=== PATIENT | male | born 1940 | race Caucasian/White ===

== ENCOUNTER → 2018-04-24 07:10 | Outpatient (CLI) | payer OTHER, SELFPAY ==
[2018-04-24 08:15] LABS: Add Manual Diff / Slide Review NO; Basophils Percent Auto 0.3 % (0-2); Eosinophils Percent Auto 1.2 % (2-4); Hematocrit 46.4 % (41-53); Hemoglobin 16.3 g/dL (13.5-17.5); Lymphocytes Percent Auto 18.4 % (25-40); Mean Corpuscular HGB Conc 35.1 % (30-36); Mean Corpuscular Hemoglobin 31.7 PG (26-34); Mean Corpuscular Volume 90.4 fL (80-100); Monocytes Percent Auto 6.7 % (3-14); Neutrophils Absolute Auto 5000 /uL (3000-5900); Neutrophils Percent Auto 73.4 % (50-75); Platelet Count 206 X10^3/uL (150-400); Red Blood Cell Count 5.13 X10^6/uL (4.5-5.9); Red Cell Distribution Width 13.5 % (11.6-14.8); White Blood Cell Count 6.8 X10^3/uL (4.5-11.0)
[2018-04-24 08:18] LABS: Alanine Aminotransferase 49 IU/L (21-72); Albumin 3.9 g/dL (3.5-5.0); Albumin Globulin Ratio 1.6 (1.0-2.8); Alkaline Phosphatase 41 U/L (38-126); Aspartate Aminotransferase 25 IU/L (17-59); Bilirubin Total 0.6 mg/dL (0.2-1.3); Blood Urea Nitrogen 18 mg/dL (9-20); Carbon Dioxide 31 mmol/L (22-32); Chloride 105 mmol/L (98-107); Estimated Glomerular Filt Rate > 60.0 mL/min (>60); Globulin 2.4 g/dL (1.7-4.1); Glucose 84 mg/dL (80-110); HEMOLYSIS 21 (0-50); Potassium 4.1 mmol/L (3.4-5.1); Sodium 143 mmol/L (137-145); Total Protein 6.3 g/dL (6.3-8.2)
[2018-04-24 09:26] LABS: Free T4, Direct Thyroxine 1.23 ng/dL (0.78-2.19)
== END ==
PROVIDERS: PCP Family Medicine; Visit Provider Internal Medicine
DX: E03.9 Hypothyroidism, unspecified (principal); G62.9 Polyneuropathy, unspecified; I63.9 Cerebral infarction, unspecified; I51.3 Intracardiac thrombosis, not elsewhere classified
CPT/HCPCS: 36415; 80053; 84439; 84443; 85025

== ENCOUNTER → 2018-06-19 07:04 | Outpatient (CLI) | payer OTHER, SELFPAY ==
[2018-06-19 09:10] LABS: Free T4, Direct Thyroxine 1.17 ng/dL (0.78-2.19)
[2018-06-19 09:24] LABS: Thyroid Stimulating Hormone 0.57 uIU/mL (0.47-4.68)
== END ==
PROVIDERS: PCP Family Medicine; Visit Provider Internal Medicine
DX: R79.89 Other specified abnormal findings of blood chemistry (principal)
CPT/HCPCS: 36415; 84439; 84443

== ENCOUNTER → 2018-06-25 09:27 | Outpatient (CLI) | payer OTHER, SELFPAY ==
[2018-06-25 11:16] LABS: Cholesterol 124 mg/dL (140-199); HDL Cholesterol 33 mg/dL (40-60); LDL Cholesterol Calculated 68 mg/dL (<100); Triglycerides 117 mg/dL (35-150)
== END ==
PROVIDERS: PCP Family Medicine; Visit Provider Internal Medicine
DX: E78.00 Pure hypercholesterolemia, unspecified (principal); I25.10 Atherosclerotic heart disease of native coronary artery without angina pectoris
CPT/HCPCS: 36415; 80061

== ENCOUNTER → 2018-10-09 14:46 | Outpatient (CLI) | payer OTHER, SELFPAY ==
--- NOTE | 2018-10-09 | DI.US.S_ITS ---
PROCEDURE: US CAROTID DOPPLER BI INDICATIONS: RIGHT OCCLUSION TECHNIQUE: Color and pulse Doppler interrogation was performed of both carotid systems, with image documentation and velocity measurements. COMPARISON: [facility], , CAROTID ARTERY DOPPLER BILAT, 07/28/2012, 10:33. [facility], [place], CAROTID ARTERY DOPPLER BILAT, 09/03/2017, 11:33. [facility], , CAROTID ARTERY DOPPLER BILAT, 02/07/2015, 11:08. FINDINGS: Stenosis calculations are based on SRU (Society of Radiologists in Ultrasound) criteria. Right side: Brachial blood pressure: 134/80 mm Hg. Common carotid artery peak systolic velocity: 74 cm/sec (prior 59 cm/s). Internal carotid artery peak systolic velocity: Occluded, as before Internal carotid artery end diastolic velocity: Occluded, as before External carotid artery peak systolic velocity: 69 cm/sec (prior 74 cm/s). ICA/CCA peak systolic ratio: Occluded. 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 Percent internal carotid artery stenosis: 100% Vertebral artery: Flow direction is antegrade. Left side: Brachial blood pressure: 137/80 mm Hg. Common carotid artery peak systolic velocity: 95 cm/sec (prior 88 cm/s). Internal carotid artery peak systolic velocity: 68 cm/sec (prior 61 cm/s). Internal carotid artery end diastolic velocity: 22 cm/sec (prior 27 cm/s). External carotid artery peak systolic velocity: 60 cm/sec (prior 59 cm/s). ICA/CCA peak systolic ratio: 0.7 (prior 0.7). Jaramillo scale imaging description: Mild atherosclerotic changes are seen. Percent internal carotid artery stenosis: Less than 50% by velocity criteria. Vertebral artery: Flow direction is antegrade. 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 Dictated by: Alejandro Cleveland M.D. on 10/09/2018 at 14:53 Approved by: Alejandro Cleveland M.D. on 10/09/2018 at 14:55
== END ==
PROVIDERS: PCP Family Medicine; Visit Provider Internal Medicine Cardiovascular Disease
DX: I65.21 Occlusion and stenosis of right carotid artery (principal)
CPT/HCPCS: 93880

== ENCOUNTER → 2018-12-09 07:09 | Outpatient (CLI) | payer OTHER, SELFPAY ==
[2018-12-09 08:11] LABS: Add Manual Diff / Slide Review NO; Basophils Absolute Auto 0 /uL (0-100); Basophils Percent Auto 0.2 % (0-2); Eosinophils Absolute Auto 100 /uL (0-450); Hematocrit 46.5 % (41-53); Hemoglobin 16.2 g/dL (13.5-17.5); Lymphocytes Absolute Auto 1100 /uL (1100-4500); Lymphocytes Percent Auto 15.8 % (25-40); Mean Corpuscular HGB Conc 34.8 % (30-36); Mean Corpuscular Hemoglobin 31.2 PG (26-34); Mean Corpuscular Volume 89.7 fL (80-100); Monocytes Absolute Auto 600 /uL (0-900); Monocytes Percent Auto 8.2 % (3-14); Neutrophils Absolute Auto 5300 /uL (1500-7000); Neutrophils Percent Auto 74.8 % (50-75); Platelet Count 197 X10^3/uL (150-400); Red Blood Cell Count 5.19 X10^6/uL (4.5-5.9); Red Cell Distribution Width 14.3 % (11.6-14.8); White Blood Cell Count 7.1 X10^3/uL (4.5-11.0)
[2018-12-09 08:26] LABS: Alanine Aminotransferase 40 IU/L (21-72); Albumin 4.2 g/dL (3.5-5.0); Albumin Globulin Ratio 1.6 (1.0-2.8); Alkaline Phosphatase 48 U/L (38-126); Aspartate Aminotransferase 26 IU/L (17-59); BUN Creatinine Ratio 16.7 (6-22); Bilirubin Total 0.9 mg/dL (0.2-1.3); Blood Urea Nitrogen 15 mg/dL (9-20); Calcium 9.3 mg/dL (8.4-10.2); Carbon Dioxide 31 mmol/L (22-32); Chloride 102 mmol/L (98-107); Cholesterol 116 mg/dL (140-199); Estimated Glomerular Filt Rate > 60.0 mL/min (>60); Globulin 2.6 g/dL (1.7-4.1); Glucose 99 mg/dL (80-110); HDL Cholesterol 31 mg/dL (40-60); HEMOLYSIS < 15 (0-50); LDL Cholesterol Calculated 67 mg/dL (<100); Potassium 4.5 mmol/L (3.4-5.1); Sodium 139 mmol/L (137-145); Total Protein 6.8 g/dL (6.3-8.2); Triglycerides 91 mg/dL (35-150)
[2018-12-09 09:06] LABS: TSH w/ Reflex to FT4 0.33 uIU/mL (0.47-4.68)
[2018-12-09 10:02] LABS: Free T4, Direct Thyroxine 1.19 ng/dL (0.78-2.19)
== END ==
PROVIDERS: PCP Family Medicine; Visit Provider Family Medicine
DX: E03.9 Hypothyroidism, unspecified (principal); E78.00 Pure hypercholesterolemia, unspecified; I25.10 Atherosclerotic heart disease of native coronary artery without angina pectoris
CPT/HCPCS: 36415; 80053; 80061; 84439; 84443; 85025

== ENCOUNTER 2019-04-17 13:19 | Emergency (ER) | payer OTHER, SELFPAY ==
[2019-04-17 13:23] VITALS: BP 113/65; PULSE 68; RESP 16; TEMP 36.6; O2SAT 99; BMI 27.8
--- NOTE | 2019-04-17 13:32 | DI.RAD.S_ITS ---
PROCEDURE: XR HIP W PEL IF DONE RT 2V INDICATIONS: fall w/ hematoma on right hip TECHNIQUE: AP pelvis with lateral view(s) of the right hip(s). COMPARISON: [facility], CT, CT ABDOMEN PELVIS WITH CONTRAST, 12/11/2017, 13:20. [facility], CT, ABDOMEN/PELVIS WITH CONTRAST, 02/03/2016, 9:23. FINDINGS: Bones: No fractures or dislocations. Pelvic ring appears intact. No suspicious bony lesions. Mild degenerative joint disease in hips and sacroiliac joints bilaterally. Soft tissues: The visualized bowel gas pattern is normal. No suspicious soft tissue calcifications. IMPRESSION: No acute bony injuries. Dictated by: Fay Bell M.D. on 04/17/2019 at 13:59 Approved by: Fay Bell M.D. on 04/17/2019 at 14:00
[2019-04-17 14:02] LABS: Add Manual Diff / Slide Review NO; Basophils Absolute Auto 0 /uL (0-100); Basophils Percent Auto 0.3 % (0-2); Eosinophils Absolute Auto 100 /uL (0-450); Eosinophils Percent Auto 1.2 % (2-4); Hematocrit 39.9 % (41-53); Hemoglobin 13.7 g/dL (13.5-17.5); Lymphocytes Absolute Auto 1000 /uL (1100-4500); Lymphocytes Percent Auto 14.3 % (25-40); Mean Corpuscular HGB Conc 34.3 % (30-36); Mean Corpuscular Hemoglobin 31.1 PG (26-34); Mean Corpuscular Volume 90.5 fL (80-100); Monocytes Absolute Auto 600 /uL (0-900); Monocytes Percent Auto 7.7 % (3-14); Neutrophils Absolute Auto 5600 /uL (1500-7000); Neutrophils Percent Auto 76.5 % (50-75); Platelet Count 205 X10^3/uL (150-400); Red Blood Cell Count 4.41 X10^6/uL (4.5-5.9); Red Cell Distribution Width 13.9 % (11.6-14.8); White Blood Cell Count 7.3 X10^3/uL (4.5-11.0)
[2019-04-17 14:07] LABS: INR 2.8 (0.9-1.3); Prothrombin Time 32.8 SECONDS (10.1-12.7)
[2019-04-17 14:10] LABS: PTT Partial Thromboplastin Tim 41 SECONDS (26.4-36.2)
--- NOTE | 2019-04-17 14:45 | ED.LOWEXIN ---
HPI - Extremity Injury (Lower) General Chief Complaint: Extremity Injury, Lower Stated Complaint: Fell Bruise down right leg Time Seen by Provider: 04/17/19 14:33 Source: patient Mode of arrival: ambulatory Limitations: no limitations History of Present Illness HPI Narrative: Who presents with a contusion on his right buttock and right leg. He is on Coumadin for atrial fibrillation. He was power washing something when he got tripped up and fell to the ground 2 days ago. He did not hit his head no loss of consciousness. He was moving around okay yesterday however this morning he woke up and had a significant contusion. His x-ray is negative. MD complaint: hip injury and thigh injury Onset (ago): day(s) (2) Related Data Home Medications Medication Instructions Recorded Confirmed multivitamin [Multiple Vitamins] 1 tab PO QDAY #0 08/15/11 12/17/18 omega 3-txx-hdc-fish oil [Fish Oil] 1,000 mg PO BID #0 08/20/11 12/17/18 losartan [Cozaar] 25 mg PO QDAY #0 08/28/17 12/17/18 metoprolol succinate [Toprol XL] 25 mg PO QDAY #0 08/28/17 12/17/18 omeprazole 20 mg PO QPM #0 08/28/17 12/17/18 rosuvastatin 10 mg PO QDAY #0 09/02/17 12/17/18 cholecalciferol (vitamin D3) 2,000 2,000 unit PO DAILY 06/25/18 12/17/18 unit capsule aspirin 81 mg tablet,delayed 81 mg PO DAILY #0 tab 12/17/18 12/17/18 release levothyroxine 75 mcg capsule 75 mcg PO DAILY 12/17/18 12/17/18 Previous Rx's Medication Instructions Recorded warfarin 5 mg tablet 5 mg PO 1700 #120 tab 10/13/18 levothyroxine 75 mcg capsule 75 mcg PO DAILY #60 cap 04/14/19 hydrocodone-acetaminophen [[place]] 1 tab PO Q6H PRN #10 tab 04/17/19 Allergies Allergy/AdvReac Type Severity Reaction Status Date / Time Influenza Virus Vaccines Allergy Unknown Verified 12/17/18 11:41 [INFLUENZA VIRUS VACCINES] Review of Systems Review of Systems GENERAL: Denies chills,fever HEENT: Denies throat pain RESPIRATORY: Denies dyspnea, cough, wheezing CARDIOVASCULAR: Denies chest pain, palpitations GASTROINTESTINAL: Denies nausea, vomiting MUSCULOSKELETAL: Right hip pain SKIN: Contusion NEUROLOGIC: Denies weakness, dizziness, headache, numbness 8 point review of systems is negative except for those stated above and HPI [facility] Medical History CAD (coronary artery disease) (Chronic) Cataract (Chronic) Diverticular disease (Chronic 2003) Foot pain (Chronic 2013) GERD (gastroesophageal reflux disease) (Chronic) 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) Hearing loss (Chronic 2012) LV (left ventricular) mural thrombus (Chronic 2016) Peripheral neuropathy (Chronic 2001) 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 (Resolved) Colon polyps (Resolved 2009) Colorectal cancer (Resolved 1990) Heart failure, diastolic (Resolved 1996) Measles (Resolved) Myocardial infarction (Resolved 1996) Rubella (Resolved) Surgical History Status post colonoscopy (Suspected 2012) Anesthesia (Resolved) Status post colectomy (Resolved 1990) Status post coronary artery stent placement (Resolved 01/2008) Status post tonsillectomy and adenoidectomy (Resolved 2011) Family History (Updated 04/24/18 @ 11:53 by Ashli Luna) Father Heart disease Colon cancer Mother Stroke Heart disease Heart attack Social History marital status: Smoking Status: Never smoker alcohol intake: current (1-3 A WEEK ) substance use type: does not use Family History Father Heart disease Colon cancer Mother Stroke Heart disease Heart attack Social History marital status: Smoking Status: Never smoker alcohol intake: current (1-3 A WEEK ) substance use type: does not use Exam Initial Vital Signs Initial Vital Signs: Vital Signs Temperature 97.9 F 04/17/19 13:23 Pulse Rate 68 04/17/19 13:23 Respiratory Rate 16 04/17/19 13:23 Blood Pressure 113/65 04/17/19 13:23 Pulse Oximetry 99 04/17/19 13:23 GENERAL: Pleasant well-appearing male no acute distress CARDIOVASCULAR: peripheral pulses in tact, cap refill <2 sec RESPIRATORY: No respiratory distress, speaks in full sentences without difficulty EXTREMITIES: Normal range of motion, no clubbing or edema. Neurovascularly intact Right leg neurovascularly intact able to move it easily. NEUROLOGICAL: Cranial nerves II through XII grossly intact. Normal gait and speech. SKIN: Significant contusion on the posterior right thigh and right buttock. Course Orders Ordered: ED Orders 04/17/19 13:32 XR hip w pel if done RT 2V Stat 04/17/19 13:53 Complete Blood Count AUTO DIFF Stat Partial Thromboplastin Time Stat Prothrombin Time INR Stat Vital Signs - 8 hr 04/17/19 13:23 04/17/19 15:02 Temperature 97.9 F Pulse Rate 68 63 Respiratory Rate 16 15 Blood Pressure 113/65 Blood Pressure [Left Arm] 119/63 Pulse Oximetry 99 100 MDM - Extremity Injury (Lower) Lab Data Attestation: I reviewed the patient's lab results. Result diagrams: 04/17/19 13:53 Lab Results 04/17/19 04/17/19 Range/Units 13:53 13:53 WBC 7.3 (4.5-11.0) X10^3/uL RBC 4.41 L (4.5-5.9) X10^6/uL Hgb 13.7 (13.5-17.5) g/dL Hct 39.9 L (41-53) % MCV 90.5 (80-100) fL MCH 31.1 (26-34) PG MCHC 34.3 (30-36) % RDW 13.9 (11.6-14.8) % Plt Count 205 (150-400) X10^3/uL Neut % (Auto) 76.5 H (50-75) % Lymph % (Auto) 14.3 L (25-40) % [place] % (Auto) 7.7 (3-14) % Eos % (Auto) 1.2 L (2-4) % Baso % (Auto) 0.3 (0-2) % Neut # (Auto) 5600 (3199-2361) /uL Lymph # (Auto) 1000 L (7938-5334) /uL [place] # (Auto) 600 (0-900) /uL Eos # (Auto) 100 (0-450) /uL Baso # (Auto) 0 (0-100) /uL PT 32.8 H (10.1-12.7) SECONDS INR 2.8 H (0.9-1.3) APTT 41 H (26.4-36.2) SECONDS Imaging Data right hip: Radiologist's impression: PROCEDURE: XR HIP W PEL IF DONE RT 2V INDICATIONS: fall w/ hematoma on right hip TECHNIQUE: AP pelvis with lateral view(s) of the right hip(s). COMPARISON: [facility], CT, CT ABDOMEN PELVIS WITH CONTRAST, 12/11/2017, 13:20. [facility], CT, ABDOMEN/PELVIS WITH CONTRAST, 02/03/2016, 9:23. FINDINGS: Bones: No fractures or dislocations. Pelvic ring appears intact. No suspicious bony lesions. Mild degenerative joint disease in hips and sacroiliac joints bilaterally. Soft tissues: The visualized bowel gas pattern is normal. No suspicious soft tissue calcifications. IMPRESSION: No acute bony injuries. Dictated by: Fay Bell M.D. on 04/17/2019 at 13:59 MDM Narrative Medical decision making narrative: Patient hemoglobin hematocrit stable. INR earlier today was 3.1 he has already been lysed PCP to hold off Coumadin for tonight. Recheck today is 2.8. I do agree with holding off the Coumadin tonight and resuming tomorrow. Discharge Plan Departure Patient Disposition: Home Clinical Impression: Contusion Qualifiers: Encounter type: initial encounter Contusion area: lower leg Laterality: right Qualified Code(s): S80.11XA - Contusion of right lower leg, initial encounter Discharge Date/Time: 04/17/19 15:04 Interventions: ED Discharge Assessment Last Done: 04/17/19 15:04 Instructions: Contusion Activity Restrictions/Additional Instructions: *You have been diagnosed with large contusion on right leg *What to do: Elevate ice increased movement as tolerated. This will be discolored for a period of time. *Continue to take medications as directed Agree with holding Coumadin tonight and resuming tomorrow as scheduled [place] 1 tablet every 6 hours if needed for severe pain *Follow up with your primary care provider in 2-3 days *Return to ER if you should have increased weakness, numbness tingling or any new, worsening or concerning symptoms CONTROLLED SUBSTANCE DISCHARGE (Narcotoic/benzodiazepine/Flexeril/Phenergan) 1. You have been prescribed narcotic medications, it does have acetaminophen/Tylenol/paracetamol in it so do not take extra Tylenol or Tylenol containing products 2. Please understand that we cannot provide further refills of narcotics, benzodiazepines or controlled substances through the ED and her pain management will need to be through your provider. 3. While on these medications you cannot drive or operate heavy machinery. 4. You cannot sign legal documents or perform any duties such as this. 5. As long as you're taking opiate pain medications he should also be taking a stool softener such as Colace, Dulcolax, MiraLAX or prune juice, to help avoid constipation. Prescriptions: New hydrocodone-acetaminophen [[place]] 5-325 mg tablet 1 tab PO Q6H PRN (Reason: pain) Qty: 10 RF: 0 No Action multivitamin [Multiple Vitamins] 1 EACH tablet 1 tab PO QDAY Qty: 0 RF: 0 omega 7-jsl-tjd-fish oil [Fish Oil] 1,000 MG capsule 1,000 mg PO BID Qty: 0 RF: 0 losartan [Cozaar] 25 MG tablet 25 mg PO QDAY Qty: 0 RF: 0 omeprazole 20 MG capsule,delayed release(DR/EC) 20 mg PO QPM Qty: 0 RF: 0 metoprolol succinate [Toprol XL] 25 MG tablet extended release 24 hr 25 mg PO QDAY Qty: 0 RF: 0 rosuvastatin 10 MG tablet 10 mg PO QDAY Qty: 0 RF: 0 aspirin 81 mg tablet,delayed release (DR/EC) 81 mg PO DAILY Qty: 0 RF: 0 levothyroxine 75 mcg capsule 75 mcg PO DAILY Qty: 60 RF: 2 cholecalciferol (vitamin D3) 2,000 unit capsule 2,000 unit PO DAILY RF: 0 warfarin [Coumadin] 5 mg tablet 5 mg PO 1700 Qty: 120 RF: 3 levothyroxine 75 mcg capsule 75 mcg PO DAILY RF: 0 Referrals: Amandeep Olson MD [Primary Care Provider] -
--- NOTE | 2019-04-17 14:51 | ED_ITS ---
HPI - Extremity Injury (Lower) General Chief Complaint: Extremity Injury, Lower Stated Complaint: Fell Bruise down right leg Time Seen by Provider: 04/17/19 14:33 Source: patient Mode of arrival: ambulatory Limitations: no limitations History of Present Illness HPI Narrative: Who presents with a contusion on his right buttock and right leg. He is on Coumadin for atrial fibrillation. He was power washing something when he got tripped up and fell to the ground 2 days ago. He did not hit his head no loss of consciousness. He was moving around okay yesterday however this morning he woke up and had a significant contusion. His x-ray is negative. MD complaint: hip injury and thigh injury Onset (ago): day(s) (2) Related Data Home Medications Medication Instructions Recorded Confirmed multivitamin [Multiple Vitamins] 1 tab PO QDAY #0 08/15/11 12/17/18 omega 7-noh-ivu-fish oil [Fish Oil] 1,000 mg PO BID #0 08/20/11 12/17/18 losartan [Cozaar] 25 mg PO QDAY #0 08/28/17 12/17/18 metoprolol succinate [Toprol XL] 25 mg PO QDAY #0 08/28/17 12/17/18 omeprazole 20 mg PO QPM #0 08/28/17 12/17/18 rosuvastatin 10 mg PO QDAY #0 09/02/17 12/17/18 cholecalciferol (vitamin D3) 2,000 2,000 unit PO DAILY 06/25/18 12/17/18 unit capsule aspirin 81 mg tablet,delayed 81 mg PO DAILY #0 tab 12/17/18 12/17/18 release levothyroxine 75 mcg capsule 75 mcg PO DAILY 12/17/18 12/17/18 Previous Rx's Medication Instructions Recorded warfarin 5 mg tablet 5 mg PO 1700 #120 tab 10/13/18 levothyroxine 75 mcg capsule 75 mcg PO DAILY #60 cap 04/14/19 hydrocodone-acetaminophen [[place]] 1 tab PO Q6H PRN #10 tab 04/17/19 Allergies Allergy/AdvReac Type Severity Reaction Status Date / Time Influenza Virus Vaccines Allergy Unknown Verified 12/17/18 11:41 [INFLUENZA VIRUS VACCINES] Review of Systems Review of Systems GENERAL: Denies chills,fever HEENT: Denies throat pain RESPIRATORY: Denies dyspnea, cough, wheezing CARDIOVASCULAR: Denies chest pain, palpitations GASTROINTESTINAL: Denies nausea, vomiting MUSCULOSKELETAL: Right hip pain SKIN: Contusion NEUROLOGIC: Denies weakness, dizziness, headache, numbness 8 point review of systems is negative except for those stated above and HPI [facility] Medical History CAD (coronary artery disease) (Chronic) Cataract (Chronic) Diverticular disease (Chronic 2003) Foot pain (Chronic 2013) GERD (gastroesophageal reflux disease) (Chronic) 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) Hearing loss (Chronic 2012) LV (left ventricular) mural thrombus (Chronic 2016) Peripheral neuropathy (Chronic 2001) 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 (Resolved) Colon polyps (Resolved 2009) Colorectal cancer (Resolved 1990) Heart failure, diastolic (Resolved 1996) Measles (Resolved) Myocardial infarction (Resolved 1996) Rubella (Resolved) Surgical History Status post colonoscopy (Suspected 2012) Anesthesia (Resolved) Status post colectomy (Resolved 1990) Status post coronary artery stent placement (Resolved 01/2008) Status post tonsillectomy and adenoidectomy (Resolved 2011) Family History (Updated 04/24/18 @ 11:53 by Ashli Luna) Father Heart disease Colon cancer Mother Stroke Heart disease Heart attack Social History marital status: Smoking Status: Never smoker alcohol intake: current (1-3 A WEEK ) substance use type: does not use Family History Father Heart disease Colon cancer Mother Stroke Heart disease Heart attack Social History marital status: Smoking Status: Never smoker alcohol intake: current (1-3 A WEEK ) substance use type: does not use Exam Initial Vital Signs Initial Vital Signs: Vital Signs Temperature 97.9 F 04/17/19 13:23 Pulse Rate 68 04/17/19 13:23 Respiratory Rate 16 04/17/19 13:23 Blood Pressure 113/65 04/17/19 13:23 Pulse Oximetry 99 04/17/19 13:23 GENERAL: Pleasant well-appearing male no acute distress CARDIOVASCULAR: peripheral pulses in tact, cap refill <2 sec RESPIRATORY: No respiratory distress, speaks in full sentences without difficulty EXTREMITIES: Normal range of motion, no clubbing or edema. Neurovascularly intact Right leg neurovascularly intact able to move it easily. NEUROLOGICAL: Cranial nerves II through XII grossly intact. Normal gait and speech. SKIN: Significant contusion on the posterior right thigh and right buttock. Course Orders Ordered: ED Orders 04/17/19 13:32 XR hip w pel if done RT 2V Stat 04/17/19 13:53 Complete Blood Count AUTO DIFF Stat Partial Thromboplastin Time Stat Prothrombin Time INR Stat Vital Signs - 8 hr 04/17/19 13:23 04/17/19 15:02 Temperature 97.9 F Pulse Rate 68 63 Respiratory Rate 16 15 Blood Pressure 113/65 Blood Pressure [Left Arm] 119/63 Pulse Oximetry 99 100 MDM - Extremity Injury (Lower) Lab Data Attestation: I reviewed the patient's lab results. Result diagrams: 04/17/19 13:53 Lab Results 04/17/19 04/17/19 Range/Units 13:53 13:53 WBC 7.3 (4.5-11.0) X10^3/uL RBC 4.41 L (4.5-5.9) X10^6/uL Hgb 13.7 (13.5-17.5) g/dL Hct 39.9 L (41-53) % MCV 90.5 (80-100) fL MCH 31.1 (26-34) PG MCHC 34.3 (30-36) % RDW 13.9 (11.6-14.8) % Plt Count 205 (150-400) X10^3/uL Neut % (Auto) 76.5 H (50-75) % Lymph % (Auto) 14.3 L (25-40) % [place] % (Auto) 7.7 (3-14) % Eos % (Auto) 1.2 L (2-4) % Baso % (Auto) 0.3 (0-2) % Neut # (Auto) 5600 (8242-7211) /uL Lymph # (Auto) 1000 L (6755-2784) /uL [place] # (Auto) 600 (0-900) /uL Eos # (Auto) 100 (0-450) /uL Baso # (Auto) 0 (0-100) /uL PT 32.8 H (10.1-12.7) SECONDS INR 2.8 H (0.9-1.3) APTT 41 H (26.4-36.2) SECONDS Imaging Data right hip: Radiologist's impression: PROCEDURE: XR HIP W PEL IF DONE RT 2V INDICATIONS: fall w/ hematoma on right hip TECHNIQUE: AP pelvis with lateral view(s) of the right hip(s). COMPARISON: [facility], CT, CT ABDOMEN PELVIS WITH CONTRAST, 12/11/2017, 13:20. [facility], CT, ABDOMEN/PELVIS WITH CONTRAST, 02/03/2016, 9:23. FINDINGS: Bones: No fractures or dislocations. Pelvic ring appears intact. No suspicious bony lesions. Mild degenerative joint disease in hips and sacroiliac joints bilat erally. Soft tissues: The visualized bowel gas pattern is normal. No suspicious soft tissue calcifications. IMPRESSION: No acute bony injuries. Dictated by: Fay Bell M.D. on 04/17/2019 at 13:59 MDM Narrative Medical decision making narrative: Patient hemoglobin hematocrit stable. INR earlier today was 3.1 he has already been lysed PCP to hold off Coumadin for tonight. Recheck today is 2.8. I do agree with holding off the Coumadin tonight and resuming tomorrow. Discharge Plan Departure Patient Disposition: Home Clinical Impression: Contusion Qualifiers: Encounter type: initial encounter Contusion area: lower leg Laterality: right Qualified Code(s): S80.11XA - Contusion of right lower leg, initial encounter Discharge Date/Time: 04/17/19 15:04 Interventions: ED Discharge Assessment Last Done: 04/17/19 15:04 Instructions: Contusion Activity Restrictions/Additional Instructions: *You have been diagnosed with large contusion on right leg *What to do: Elevate ice increased movement as tolerated. This will be discolored for a period of time. *Continue to take medications as directed Agree with holding Coumadin tonight and resuming tomorrow as scheduled [place] 1 tablet every 6 hours if needed for severe pain *Follow up with your primary care provider in 2-3 days *Return to ER if you should have increased weakness, numbness tingling or any new, worsening or concerning symptoms CONTROLLED SUBSTANCE DISCHARGE (Narcotoic/benzodiazepine/Flexeril/Phenergan) 1. You have been prescribed narcotic medications, it does have acetaminophen/Tylenol/paracetamol in it so do not take extra Tylenol or Tylenol containing products 2. Please understand that we cannot provide further refills of narcotics, benzodiazepines or controlled substances through the ED and her pain management will need to be through your provider. 3. While on these medications you cannot drive or operate heavy machinery. 4. You cannot sign legal documents or perform any duties such as this. 5. As long as you're taking opiate pain medications he should also be taking a stool softener such as Colace, Dulcolax, MiraLAX or prune juice, to help avoid constipation. Prescriptions: New hydrocodone-acetaminophen [[place]] 5-325 mg tablet 1 tab PO Q6H PRN (Reason: pain) Qty: 10 RF: 0 No Action multivitamin [Multiple Vitamins] 1 EACH tablet 1 tab PO QDAY Qty: 0 RF: 0 omega 6-fvl-qsz-fish oil [Fish Oil] 1,000 MG capsule 1,000 mg PO BID Qty: 0 RF: 0 losartan [Cozaar] 25 MG tablet 25 mg PO QDAY Qty: 0 RF: 0 omeprazole 20 MG capsule,delayed release(DR/EC) 20 mg PO QPM Qty: 0 RF: 0 metoprolol succinate [Toprol XL] 25 MG tablet extended release 24 hr 25 mg PO QDAY Qty: 0 RF: 0 rosuvastatin 10 MG tablet 10 mg PO QDAY Qty: 0 RF: 0 aspirin 81 mg tablet,delayed release (DR/EC) 81 mg PO DAILY Qty: 0 RF: 0 levothyroxine 75 mcg capsule 75 mcg PO DAILY Qty: 60 RF: 2 cholecalciferol (vitamin D3) 2,000 unit capsule 2,000 unit PO DAILY RF: 0 warfarin [Coumadin] 5 mg tablet 5 mg PO 1700 Qty: 120 RF: 3 levothyroxine 75 mcg capsule 75 mcg PO DAILY RF: 0 Referrals: Amandeep Olson MD [Primary Care Provider] -
[2019-04-17 15:02] VITALS: BP 119/63; PULSE 63; RESP 15; O2SAT 100
== END 2019-04-17 15:04 | disposition home or self-care (01) ==
PROVIDERS: Emergency Provider Emergency Medicine; PCP Family Medicine
DX: S80.11XA Contusion of right lower leg, initial encounter (principal); S30.0XXA Contusion of lower back and pelvis, initial encounter; W01.0XXA Fall on same level from slipping, tripping and stumbling without subsequent striking against object, initial encounter; Z79.01 Long term (current) use of anticoagulants
CPT/HCPCS: 36415; 73502; 85025; 85610; 85730; 99282; 99284

== ENCOUNTER → 2019-06-03 12:02 | Outpatient (CLI) | payer OTHER, SELFPAY ==
--- NOTE | 2019-06-03 12:04 | DI.US.S_ITS ---
PROCEDURE: US PERIPH VENOUS LOW EXTREM RT INDICATIONS: RIGHT LEG SWELLING AND REDNESS TECHNIQUE: Real-time imaging, as well as color and pulse Doppler interrogation, were performed of the lower extremity deep veins from the inguinal ligament to the popliteal fossa. COMPARISON: None. FINDINGS: The common femoral, femoral and popliteal veins are normally compressible, and free of intraluminal thrombus. Color and pulse Doppler demonstrate normal phasic intraluminal flow. There is normal augmentation response to distal compression maneuver. IMPRESSION: No evidence of deep vein thrombosis involving the right lower extremity. Dictated by: Kristen Trotter MD, PhD on 06/03/2019 at 12:48 Approved by: Kristen Trotter MD, PhD on 06/03/2019 at 12:48
== END ==
PROVIDERS: PCP Family Medicine; Visit Provider Family Medicine
DX: M79.89 Other specified soft tissue disorders (principal)
CPT/HCPCS: 93971

== ENCOUNTER → 2019-10-09 07:49 | Outpatient (CLI) | payer OTHER, SELFPAY ==
[2019-10-09 08:17] LABS: Add Manual Diff / Slide Review NO; Basophils Absolute Auto 0 /uL (0-100); Basophils Percent Auto 0.4 % (0-2); Eosinophils Absolute Auto 100 /uL (0-450); Eosinophils Percent Auto 1.4 % (2-4); Hematocrit 45.2 % (41-53); Hemoglobin 15.7 g/dL (13.5-17.5); Lymphocytes Absolute Auto 1400 /uL (1100-4500); Lymphocytes Percent Auto 20.7 % (25-40); Mean Corpuscular HGB Conc 34.7 % (30-36); Mean Corpuscular Hemoglobin 30.9 PG (26-34); Mean Corpuscular Volume 89.1 fL (80-100); Monocytes Absolute Auto 500 /uL (0-900); Monocytes Percent Auto 7.3 % (3-14); Neutrophils Absolute Auto 4900 /uL (1500-7000); Neutrophils Percent Auto 70.2 % (50-75); Platelet Count 216 X10^3/uL (150-400); Red Blood Cell Count 5.07 X10^6/uL (4.5-5.9)
[2019-10-09 08:34] LABS: Hemoglobin A1C% w Est Avg Glu 5.3 % (4.0-6.0)
[2019-10-09 08:45] LABS: Erythrocyte Sedimentation Rate 1 MM/HR (0-15)
[2019-10-09 08:48] LABS: Alanine Aminotransferase 29 IU/L (<50); Albumin 3.9 g/dL (3.5-5.0); Albumin Globulin Ratio 2.1 (1.0-2.8); Alkaline Phosphatase 42 U/L (38-126); Aspartate Aminotransferase 25 IU/L (17-59); BUN Creatinine Ratio 17.8 (6-22); Bilirubin Total 0.6 mg/dL (0.2-1.3); Blood Urea Nitrogen 16 mg/dL (9-20); Calcium 8.9 mg/dL (8.4-10.2); Carbon Dioxide 30 mmol/L (22-32); Chloride 104 mmol/L (98-107); Cholesterol 127 mg/dL (140-199); Estimated Glomerular Filt Rate > 60.0 mL/min (>60); Globulin 1.9 g/dL (1.7-4.1); Glucose 98 mg/dL (80-110); HDL Cholesterol 35 mg/dL (40-60); HEMOLYSIS < 15 (0-50); LDL Cholesterol Calculated 74 mg/dL (<100); Potassium 4.2 mmol/L (3.4-5.1); Sodium 139 mmol/L (137-145); Total Protein 5.8 g/dL (6.3-8.2); Triglycerides 90 mg/dL (35-150)
[2019-10-09 09:09] LABS: C-Reactive Protein Quant < 0.5 mg/dL (<1.0)
[2019-10-09 09:50] LABS: Folate > 20.0 ng/mL (2.76-20.0); Vitamin B12 632 pg/mL (239-931)
== END ==
PROVIDERS: PCP Family Medicine; Visit Provider Family Medicine
DX: E78.00 Pure hypercholesterolemia, unspecified (principal); E03.9 Hypothyroidism, unspecified; G62.9 Polyneuropathy, unspecified; I25.5 Ischemic cardiomyopathy; I63.9 Cerebral infarction, unspecified
CPT/HCPCS: 36415; 80053; 80061; 82607; 82746; 83036; 84443; 85025; 85651; 86140

== ENCOUNTER → 2019-11-19 12:41 | Outpatient (CLI) | payer MEDICARE, SELFPAY | PROVIDERS: PCP Family Medicine; Referring Provider Family Medicine; Visit Provider Family Medicine | DX: G57.93 Unspecified mononeuropathy of bilateral lower limbs (principal) | CPT/HCPCS: 95886; 95911 ==

== ENCOUNTER → 2019-11-25 07:15 | Outpatient (CLI) | payer MEDICARE, SELFPAY ==
[2019-11-25 08:39] LABS: Blood Urea Nitrogen 20 mg/dL (9-20); Calcium 9.5 mg/dL (8.4-10.2); Carbon Dioxide 27 mmol/L (22-32); Chloride 104 mmol/L (98-107); Estimated Glomerular Filt Rate > 60.0 mL/min (>60); Glucose 93 mg/dL (80-110); HEMOLYSIS < 15 (0-50); Potassium 3.8 mmol/L (3.4-5.1); Sodium 141 mmol/L (137-145)
== END ==
PROVIDERS: PCP Family Medicine; Referring Provider Internal Medicine Cardiovascular Disease; Visit Provider Internal Medicine Cardiovascular Disease
DX: I25.5 Ischemic cardiomyopathy (principal)
CPT/HCPCS: 36415; 80048

== ENCOUNTER → 2020-05-21 11:06 | Outpatient (CLI) | payer MEDICARE, SELFPAY ==
[2020-05-22 17:34] LABS: COVID19 Sendout Not Detected (Not Detect)
== END ==
PROVIDERS: PCP Family Medicine; Visit Provider Physician Assistant
DX: Z11.59 Encounter for screening for other viral diseases (principal)
CPT/HCPCS: 87635

== ENCOUNTER 2020-05-24 07:30 | Day surgery (SDC) | payer MEDICARE, SELFPAY ==
[2020-05-24 08:00] VITALS: BP 128/70; PULSE 58; RESP 16; TEMP 36.1; O2SAT 99; BMI 28.5
[2020-05-24] MEDS: PROPARACAINE 0.5% OPHTH SOL 2 DROPS EYE-OP (08:15)
[2020-05-24] MEDS: CATARACT EYE COMPOUND (10 DROPS/SYRINGE) 3 DROPS EYE-OP (08:16)
--- NOTE | 2020-05-24 09:04 | PM.PREOP ---
Pre-operative Note Interval Note History & Physical reviewed/Exam performed by Physician: Yes Changes to H&P: No
--- NOTE | 2020-05-24 09:04 | PM.OP.1 ---
Operative Date/Time/Diagnoses Pre-op diagnosis: Nuclear cataract right eye Procedure & Clinicians Procedure: Cataract Surgery Same procedure as scheduled: Yes Surgeon: Sergio Vincent Anesthesia Type: MAC +/- and Sedation Operative Notes Procedure in detail: Patient brought to the operating suite. Tetracaine drops placed in the right eye. Patient was prepped and draped in sterile manner. Wire lid speculum was placed in the eye. Betadine drops were placed on the eye. This was irrigated. Lidocaine jelly was placed on the eye. A paracentesis port was created with a side-port blade. 0.1 mL 1% preservative free lidocaine was injected into the anterior chamber. The anterior chamber was deepened with viscoelastic. 2.6 mm keratome was used to create a temporal clear corneal incision. Cystotome and Utrata forceps were used to create continuous tear capsulorrhexis. Balanced salt solution was used to hydro dissect the nucleus. The phacoemulsification handpiece was inserted and the nucleus was removed using the stop and chop technique. The irrigation aspiration handpiece was inserted and the remaining cortex was removed. Anterior chamber was deepened with viscoelastic. An Jones [id number] intraocular lens with a power of 22.0 was injected into the capsular bag. Irrigation aspiration handpiece was inserted and the remaining viscoelastic was removed. Incision was hydrated with balanced salt solution and found to be leak free with pressure with Weck-Michaela sponges. 0.1 mL Vigamox injected anterior chamber. 0.3 mL Kenalog 10 mg was injected subconjunctivally. Lid speculum was removed. The patient left the operating room in excellent condition. Complications: none Post-operative Condition: stable Disposition: same day surgery
[2020-05-24] MEDS: PHENYLEPHRINE/LIDOCAINE VIAL (OR) 0.2 ML EYE-OP (09:23)
[2020-05-24] MEDS: MOXIFLOXACIN INJ 5 MG/ML VIAL EYE-OP (09:23)
[2020-05-24] MEDS: TRIAMCINOLONE 50 MG/5 ML VIAL INJ (09:23)
[2020-05-24] MEDS: LIDOCAINE JELLY 2% 5 ML 1 APPLIC TOP (09:24)
[2020-05-24] MEDS: CHONDROIDTIN/SOD HYALURONATE 1.05 ML SYRINGE INTRAOCULA (09:24)
[2020-05-24] MEDS: BALANCED SALT IRRIG SOLN NO.2 500 ML, EPINEPHrine 1 MG IRR (09:24)
[2020-05-24] MEDS: TETRACAINE 0.5% OPHTH DROPS 4 ML 2 DROPS EYE-OP (09:24)
[2020-05-24 09:56] VITALS: BP 121/69; PULSE 59; RESP 16; TEMP 36.3; O2SAT 99
--- NOTE | 2020-05-24 09:58 | SUR.PHASEII ---
0945-Pt up and ambulating gait steady, dressed and ready to go. Pt dcd in stable condition with no c/o all dc instructions given to pt and , now dcd via wc to curbside car.
== END 2020-05-24 09:45 | disposition home or self-care (01) ==
LOC: OR 07:32
PROVIDERS: PCP Family Medicine; Referring Provider Family Medicine; Visit Provider Ophthalmology
PROC: (CPT 66984; principal; 2020-05-24 09:15)
DX: H25.11 Age-related nuclear cataract, right eye (principal); I10 Essential (primary) hypertension; E78.5 Hyperlipidemia, unspecified; Z86.73 Personal history of transient ischemic attack (TIA), and cerebral infarction without residual deficits
CPT/HCPCS: 66984; J0171; J2250; J3301

== ENCOUNTER → 2020-06-04 14:46 | Outpatient (CLI) | payer MEDICARE, SELFPAY ==
[2020-06-05 19:27] LABS: COVID19 Sendout Not Detected (Not Detect)
== END ==
PROVIDERS: PCP Family Medicine; Visit Provider Nurse Practitioner
DX: Z11.59 Encounter for screening for other viral diseases (principal)
CPT/HCPCS: 87635

== ENCOUNTER → 2020-06-06 07:08 | Outpatient (CLI) | payer MEDICARE, SELFPAY ==
[2020-06-06 07:51] LABS: Alanine Aminotransferase 37 IU/L (<50); Albumin 3.9 g/dL (3.5-5.0); Albumin Globulin Ratio 1.7 (1.0-2.8); Alkaline Phosphatase 46 U/L (38-126); Aspartate Aminotransferase 29 IU/L (17-59); BUN Creatinine Ratio 14.9 (6-22); Bilirubin Total 0.8 mg/dL (0.2-1.3); Blood Urea Nitrogen 14 mg/dL (9-20); Calcium 8.9 mg/dL (8.4-10.2); Carbon Dioxide 30 mmol/L (22-32); Chloride 105 mmol/L (98-107); Cholesterol 119 mg/dL (140-199); Estimated Glomerular Filt Rate > 60.0 mL/min (>60); Globulin 2.3 g/dL (1.7-4.1); Glucose 100 mg/dL (80-110); HDL Cholesterol 34 mg/dL (40-60); HEMOLYSIS 15 (0-50); LDL Cholesterol Calculated 65 mg/dL (<100); Potassium 4.3 mmol/L (3.4-5.1); Sodium 139 mmol/L (137-145); Total Protein 6.2 g/dL (6.3-8.2); Triglycerides 102 mg/dL (35-150)
== END ==
PROVIDERS: PCP Family Medicine; Referring Provider Internal Medicine Cardiovascular Disease; Visit Provider Internal Medicine Cardiovascular Disease
DX: E78.5 Hyperlipidemia, unspecified (principal)
CPT/HCPCS: 36415; 80053; 80061

== ENCOUNTER 2020-06-07 09:30 | Day surgery (SDC) | payer MEDICARE, SELFPAY ==
[2020-06-07] MEDS: PROPARACAINE 0.5% OPHTH SOL 2 DROPS EYE-OP (10:10)
[2020-06-07] MEDS: CATARACT EYE COMPOUND (10 DROPS/SYRINGE) 3 DROPS EYE-OP (10:15)
[2020-06-07 10:21] VITALS: BP 129/82; PULSE 57; RESP 20; TEMP 36.6; O2SAT 99; BMI 28.5
--- NOTE | 2020-06-07 11:35 | PM.PREOP ---
Pre-operative Note Interval Note History & Physical reviewed/Exam performed by Physician: Yes Changes to H&P: No
--- NOTE | 2020-06-07 11:36 | P.OP_ITS ---
Operative Date/Time/Diagnoses Pre-op diagnosis: Nuclear Cataract Left eye Post-op diagnosis: same Procedure & Clinicians Same procedure as scheduled: Yes Surgeon: Sergio Vincent Anesthesia Type: MAC +/- and Sedation Operative Notes Procedure in detail: Patient brought to the operating suite. Tetracaine drops placed in the left eye. Patient was prepped and draped in sterile manner. Wire lid speculum was placed in the eye. Betadine drops were placed on the eye. This was irrigated. Lidocaine jelly was placed on the eye. A paracentesis port was created with a side-port blade. 0.1 mL 1% preservative free lidocaine was injected into the anterior chamber. The anterior chamber was deepened with viscoelastic. 2.6 mm keratome was used to create a temporal clear corneal incision. Cystotome and Utrata forceps were used to create continuous tear capsulorrhexis. Balanced salt solution was used to hydro dissect the nucleus. The phacoemulsification handpiece was inserted and the nucleus was removed using the stop and chop technique. The irrigation aspiration handpiece was inserted and the remaining cortex was removed. Anterior chamber was deepened with viscoe lastic. An Jones ZCB00 intraocular lens with a power of 21.5 was injected into the capsular bag. Irrigation aspiration handpiece was inserted and the remaining viscoelastic was removed. Incision was hydrated with balanced salt solution and found to be leak free with pressure with Weck-Michaela sponges. 0.1 mL Vigamox injected anterior chamber. 0.3 mL Kenalog 10 mg was injected subconjunctivally. Lid speculum was removed. The patient left the operating room in excellent condition. Complications: none Post-operative Condition: stable Disposition: same day surgery
[2020-06-07] MEDS: PHENYLEPHRINE/LIDOCAINE VIAL (OR) 0.2 ML EYE-OP (12:00)
[2020-06-07] MEDS: MOXIFLOXACIN INJ 5 MG/ML VIAL EYE-OP (12:00)
[2020-06-07] MEDS: TRIAMCINOLONE 50 MG/5 ML VIAL INJ (12:00)
[2020-06-07] MEDS: CHONDROIDTIN/SOD HYALURONATE 1.05 ML SYRINGE INTRAOCULA (12:01)
[2020-06-07] MEDS: BALANCED SALT IRRIG SOLN NO.2 500 ML, EPINEPHrine 1 MG IRR (12:01)
[2020-06-07] MEDS: LIDOCAINE JELLY 2% 5 ML 1 APPLIC TOP (12:01)
[2020-06-07] MEDS: TETRACAINE 0.5% OPHTH DROPS 4 ML 2 DROPS EYE-OP (12:01)
[2020-06-07 12:13] VITALS: BP 125/84; PULSE 56; RESP 18; TEMP 36.4; O2SAT 99
== END 2020-06-07 12:25 | disposition home or self-care (01) ==
PROVIDERS: PCP Family Medicine; Referring Provider Family Medicine; Visit Provider Ophthalmology
PROC: (CPT 66984; principal; 2020-06-07 11:15)
DX: H25.12 Age-related nuclear cataract, left eye (principal); E78.5 Hyperlipidemia, unspecified; I10 Essential (primary) hypertension; Z86.73 Personal history of transient ischemic attack (TIA), and cerebral infarction without residual deficits; Z79.01 Long term (current) use of anticoagulants
CPT/HCPCS: 66984; J0171; J2250; J3301

== ENCOUNTER → 2020-06-13 10:39 | Outpatient (CLI) | payer MEDICARE, SELFPAY ==
--- NOTE | 2020-06-13 | DI.US.S_ITS ---
PROCEDURE: US CAROTID DOPPLER BI INDICATIONS: STENOSIS TECHNIQUE: Color and pulse Doppler interrogation was performed of both carotid systems, with image documentation and velocity measurements. COMPARISON: [facility], , US CAROTID DOPPLER BI, 10/09/2018, 14:53. [facility], , CAROTID ARTERY DOPPLER BILAT, 09/03/2017, 11:33. FINDINGS: Stenosis calculations are based on SRU (Society of Radiologists in Ultrasound) criteria. Right side: Brachial blood pressure: 135/79 mm Hg. Common carotid artery peak systolic velocity: 58 cm/sec. Internal carotid artery peak systolic velocity: Occluded. Internal carotid artery end diastolic velocity: Occluded. External carotid artery peak systolic velocity: 56 cm/sec. ICA/CCA peak systolic ratio: Not applicable . Jaramillo scale imaging description: Occluded internal carotid artery, previously the case also. Percent internal carotid artery stenosis: Occlusion as was previously the case. . Vertebral artery: Flow direction is antegrade. Left side: Brachial blood pressure: 131/73 mm Hg. Common carotid artery peak systolic velocity: 78 cm/sec. Internal carotid artery peak systolic velocity: 29 cm/sec. Internal carotid artery end diastolic velocity: 64 cm/sec. External carotid artery peak systolic velocity: 64 cm/sec. ICA/CCA peak systolic ratio: 0.9 . Jaramillo scale imaging description: Minimal soft plaque Percent internal carotid artery stenosis: Less than 50% stenosis . Vertebral artery: Flow direction is antegrade. IMPRESSION: Stable appearance over time, occlusion of the right internal carotid artery, less than 50% stenosis with minimal atherosclerotic irregularity involving the left internal carotid artery. Vertebral arterial flow is antegrade, bilaterally, showing symmetric phasicity and flow characteristics. Dictated by: Carter Gardiner M.D. on 06/13/2020 at 13:32 Approved by: Carter Gardiner M.D. on 06/13/2020 at 13:35
== END ==
PROVIDERS: PCP Family Medicine; Referring Provider Family Medicine; Visit Provider Internal Medicine Cardiovascular Disease
DX: I65.21 Occlusion and stenosis of right carotid artery (principal)
CPT/HCPCS: 93880

== ENCOUNTER 2020-10-24 13:00 | Outpatient (RCR) | payer MEDICARE, SELFPAY ==
--- NOTE | 2020-08-29 17:12 | PT.OIE ---
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 Colon polyps (2009) Colorectal cancer (1990) Diverticular disease (2003) Foot pain (2013) GERD (gastroesophageal reflux disease) Guillain-[place] syndrome () Hearing loss (2012) Heart failure, diastolic (1996) LV (left ventricular) mural thrombus (2016) Measles Myocardial infarction (1996) Peripheral neuropathy (2001) Rubella Past Surgical History (Last Reviewed 04/17/19 @ 14:47 by Giovanna Aparicio DO) Anesthesia Status post colectomy (1990) Status post colonoscopy (2012) Status post coronary artery stent placement (01/2008) Status post tonsillectomy and adenoidectomy (2011) Visit Care Team Role Provider Type Amandeep Olson MD Primary Care Provider Physician Specialty: [facility] Address: [address] [place] [address], [address] Email: [email or web address] Deep Dominguez MD Attending Provider Non-Staff Referring Provider Specialty: Neurology Address: [address] [place] [address], [id number] Email: Physical Therapy Initial Evaluation PT-OP-A Visit Information Start: 08/29/20 16:24 Freq: Status: Active Protocol: Document 08/29/20 16:25 HH (Rec: 08/29/20 17:12 [email or web address]) Out-Patient Physical Therapy Visit Information Visit Information Visit Type Initial Evaluation Visit Start Time 15:16 Visit Stop Time 16:00 Total Visit Minutes 44 Visit Number 1 Number of COMMODITY TRADER Visits 0 Evaluation Information Evaluation Date 08/29/20 Precautions Precautions Hx of GBS hx of CAD and stent placements PT-OP-B Current Condition Start: 08/29/20 16:24 Freq: Status: Active Protocol: Document 08/29/20 16:25 HH (Rec: 08/29/20 17:12 [email or web address]) Current Condition History of Current Condition Onset Date 15 years ago Current Complaints ataxic gait, decreased in balance, post GBS 15 years ago History of Current Condition Pt is a80 yo male here to improve his balance and LE strength. Per EMR, pt has a complex PMH which includes ischemic cardiomyopathy with CAD and placement of strents. 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 He also had Guilain-[place] about 15 years ago who has decreased muscle mass and muscle strength on R calf > R thigh, along with numbness and burning sensation from his knee down. In addition, pt reports he started feeling the same for his LLE since 1.5 year ago but he has been doing exercises to slow his progression but it didnt help much as he stated. It has been going on long enough and getting worse that he is concerned. It is not associated with any other neuropathic symptoms such as in his fingers or toes. Pt has been seeing Dr. Olson for follow ups with his medical conditions. 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 Treatment Goals Patient/Caregiver Goals 1. to improve his overall balance and reduce his fall risks 2. to have a home exercise program to slow down his GBS progression. Current Functional Impairments (Reported) Functional Limitations- Other pt stated he has been falling once a month and mostly d/t tripping while walking. Personal Factors Other Personal Factors That May Effect see H&P Therapy/Recovery PT-OP-D Balance Start: 08/29/20 16:24 Freq: Status: Active Protocol: Document 08/29/20 16:25 (Rec: 08/29/20 17:12 [email or web address]) Balance Tests Single Limb Standing Single Limb- Right 1 Single Limb- Left 3 Talavera Balance Assessment Evaluation Sitting to Standing Ability Independent w/Hands Unsupported Stance Safely- 2 minutes Sitting Unsupported, Feet on Floor Safely- 2 minutes Standing to Sitting Ability Safely, Minimal Hand Use Transfer Ability Safely, Hand Use Unsupported Stance- Eyes Closed Safely, 10 seconds Unsupported Stance- Eyes Open Supervision to maintain Reaching Forward Standing Safely, 5 inches Pick- Up Object From Floor Supervision Look Behind Shoulder - Standing Shifts Weight Unilateral Turning 360 Degrees Turns slowly, but safely Unsupported Stance, Alternating Feet on (I)- 8 Steps in > 20 secs Stair Unsupported Tandem Stance Assist to Step-15 seconds Unilateral Leg Stance Lifts Leg/Unable to Hold Total Score Talavera Total Score (out of 56 points) 41 Talavera Impairment Rating 20 to 39% Impaired (Score 34- 44) PT-OP-E Functional Tests Start: 08/29/20 16:24 Freq: Status: Active Protocol: Document 08/29/20 16:25 HH (Rec: 08/29/20 17:12 [email or web address]) Functional Tests 6 Minute Walk Test Distance 1265 Device Used none Comments +ve trendelenburg sign on R, R foot slap, no breaks taken PT-OP-G Mobility & Gait Start: 08/29/20 16:24 Freq: Status: Active Protocol: Document 08/29/20 16:25 HH (Rec: 08/29/20 17:12 [email or web address]) OP Gait Assessment Gait Deviations General Gait Pattern Antalgic,Ataxic,Decreased Stride Length,Decreased Feet Clearance,Wide Based Gait Factors Limiting Gait Function Factors Limiting Gait Function Abnormal Tonal Influences, Decreased Activity Tolerance, Decreased Strength,Poor Balance Comments Gait Comments Pt amb with a R foot slap and decreased stance phase on R, along with +ve trendelenburg sign. PT-OP-H Neuro Start: 08/29/20 16:24 Freq: Status: Active Protocol: Document 08/29/20 16:25 HH (Rec: 08/29/20 17:12 [email or web address]) Sensation Evaluation Gross Sensation Gross Sensation Left LE Impaired,Right LE Impaired Sensation Description Numbness Comments Summary Comments decreased sensation to touch and pressure with numbness from knee down bilaterally Deep Tendon Reflex & Clonus Assessment Deep Tendon Reflex Bilateral Achilles Deep Tendon Reflex 1+ Diminished Right Patellar Deep Tendon Reflex 2+ Normal Left Patellar Deep Tendon Reflex 0 Absent PT-OP-J Posture/Palpation/Skin Start: 08/29/20 16:24 Freq: Status: Active Protocol: Document 08/29/20 16:25 HH (Rec: 08/29/20 17:12 [email or web address]) Posture Evaluation Position Standing Evaluation View Anterior Comments Posture Comments WBOS in static stance PT-OP-M Strength Start: 08/29/20 16:24 Freq: Status: Active Protocol: Document 08/29/20 16:25 HH (Rec: 08/29/20 17:12 [email or web address]) Hip Strength Hip Manual Muscle Testing Right Flexion (L2) 3+ Fair+ Extension (S1) 3+ Fair+ Abduction 3+ Fair+ Adduction 4- Good- External Rotation 4- Good- Internal Rotation 4- Good- Left Flexion (L2) 4 Good Extension (S1) 4 Good Abduction 4 Good Adduction 4 Good External Rotation 4 Good Internal Rotation 4 Good Knee Strength Knee Manual Muscle Testing Right Flexion (S2) 4 Good Extension (L3) 4+ Good+ Left Flexion (S2) 4+ Good+ Extension (L3) 4+ Good+ Ankle/Foot Strength Ankle and Foot Manual Muscle Testing Right Dorsiflexion (L4) 4- Good- Plantarflexion (S1) 3+ Fair+ Inversion 3+ Fair+ Eversion (S1) 4- Good- Left Dorsiflexion (L4) 4+ Good+ Plantarflexion (S1) 4+ Good+ Inversion 4+ Good+ Eversion (S1) 4+ Good+ PT-OP-T Assessment and Plan Start: 08/29/20 16:24 Freq: Status: Active Protocol: Document 08/29/20 16:25 (Rec: 08/29/20 17:12 [email or web address]) Physical Therapy Assessment Rehab Potential Rehabilitation Potential Fair Evaluation Complexity Number of Personal Factors/Comorbidities 3 or More Number of Body Systems Impaired 3 Clinical Presentation at Evaluation Stable Impairments Impairments Activity Tolerance,Balance, Functional Activities, Functional Mobility,Gait,Pain, Posture,ROM,Sensation,Soft Tissue Mobility,Strength,Tone, Transfers Goals gait mechanics Impairment 6MWT =1265 ft, but +VE trendelenburg sign and foot slap Alf Goal (LTG) Pt will be able to complete 6MWT >1400 ft with improved trendelenburg sign and R foot slap. LTG Duration 10 weeks MMT strength Impairment pt has generalized weakness on R >L Short Term Goal (STG) pt will improve his strength up to 1/2 MMT grade to improve his gait mechanics and balance STG Duration 5 weeks Alf Goal (LTG) pt will improve his strength up to 1 MMT grade to improve his gait mechanics and balance LTG Duration 10 weeks stair climbing Impairment pt needs UE support for stair climbing Alf Goal (LTG) pt will be able to climb stairs with step over pattern but without use of handrails safely. LTG Duration 10 weeks TALAVERA Impairment pt scores 41/56 on TALAVERA Short Term Goal (STG) pt will score >45 on TALAVERA to improve his overall balance STG Duration 5 weeks Alf Goal (LTG) pt will score >48 on TALAVERA to improve his overall balance to reduce his fall risks LTG Duration 10 weeks Assessment Summary Assessment Pt is a 80 yo male here for his decreased balance and increased weakness who has GBS 15 years ago. Upon assessment , pt presents overall weakness on BLE R>L, distal > proximal . His TALAVERA = 41/56 and 6MWT = 1265ft without AD but mod R foot slap with +ve trendelenburg sign. Pt also significant decreased sensation to touch and pressure from knee down which affects his sense of balance. Based on his hx of GBS, pt will need close monitoring of his activity tolerance and exertion level to prevent symptoms exerbation. Pt will be a good candidate for skilled therapy to improve his overall strength, balance and optimal use of his energy for daily activities Physical Therapy Plan Frequency and Duration Frequency of Treatment 1x/Week Duration of Treatment 10 weeks Plan of Care Start Date 08/29/20 Plan of Care End Date 11/12/20 Therapeutic Interventions Therapeutic Interventions Balance Training,Gait Training ,Home Exercise Program,Joint Mobilizations,Manual Therapy, Neuromuscular Re-education, Patient/Caregiver Education, Self-Care/Home Management, Sensory Integration,Soft Tissue Mobilization,Taping, Therapeutic Activities, Therapeutic Exercises Modalities Cold Pack/Ice Massage Next Visit Focus/Plan Next Note Type Treatment Note Next Visit Plan low-mod intensity focused therex bike- stepper ankle strengthening OKC SL leg press 15-20 reps balance training (SL, uneven surface)
--- NOTE | 2020-08-29 17:13 | PT.OPPOC ---
Physical, Occupational & Speech Therapy At [facility] Current Diagnoses Other specified polyneuropathies (08/29/20) Ataxia, unspecified (08/29/20) Visit Care Team Role Provider Type Amandeep Olson MD Primary Care Provider Physician Specialty: Family Practice Address: [address] [place], [address] Email: [email or web address] Deep Dominguez MD Attending Provider Non-Staff Referring Provider Specialty: Neurology Address: [address] [place], [address] Email: Plan Of Care PT-OP-T Assessment and Plan Start: 08/29/20 16:24 Freq: Status: Active Protocol: Document 08/29/20 16:25 (Rec: 08/29/20 17:12 [email or web address]) Physical Therapy Assessment Rehab Potential Rehabilitation Potential Fair Evaluation Complexity Number of Personal Factors/Comorbidities 3 or More Number of Body Systems Impaired 3 Clinical Presentation at Evaluation Stable Impairments Impairments Activity Tolerance,Balance, Functional Activities, Functional Mobility,Gait,Pain, Posture,ROM,Sensation,Soft Tissue Mobility,Strength,Tone, Transfers Goals gait mechanics Impairment 6MWT =1265 ft, but +VE trendelenburg sign and foot slap Penitentiary Goal (LTG) Pt will be able to complete 6MWT >1400 ft with improved trendelenburg sign and R foot slap. LTG Duration 10 weeks MMT strength Impairment pt has generalized weakness on R >L Short Term Goal (STG) pt will improve his strength up to 1/2 MMT grade to improve his gait mechanics and balance STG Duration 5 weeks Surgical Dressing Maker Goal (LTG) pt will improve his strength up to 1 MMT grade to improve his gait mechanics and balance LTG Duration 10 weeks stair climbing Impairment pt needs UE support for stair climbing Surgical Dressing Maker Goal (LTG) pt will be able to climb stairs with step over pattern but without use of handrails safely. LTG Duration 10 weeks TALAVERA Impairment pt scores 41/56 on TALAVERA Short Term Goal (STG) pt will score >45 on TALAVERA to improve his overall balance STG Duration 5 weeks Surgical Dressing Maker Goal (LTG) pt will score >48 on TALAVERA to improve his overall balance to reduce his fall risks LTG Duration 10 weeks Assessment Summary Assessment Pt is a 80 yo male here for his decreased balance and increased weakness who has GBS 15 years ago. Upon assessment , pt presents overall weakness on BLE R>L, distal > proximal . His TALAVERA = 41/56 and 6MWT = 1265ft without AD but mod R foot slap with +ve trendelenburg sign. Pt also significant decreased sensation to touch and pressure from knee down which affects his sense of balance. Based on his hx of GBS, pt will need close monitoring of his activity tolerance and exertion level to prevent symptoms exerbation. Pt will be a good candidate for skilled therapy to improve his overall strength, balance and optimal use of his energy for daily activities Physical Therapy Plan Frequency and Duration Frequency of Treatment 1x/Week Duration of Treatment 10 weeks Plan of Care Start Date 08/29/20 Plan of Care End Date 11/12/20 Therapeutic Interventions Therapeutic Interventions Balance Training,Gait Training ,Home Exercise Program,Joint Mobilizations,Manual Therapy, Neuromuscular Re-education, Patient/Caregiver Education, Self-Care/Home Management, Sensory Integration,Soft Tissue Mobilization,Taping, Therapeutic Activities, Therapeutic Exercises Modalities Cold Pack/Ice Massage Next Visit Focus/Plan Next Note Type Treatment Note Next Visit Plan low-mod intensity focused therex bike- stepper ankle strengthening OKC SL leg press 15-20 reps balance training (SL, uneven surface) Plan of Care Dates Plan of Care Start Date 08/29/20 Plan of Care End Date 11/12/20 Electronically Signed by: Abraham Pruitt, PT 08/29/20 3360 Please Sign and Return: I have reviewed this Plan of Care and certify that the skilled therapy services above are required to meet the patient?s needs. Physician Signature Date Printed Name and Credentials Clinical Instructor Signature Printed Name and Credentials
--- NOTE | 2020-09-12 13:49 | PT.OTN ---
Current Diagnoses Other specified polyneuropathies (09/12/20) Ataxia, unspecified (09/12/20) Physical Therapy Treatment Note PT-OP-A Visit Information Start: 08/29/20 16:24 Freq: Status: Active Protocol: Document 09/12/20 12:58 HH (Rec: 09/12/20 13:49 HH [id number]) Out-Patient Physical Therapy Visit Information Visit Information Visit Type Treatment Note Visit Start Time 13:03 Visit Stop Time 13:45 Total Visit Minutes 42 Visit Number 2 Number of IMMERSION METALCLEANER Visits 0 PT-OP-B Current Condition Start: 08/29/20 16:24 Freq: Status: Active Protocol: Document 08/29/20 16:25 HH (Rec: 08/29/20 17:12 HH [email or web address]) Current Condition History of Current Condition Onset Date 15 years ago Current Complaints ataxic gait, decreased in balance, post GBS 15 years ago History of Current Condition Pt is a80 yo male here to improve his balance and LE strength. Per EMR, pt has a complex PMH which includes ischemic cardiomyopathy with CAD and placement of strents. 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 In addition, pt reports he started feeling the same for his LLE since 1.5 year ago but he has been doing exercises to slow his progression but it didnt help much as he stated. It has been going on long enough and getting worse that he is concerned. It is not associated with any other neuropathic symptoms such as in his fingers or toes. Pt has been seeing Dr. Olson for follow ups with his medical conditions. 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 Treatment Goals Patient/Caregiver Goals 1. to improve his overall balance and reduce his fall risks 2. to have a home exercise program to slow down his GBS progression. Current Functional Impairments (Reported) Functional Limitations- Other pt stated he has been falling once a month and mostly d/t tripping while walking. Personal Factors Other Personal Factors That May Effect see H&P Therapy/Recovery PT-OP-C Subjective Start: 08/29/20 16:24 Freq: Status: Active Protocol: Document 09/12/20 12:58 HH (Rec: 09/12/20 13:49 [email or web address]) OP-PT Subjective Patient Comments Patient Comments IM doing pretty good and i didnt get tired from last time . PT-OP-D Balance Start: 08/29/20 16:24 Freq: Status: Active Protocol: Document 08/29/20 16:25 (Rec: 08/29/20 17:12 [email or web address]) Balance Tests Single Limb Standing Single Limb- Right 1 Single Limb- Left 3 Talavera Balance Assessment Evaluation Sitting to Standing Ability Independent w/Hands Unsupported Stance Safely- 2 minutes Sitting Unsupported, Feet on Floor Safely- 2 minutes Standing to Sitting Ability Safely, Minimal Hand Use Transfer Ability Safely, Hand Use Unsupported Stance- Eyes Closed Safely, 10 seconds Unsupported Stance- Eyes Open Supervision to maintain Reaching Forward Standing Safely, 5 inches Pick- Up Object From Floor Supervision Look Behind Shoulder - Standing Shifts Weight Unilateral Turning 360 Degrees Turns slowly, but safely Unsupported Stance, Alternating Feet on (I)- 8 Steps in > 20 secs Stair Unsupported Tandem Stance Assist to Step-15 seconds Unilateral Leg Stance Lifts Leg/Unable to Hold Total Score Talavera Total Score (out of 56 points) 41 Talavera Impairment Rating 20 to 39% Impaired (Score 34- 44) PT-OP-E Functional Tests Start: 08/29/20 16:24 Freq: Status: Active Protocol: Document 08/29/20 16:25 (Rec: 08/29/20 17:12 [email or web address]) Functional Tests 6 Minute Walk Test Distance 1265 Device Used none Comments +ve trendelenburg sign on R, R foot slap, no breaks taken PT-OP-G Mobility & Gait Start: 08/29/20 16:24 Freq: Status: Active Protocol: Document 08/29/20 16:25 (Rec: 08/29/20 17:12 [email or web address]) OP Gait Assessment Gait Deviations General Gait Pattern Antalgic,Ataxic,Decreased Stride Length,Decreased Feet Clearance,Wide Based Gait Factors Limiting Gait Function Factors Limiting Gait Function Abnormal Tonal Influences, Decreased Activity Tolerance, Decreased Strength,Poor Balance Comments Gait Comments Pt amb with a R foot slap and decreased stance phase on R, along with +ve trendelenburg sign. PT-OP-H Neuro Start: 08/29/20 16:24 Freq: Status: Active Protocol: Document 08/29/20 16:25 HH (Rec: 08/29/20 17:12 HH [email or web address]) Sensation Evaluation Gross Sensation Gross Sensation Left LE Impaired,Right LE Impaired Sensation Description Numbness Comments Summary Comments decreased sensation to touch and pressure with numbness from knee down bilaterally Deep Tendon Reflex & Clonus Assessment Deep Tendon Reflex Bilateral Achilles Deep Tendon Reflex 1+ Diminished Right Patellar Deep Tendon Reflex 2+ Normal Left Patellar Deep Tendon Reflex 0 Absent PT-OP-J Posture/Palpation/Skin Start: 08/29/20 16:24 Freq: Status: Active Protocol: Document 08/29/20 16:25 HH (Rec: 08/29/20 17:12 HH [email or web address]) Posture Evaluation Position Standing Evaluation View Anterior Comments Posture Comments WBOS in static stance PT-OP-M Strength Start: 08/29/20 16:24 Freq: Status: Active Protocol: Document 08/29/20 16:25 HH (Rec: 08/29/20 17:12 [email or web address]) Hip Strength Hip Manual Muscle Testing Right Flexion (L2) 3+ Fair+ Extension (S1) 3+ Fair+ Abduction 3+ Fair+ Adduction 4- Good- External Rotation 4- Good- Internal Rotation 4- Good- Left Flexion (L2) 4 Good Extension (S1) 4 Good Abduction 4 Good Adduction 4 Good External Rotation 4 Good Internal Rotation 4 Good Knee Strength Knee Manual Muscle Testing Right Flexion (S2) 4 Good Extension (L3) 4+ Good+ Left Flexion (S2) 4+ Good+ Extension (L3) 4+ Good+ Ankle/Foot Strength Ankle and Foot Manual Muscle Testing Right Dorsiflexion (L4) 4- Good- Plantarflexion (S1) 3+ Fair+ Inversion 3+ Fair+ Eversion (S1) 4- Good- Left Dorsiflexion (L4) 4+ Good+ Plantarflexion (S1) 4+ Good+ Inversion 4+ Good+ Eversion (S1) 4+ Good+ PT-OP-Q Treatments Start: 08/29/20 16:24 Freq: Status: Active Protocol: Document 09/12/20 12:58 HH (Rec: 09/12/20 13:49 HH [id number]) Cardio Equipment Recumbent Stepper (Sci-Fit) Duration (Minutes) 6 Resistance 3.0 Therapeutic Exercises Sitting Exercises ankle DF/ PF Resistance level 1 for DF, level 2 for PF Reps/Minutes 8 x 2 Comments for HEP Standing Exercises hip ext Side bilateral Reps/Minutes 2 mins Comments for HEP, cues on not using momentum calf raises Comments unsuccessful d/t weakness ankle board Standing Exercise Name sagittal and lateral roll Side bilateral Equipment Used within grab bars Comments difficulty doing DF and PF marching in place Standing Exercise Name small marches Side bilateral Equipment Used next to grab bar Comments with 1 UE support PT-OP-T Assessment and Plan Start: 08/29/20 16:24 Freq: Status: Active Protocol: Document 09/12/20 12:58 HH (Rec: 09/12/20 13:49 HH [id number]) Physical Therapy Assessment Goals gait mechanics Impairment 6MWT =1265 ft, but +VE trendelenburg sign and foot slap Drag Out Man Goal (LTG) Pt will be able to complete 6MWT >1400 ft with improved trendelenburg sign and R foot slap. LTG Duration 10 weeks MMT strength Impairment pt has generalized weakness on R >L Short Term Goal (STG) pt will improve his strength up to 1/2 MMT grade to improve his gait mechanics and balance STG Duration 5 weeks Drag Out Man Goal (LTG) pt will improve his strength up to 1 MMT grade to improve his gait mechanics and balance LTG Duration 10 weeks stair climbing Impairment pt needs UE support for stair climbing Drag Out Man Goal (LTG) pt will be able to climb stairs with step over pattern but without use of handrails safely. LTG Duration 10 weeks TALAVERA Impairment pt scores 41/56 on TALAVERA Short Term Goal (STG) pt will score >45 on TALAVERA to improve his overall balance STG Duration 5 weeks Drag Out Man Goal (LTG) pt will score >48 on TALAVERA to improve his overall balance to reduce his fall risks LTG Duration 10 weeks Assessment Summary Assessment introduced isolated [place] ankle DF/PF strengthening therex, marching in place and ankle board and hip ext/ abd. Noticed pt has significant ankle weakness R worse than L. Educated pt on monitoring his fatigue level. Physical Therapy Plan Frequency and Duration Frequency of Treatment 1x/Week Duration of Treatment 10 weeks Plan of Care Start Date 08/29/20 Plan of Care End Date 11/12/20 Next Visit Focus/Plan Next Note Type Treatment Note Next Visit Plan low-mod intensity focused therex bike- stepper ankle strengthening [place] SL leg press 15-20 reps balance training (SL, uneven surface)
--- NOTE | 2020-09-19 16:37 | PT.OTN ---
Current Diagnoses Other specified polyneuropathies (09/19/20) Ataxia, unspecified (09/19/20) Physical Therapy Treatment Note PT-OP-A Visit Information Start: 08/29/20 16:24 Freq: Status: Active Protocol: Document 09/19/20 13:01 (Rec: 09/19/20 13:50 [id number]) Out-Patient Physical Therapy Visit Information Visit Information Visit Type Treatment Note Visit Start Time 13:05 Visit Stop Time 13:46 Total Visit Minutes 41 Visit Number 3 Number of FIELD ORGANIZER Visits 0 PT-OP-B Current Condition Start: 08/29/20 16:24 Freq: Status: Active Protocol: Document 08/29/20 16:25 HH (Rec: 08/29/20 17:12 [email or web address]) Current Condition History of Current Condition Onset Date 15 years ago Current Complaints ataxic gait, decreased in balance, post GBS 15 years ago History of Current Condition Pt is a80 yo male here to improve his balance and LE strength. Per EMR, pt has a complex PMH which includes ischemic cardiomyopathy with CAD and placement of strents. 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 In addition, pt reports he started feeling the same for his LLE since 1.5 year ago but he has been doing exercises to slow his progression but it didnt help much as he stated. It has been going on long enough and getting worse that he is concerned. It is not associated with any other neuropathic symptoms such as in his fingers or toes. Pt has been seeing Dr. Olson for follow ups with his medical conditions. 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 Treatment Goals Patient/Caregiver Goals 1. to improve his overall balance and reduce his fall risks 2. to have a home exercise program to slow down his GBS progression. Current Functional Impairments (Reported) Functional Limitations- Other pt stated he has been falling once a month and mostly d/t tripping while walking. Personal Factors Other Personal Factors That May Effect see H&P Therapy/Recovery PT-OP-C Subjective Start: 08/29/20 16:24 Freq: Status: Active Protocol: Document 09/19/20 13:01 (Rec: 09/19/20 13:50 [id number]) OP-PT Subjective Patient Comments Patient Comments April been doing all my exercises and i did get sore here and there but not bad at all. Patient Reported Progress Improving PT-OP-D Balance Start: 08/29/20 16:24 Freq: Status: Active Protocol: Document 08/29/20 16:25 (Rec: 08/29/20 17:12 [email or web address]) Balance Tests Single Limb Standing Single Limb- Right 1 Single Limb- Left 3 Talavera Balance Assessment Evaluation Sitting to Standing Ability Independent w/Hands Unsupported Stance Safely- 2 minutes Sitting Unsupported, Feet on Floor Safely- 2 minutes Standing to Sitting Ability Safely, Minimal Hand Use Transfer Ability Safely, Hand Use Unsupported Stance- Eyes Closed Safely, 10 seconds Unsupported Stance- Eyes Open Supervision to maintain Reaching Forward Standing Safely, 5 inches Pick- Up Object From Floor Supervision Look Behind Shoulder - Standing Shifts Weight Unilateral Turning 360 Degrees Turns slowly, but safely Unsupported Stance, Alternating Feet on (I)- 8 Steps in > 20 secs Stair Unsupported Tandem Stance Assist to Step-15 seconds Unilateral Leg Stance Lifts Leg/Unable to Hold Total Score Talavera Total Score (out of 56 points) 41 Talavera Impairment Rating 20 to 39% Impaired (Score 34- 44) PT-OP-E Functional Tests Start: 08/29/20 16:24 Freq: Status: Active Protocol: Document 08/29/20 16:25 (Rec: 08/29/20 17:12 [email or web address]) Functional Tests 6 Minute Walk Test Distance 1265 Device Used none Comments +ve trendelenburg sign on R, R foot slap, no breaks taken PT-OP-G Mobility & Gait Start: 08/29/20 16:24 Freq: Status: Active Protocol: Document 08/29/20 16:25 (Rec: 08/29/20 17:12 [email or web address]) OP Gait Assessment Gait Deviations General Gait Pattern Antalgic,Ataxic,Decreased Stride Length,Decreased Feet Clearance,Wide Based Gait Factors Limiting Gait Function Factors Limiting Gait Function Abnormal Tonal Influences, Decreased Activity Tolerance, Decreased Strength,Poor Balance Comments Gait Comments Pt amb with a R foot slap and decreased stance phase on R, along with +ve trendelenburg sign. PT-OP-H Neuro Start: 08/29/20 16:24 Freq: Status: Active Protocol: Document 08/29/20 16:25 HH (Rec: 08/29/20 17:12 HH [email or web address]) Sensation Evaluation Gross Sensation Gross Sensation Left LE Impaired,Right LE Impaired Sensation Description Numbness Comments Summary Comments decreased sensation to touch and pressure with numbness from knee down bilaterally Deep Tendon Reflex & Clonus Assessment Deep Tendon Reflex Bilateral Achilles Deep Tendon Reflex 1+ Diminished Right Patellar Deep Tendon Reflex 2+ Normal Left Patellar Deep Tendon Reflex 0 Absent PT-OP-J Posture/Palpation/Skin Start: 08/29/20 16:24 Freq: Status: Active Protocol: Document 08/29/20 16:25 HH (Rec: 08/29/20 17:12 HH [email or web address]) Posture Evaluation Position Standing Evaluation View Anterior Comments Posture Comments WBOS in static stance PT-OP-M Strength Start: 08/29/20 16:24 Freq: Status: Active Protocol: Document 08/29/20 16:25 HH (Rec: 08/29/20 17:12 [email or web address]) Hip Strength Hip Manual Muscle Testing Right Flexion (L2) 3+ Fair+ Extension (S1) 3+ Fair+ Abduction 3+ Fair+ Adduction 4- Good- External Rotation 4- Good- Internal Rotation 4- Good- Left Flexion (L2) 4 Good Extension (S1) 4 Good Abduction 4 Good Adduction 4 Good External Rotation 4 Good Internal Rotation 4 Good Knee Strength Knee Manual Muscle Testing Right Flexion (S2) 4 Good Extension (L3) 4+ Good+ Left Flexion (S2) 4+ Good+ Extension (L3) 4+ Good+ Ankle/Foot Strength Ankle and Foot Manual Muscle Testing Right Dorsiflexion (L4) 4- Good- Plantarflexion (S1) 3+ Fair+ Inversion 3+ Fair+ Eversion (S1) 4- Good- Left Dorsiflexion (L4) 4+ Good+ Plantarflexion (S1) 4+ Good+ Inversion 4+ Good+ Eversion (S1) 4+ Good+ PT-OP-Q Treatments Start: 08/29/20 16:24 Freq: Status: Active Protocol: Document 09/19/20 13:01 HH (Rec: 09/19/20 13:50 HH [id number]) Cardio Equipment Recumbent Stepper (Sci-Fit) Duration (Minutes) 6 Resistance 3.0 Therapeutic Exercises Sitting Exercises ankle DF/ PF Resistance level 1 for DF, level 2 for PF Reps/Minutes 8 x 2 Comments for HEP Standing Exercises hip ext Side bilateral Reps/Minutes 2 mins Comments for HEP, cues on not using momentum calf raises Comments unsuccessful d/t weakness ankle board Standing Exercise Name sagittal and lateral roll Side bilateral Equipment Used within grab bars Comments improved static balance today. marching in place Standing Exercise Name small marches Side bilateral Equipment Used next to grab bar Comments with 1 UE support Neuro Re-Education Treatment Balance Activities heel toe gait Surface ground level Equipment within //bar Reps/Duration 10 ft x 8 times. Comments occasional 1 UE support needed . static balance Surface ground level, blue foam Equipment within //bar Reps/Duration 5-8 sec per rep x 8 x 2 sets Comments with eyes closed. Excessive hip strategy noted. pt able to deann 5-8 second without UE support per rep PT-OP-T Assessment and Plan Start: 08/29/20 16:24 Freq: Status: Active Protocol: Document 09/19/20 13:01 (Rec: 09/19/20 13:50 [id number]) Physical Therapy Assessment Goals gait mechanics Impairment 6MWT =1265 ft, but +VE trendelenburg sign and foot slap Halfway Goal (LTG) Pt will be able to complete 6MWT >1400 ft with improved trendelenburg sign and R foot slap. LTG Duration 10 weeks MMT strength Impairment pt has generalized weakness on R >L Short Term Goal (STG) pt will improve his strength up to 1/2 MMT grade to improve his gait mechanics and balance STG Duration 5 weeks Halfway Goal (LTG) pt will improve his strength up to 1 MMT grade to improve his gait mechanics and balance LTG Duration 10 weeks stair climbing Impairment pt needs UE support for stair climbing Tack Cleaner Goal (LTG) pt will be able to climb stairs with step over pattern but without use of handrails safely. LTG Duration 10 weeks TALAVERA Impairment pt scores 41/56 on TALAVERA Short Term Goal (STG) pt will score >45 on TALAVERA to improve his overall balance STG Duration 5 weeks Halfway Goal (LTG) pt will score >48 on TALAVERA to improve his overall balance to reduce his fall risks LTG Duration 10 weeks Assessment Summary Assessment Pt shows improved static balance at ankle board today. Noticed pt has excessive hip strategy during static stance on blue foam (able to 5-8 sec each rep) Physical Therapy Plan Frequency and Duration Frequency of Treatment 1x/Week Duration of Treatment 10 weeks Plan of Care Start Date 08/29/20 Plan of Care End Date 11/12/20 Next Visit Focus/Plan Next Note Type Treatment Note Next Visit Plan low-mod intensity focused therex bike- stepper ankle strengthening [place] SL leg press 15-20 reps balance training (SL, uneven surface)
--- NOTE | 2020-09-26 14:56 | PT.OTN ---
Current Diagnoses Other specified polyneuropathies (09/26/20) Ataxia, unspecified (09/26/20) Physical Therapy Treatment Note PT-OP-A Visit Information Start: 08/29/20 16:24 Freq: Status: Active Protocol: Document 09/26/20 13:46 HH (Rec: 09/26/20 14:56 HH [id number]) Out-Patient Physical Therapy Visit Information Visit Information Visit Type Treatment Note Visit Start Time 13:05 Visit Stop Time 13:46 Total Visit Minutes 41 Visit Number 3 Number of FLOUR BLENDER Visits 0 PT-OP-B Current Condition Start: 08/29/20 16:24 Freq: Status: Active Protocol: Document 08/29/20 16:25 HH (Rec: 08/29/20 17:12 HH [email or web address]) Current Condition History of Current Condition Onset Date 15 years ago Current Complaints ataxic gait, decreased in balance, post GBS 15 years ago History of Current Condition Pt is a80 yo male here to improve his balance and LE strength. Per EMR, pt has a complex PMH which includes ischemic cardiomyopathy with CAD and placement of strents. 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 In addition, pt reports he started feeling the same for his LLE since 1.5 year ago but he has been doing exercises to slow his progression but it didnt help much as he stated. It has been going on long enough and getting worse that he is concerned. It is not associated with any other neuropathic symptoms such as in his fingers or toes. Pt has been seeing Dr. Oslon for follow ups with his medical conditions. 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 Treatment Goals Patient/Caregiver Goals 1. to improve his overall balance and reduce his fall risks 2. to have a home exercise program to slow down his GBS progression. Current Functional Impairments (Reported) Functional Limitations- Other pt stated he has been falling once a month and mostly d/t tripping while walking. Personal Factors Other Personal Factors That May Effect see H&P Therapy/Recovery PT-OP-C Subjective Start: 08/29/20 16:24 Freq: Status: Active Protocol: Document 09/26/20 13:46 HH (Rec: 09/26/20 14:56 [id number]) OP-PT Subjective Patient Comments Patient Comments I think i somewhat noticed i stumble less when i walk now. Patient Reported Progress Improving PT-OP-D Balance Start: 08/29/20 16:24 Freq: Status: Active Protocol: Document 08/29/20 16:25 HH (Rec: 08/29/20 17:12 [email or web address]) Balance Tests Single Limb Standing Single Limb- Right 1 Single Limb- Left 3 Talavera Balance Assessment Evaluation Sitting to Standing Ability Independent w/Hands Unsupported Stance Safely- 2 minutes Sitting Unsupported, Feet on Floor Safely- 2 minutes Standing to Sitting Ability Safely, Minimal Hand Use Transfer Ability Safely, Hand Use Unsupported Stance- Eyes Closed Safely, 10 seconds Unsupported Stance- Eyes Open Supervision to maintain Reaching Forward Standing Safely, 5 inches Pick- Up Object From Floor Supervision Look Behind Shoulder - Standing Shifts Weight Unilateral Turning 360 Degrees Turns slowly, but safely Unsupported Stance, Alternating Feet on (I)- 8 Steps in > 20 secs Stair Unsupported Tandem Stance Assist to Step-15 seconds Unilateral Leg Stance Lifts Leg/Unable to Hold Total Score Talavera Total Score (out of 56 points) 41 Talavera Impairment Rating 20 to 39% Impaired (Score 34- 44) PT-OP-E Functional Tests Start: 08/29/20 16:24 Freq: Status: Active Protocol: Document 08/29/20 16:25 (Rec: 08/29/20 17:12 [email or web address]) Functional Tests 6 Minute Walk Test Distance 1265 Device Used none Comments +ve trendelenburg sign on R, R foot slap, no breaks taken PT-OP-G Mobility & Gait Start: 08/29/20 16:24 Freq: Status: Active Protocol: Document 08/29/20 16:25 (Rec: 08/29/20 17:12 [email or web address]) OP Gait Assessment Gait Deviations General Gait Pattern Antalgic,Ataxic,Decreased Stride Length,Decreased Feet Clearance,Wide Based Gait Factors Limiting Gait Function Factors Limiting Gait Function Abnormal Tonal Influences, Decreased Activity Tolerance, Decreased Strength,Poor Balance Comments Gait Comments Pt amb with a R foot slap and decreased stance phase on R, along with +ve trendelenburg sign. PT-OP-H Neuro Start: 08/29/20 16:24 Freq: Status: Active Protocol: Document 08/29/20 16:25 HH (Rec: 08/29/20 17:12 HH [email or web address]) Sensation Evaluation Gross Sensation Gross Sensation Left LE Impaired,Right LE Impaired Sensation Description Numbness Comments Summary Comments decreased sensation to touch and pressure with numbness from knee down bilaterally Deep Tendon Reflex & Clonus Assessment Deep Tendon Reflex Bilateral Achilles Deep Tendon Reflex 1+ Diminished Right Patellar Deep Tendon Reflex 2+ Normal Left Patellar Deep Tendon Reflex 0 Absent PT-OP-J Posture/Palpation/Skin Start: 08/29/20 16:24 Freq: Status: Active Protocol: Document 08/29/20 16:25 HH (Rec: 08/29/20 17:12 HH [email or web address]) Posture Evaluation Position Standing Evaluation View Anterior Comments Posture Comments WBOS in static stance PT-OP-M Strength Start: 08/29/20 16:24 Freq: Status: Active Protocol: Document 08/29/20 16:25 HH (Rec: 08/29/20 17:12 HH [email or web address]) Hip Strength Hip Manual Muscle Testing Right Flexion (L2) 3+ Fair+ Extension (S1) 3+ Fair+ Abduction 3+ Fair+ Adduction 4- Good- External Rotation 4- Good- Internal Rotation 4- Good- Left Flexion (L2) 4 Good Extension (S1) 4 Good Abduction 4 Good Adduction 4 Good External Rotation 4 Good Internal Rotation 4 Good Knee Strength Knee Manual Muscle Testing Right Flexion (S2) 4 Good Extension (L3) 4+ Good+ Left Flexion (S2) 4+ Good+ Extension (L3) 4+ Good+ Ankle/Foot Strength Ankle and Foot Manual Muscle Testing Right Dorsiflexion (L4) 4- Good- Plantarflexion (S1) 3+ Fair+ Inversion 3+ Fair+ Eversion (S1) 4- Good- Left Dorsiflexion (L4) 4+ Good+ Plantarflexion (S1) 4+ Good+ Inversion 4+ Good+ Eversion (S1) 4+ Good+ PT-OP-Q Treatments Start: 08/29/20 16:24 Freq: Status: Active Protocol: Document 09/26/20 13:46 HH (Rec: 09/26/20 14:56 HH [id number]) Cardio Equipment Recumbent Stepper (Sci-Fit) Duration (Minutes) 6 Resistance 3.0 Gym Equipment Shuttle Recovery Uni squat Resistance #50 R, #67 L Shuttle Recovery Platform Stable Therapeutic Exercises Sitting Exercises ankle DF/ PF Resistance level 1 for DF, level 2 for PF Reps/Minutes 8 x 2 Comments for HEP Standing Exercises step up Equipment Used 4 step Reps/Minutes 8 x2 Comments needed UE support for balance on rails sit to stand Standing Exercise Name reg chair height without UE support Side bilateral Reps/Minutes 5 x2 Comments cues to use trunk momentum ankle board Standing Exercise Name sagittal and lateral roll Side bilateral Equipment Used within grab bars Comments improved static balance today. marching in place Standing Exercise Name small marches Side bilateral Equipment Used next to grab bar Comments with 1 UE support Neuro Re-Education Treatment Balance Activities heel toe gait Surface ground level Equipment within //bar Reps/Duration 10 ft x 8 times. Comments occasional 1 UE support needed . static balance Surface ground level, blue foam Equipment within //bar Reps/Duration 17 sec per rep x 8 x 2 sets Comments with eyes closed. Excessive hip strategy noted. pt able to deann 17 second without UE support per rep PT-OP-T Assessment and Plan Start: 08/29/20 16:24 Freq: Status: Active Protocol: Document 09/26/20 13:46 (Rec: 09/26/20 14:56 [id number]) Physical Therapy Assessment Goals gait mechanics Impairment 6MWT =1265 ft, but +VE trendelenburg sign and foot slap Manager Chinese Goal (LTG) Pt will be able to complete 6MWT >1400 ft with improved trendelenburg sign and R foot slap. LTG Duration 10 weeks MMT strength Impairment pt has generalized weakness on R >L Short Term Goal (STG) pt will improve his strength up to 1/2 MMT grade to improve his gait mechanics and balance STG Duration 5 weeks Alf Goal (LTG) pt will improve his strength up to 1 MMT grade to improve his gait mechanics and balance LTG Duration 10 weeks stair climbing Impairment pt needs UE support for stair climbing Short Term Goal (STG) pt uses L handrail Alf Goal (LTG) pt will be able to climb stairs with step over pattern but without use of handrails safely. LTG Duration 10 weeks TALAVERA Impairment pt scores 41/56 on TALAVERA Short Term Goal (STG) pt will score >45 on TALAVERA to improve his overall balance STG Duration 5 weeks Alf Goal (LTG) pt will score >48 on TALAVERA to improve his overall balance to reduce his fall risks LTG Duration 10 weeks Assessment Summary Assessment Pt has shown improvements with static balance with ankle board and standing on blue foam with EC. Pt also has improved heel toe gait. Educated pt to use trunk flexion for momentum during STS Physical Therapy Plan Frequency and Duration Frequency of Treatment 1x/Week Duration of Treatment 10 weeks Plan of Care Start Date 08/29/20 Plan of Care End Date 11/12/20 Next Visit Focus/Plan Next Note Type Treatment Note Next Visit Plan low-mod intensity focused therex bike- stepper ankle strengthening [facility] SL leg press 15-20 reps balance training (SL, uneven surface) step up balance chase
--- NOTE | 2020-10-03 14:36 | PT.OTN ---
Current Diagnoses Other specified polyneuropathies (10/03/20) Ataxia, unspecified (10/03/20) Physical Therapy Treatment Note PT-OP-A Visit Information Start: 08/29/20 16:24 Freq: Status: Active Protocol: Document 10/03/20 13:48 HH (Rec: 10/03/20 14:36 HH [id number]) Out-Patient Physical Therapy Visit Information Visit Information Visit Type Treatment Note Visit Start Time 13:48 Visit Stop Time 14:30 Total Visit Minutes 42 Visit Number 4 Number of ELECTRICAL CONTROL ASSEMBLER Visits 0 PT-OP-B Current Condition Start: 08/29/20 16:24 Freq: Status: Active Protocol: Document 08/29/20 16:25 HH (Rec: 08/29/20 17:12 HH [email or web address]) Current Condition History of Current Condition Onset Date 15 years ago Current Complaints ataxic gait, decreased in balance, post GBS 15 years ago History of Current Condition Pt is a80 yo male here to improve his balance and LE strength. Per EMR, pt has a complex PMH which includes ischemic cardiomyopathy with CAD and placement of strents. 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 He also had Guilain-[place] about 15 years ago who has decreased muscle mass and muscle strength on R calf > R thigh, along with numbness and burning sensation from his knee down. In addition, pt reports he started feeling the same for his LLE since 1.5 year ago but he has been doing exercises to slow his progression but it didnt help much as he stated. It has been going on long enough and getting worse that he is concerned. It is not associated with any other neuropathic symptoms such as in his fingers or toes. Pt has been seeing Dr. Olson for follow ups with his medical conditions. 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 Treatment Goals Patient/Caregiver Goals 1. to improve his overall balance and reduce his fall risks 2. to have a home exercise program to slow down his GBS progression. Current Functional Impairments (Reported) Functional Limitations- Other pt stated he has been falling once a month and mostly d/t tripping while walking. Personal Factors Other Personal Factors That May Effect see H&P Therapy/Recovery PT-OP-C Subjective Start: 08/29/20 16:24 Freq: Status: Active Protocol: Document 09/26/20 13:46 HH (Rec: 09/26/20 14:56 [id number]) OP-PT Subjective Patient Comments Patient Comments I think i somewhat noticed i stumble less when i walk now. Patient Reported Progress Improving PT-OP-D Balance Start: 08/29/20 16:24 Freq: Status: Active Protocol: Document 08/29/20 16:25 HH (Rec: 08/29/20 17:12 [email or web address]) Balance Tests Single Limb Standing Single Limb- Right 1 Single Limb- Left 3 Talavera Balance Assessment Evaluation Sitting to Standing Ability Independent w/Hands Unsupported Stance Safely- 2 minutes Sitting Unsupported, Feet on Floor Safely- 2 minutes Standing to Sitting Ability Safely, Minimal Hand Use Transfer Ability Safely, Hand Use Unsupported Stance- Eyes Closed Safely, 10 seconds Unsupported Stance- Eyes Open Supervision to maintain Reaching Forward Standing Safely, 5 inches Pick- Up Object From Floor Supervision Look Behind Shoulder - Standing Shifts Weight Unilateral Turning 360 Degrees Turns slowly, but safely Unsupported Stance, Alternating Feet on (I)- 8 Steps in > 20 secs Stair Unsupported Tandem Stance Assist to Step-15 seconds Unilateral Leg Stance Lifts Leg/Unable to Hold Total Score Talavera Total Score (out of 56 points) 41 Talavera Impairment Rating 20 to 39% Impaired (Score 34- 44) PT-OP-E Functional Tests Start: 08/29/20 16:24 Freq: Status: Active Protocol: Document 08/29/20 16:25 (Rec: 08/29/20 17:12 [email or web address]) Functional Tests 6 Minute Walk Test Distance 1265 Device Used none Comments +ve trendelenburg sign on R, R foot slap, no breaks taken PT-OP-G Mobility & Gait Start: 08/29/20 16:24 Freq: Status: Active Protocol: Document 08/29/20 16:25 (Rec: 08/29/20 17:12 [email or web address]) OP Gait Assessment Gait Deviations General Gait Pattern Antalgic,Ataxic,Decreased Stride Length,Decreased Feet Clearance,Wide Based Gait Factors Limiting Gait Function Factors Limiting Gait Function Abnormal Tonal Influences, Decreased Activity Tolerance, Decreased Strength,Poor Balance Comments Gait Comments Pt amb with a R foot slap and decreased stance phase on R, along with +ve trendelenburg sign. PT-OP-H Neuro Start: 08/29/20 16:24 Freq: Status: Active Protocol: Document 08/29/20 16:25 HH (Rec: 08/29/20 17:12 HH [email or web address]) Sensation Evaluation Gross Sensation Gross Sensation Left LE Impaired,Right LE Impaired Sensation Description Numbness Comments Summary Comments decreased sensation to touch and pressure with numbness from knee down bilaterally Deep Tendon Reflex & Clonus Assessment Deep Tendon Reflex Bilateral Achilles Deep Tendon Reflex 1+ Diminished Right Patellar Deep Tendon Reflex 2+ Normal Left Patellar Deep Tendon Reflex 0 Absent PT-OP-J Posture/Palpation/Skin Start: 08/29/20 16:24 Freq: Status: Active Protocol: Document 08/29/20 16:25 HH (Rec: 08/29/20 17:12 HH [email or web address]) Posture Evaluation Position Standing Evaluation View Anterior Comments Posture Comments WBOS in static stance PT-OP-M Strength Start: 08/29/20 16:24 Freq: Status: Active Protocol: Document 08/29/20 16:25 HH (Rec: 08/29/20 17:12 HH [email or web address]) Hip Strength Hip Manual Muscle Testing Right Flexion (L2) 3+ Fair+ Extension (S1) 3+ Fair+ Abduction 3+ Fair+ Adduction 4- Good- External Rotation 4- Good- Internal Rotation 4- Good- Left Flexion (L2) 4 Good Extension (S1) 4 Good Abduction 4 Good Adduction 4 Good External Rotation 4 Good Internal Rotation 4 Good Knee Strength Knee Manual Muscle Testing Right Flexion (S2) 4 Good Extension (L3) 4+ Good+ Left Flexion (S2) 4+ Good+ Extension (L3) 4+ Good+ Ankle/Foot Strength Ankle and Foot Manual Muscle Testing Right Dorsiflexion (L4) 4- Good- Plantarflexion (S1) 3+ Fair+ Inversion 3+ Fair+ Eversion (S1) 4- Good- Left Dorsiflexion (L4) 4+ Good+ Plantarflexion (S1) 4+ Good+ Inversion 4+ Good+ Eversion (S1) 4+ Good+ PT-OP-Q Treatments Start: 08/29/20 16:24 Freq: Status: Active Protocol: Document 10/03/20 13:48 HH (Rec: 10/03/20 14:36 HH [id number]) Cardio Equipment Recumbent Stepper (Sci-Fit) Duration (Minutes) 6 Resistance 3.0 Gym Equipment Shuttle Recovery B heel raise Resistance 12 lbs Shuttle Recovery Platform Stable Reps/Time 15 x2 Uni squat Resistance #50 R, #67 L Shuttle Recovery Platform Stable Reps/Time 10 x2 Therapeutic Exercises Standing Exercises step up Equipment Used 4 step x3 then 6 x 2 Reps/Minutes 20 x5 Comments needed UE support for balance on rails sit to stand Standing Exercise Name reg chair height without UE support Side bilateral Reps/Minutes 5 x2 Comments cues to use trunk momentum ankle board Standing Exercise Name sagittal and lateral roll Side bilateral Equipment Used within grab bars Comments improved static balance today. marching in place Standing Exercise Name small marches Side bilateral Equipment Used next to grab bar Comments with 1 UE support Neuro Re-Education Treatment Balance Activities heel toe gait Surface ground level Equipment within //bar Reps/Duration 10 ft x 8 times. Comments occasional 1 UE support needed . static balance Surface blue foam Equipment within //bar Reps/Duration 17 sec per rep x 8 x 2 sets Comments with eyes closed. Excessive hip strategy noted. pt able to deann 15-28 second without UE support per rep PT-OP-T Assessment and Plan Start: 08/29/20 16:24 Freq: Status: Active Protocol: Document 10/03/20 13:48 HH (Rec: 10/03/20 14:36 HH [id number]) Physical Therapy Assessment Goals gait mechanics Impairment 6MWT =1265 ft, but +VE trendelenburg sign and foot slap [facility] Goal (LTG) Pt will be able to complete 6MWT >1400 ft with improved trendelenburg sign and R foot slap. LTG Duration 10 weeks MMT strength Impairment pt has generalized weakness on R >L Short Term Goal (STG) pt will improve his strength up to 1/2 MMT grade to improve his gait mechanics and balance STG Duration 5 weeks Veneer Stock Layer Goal (LTG) pt will improve his strength up to 1 MMT grade to improve his gait mechanics and balance LTG Duration 10 weeks stair climbing Impairment pt needs UE support for stair climbing Short Term Goal (STG) pt uses L handrail [facility] Goal (LTG) pt will be able to climb stairs with step over pattern but without use of handrails safely. LTG Duration 10 weeks TALAVERA Impairment pt scores 41/56 on TALAVERA Short Term Goal (STG) pt will score >45 on TALAVERA to improve his overall balance STG Duration 5 weeks Veneer Stock Layer Goal (LTG) pt will score >48 on TALAVERA to improve his overall balance to reduce his fall risks LTG Duration 10 weeks Assessment Summary Assessment Pt cont to show improvements on ankle strategy for all balance therex. He was able to maintain balance on blue foam with EC up to 28 secs today. Physical Therapy Plan Frequency and Duration Frequency of Treatment 1x/Week Duration of Treatment 10 weeks Plan of Care Start Date 08/29/20 Plan of Care End Date 11/12/20 Next Visit Focus/Plan Next Note Type Treatment Note Next Visit Plan low-mod intensity focused therex bike- stepper ankle strengthening [facility] SL leg press 15-20 reps balance training (SL, uneven surface) step up balance chase
--- NOTE | 2020-10-10 14:49 | PT.OTN ---
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, unspecified (10/10/20) Physical Therapy Treatment Note PT-OP-A Visit Information Start: 08/29/20 16:24 Freq: Status: Active Protocol: Document 10/10/20 13:42 HH (Rec: 10/10/20 14:48 HH [id number]) Out-Patient Physical Therapy Visit Information Visit Information Visit Type Treatment Note Visit Start Time 13:47 Visit Stop Time 14:30 Total Visit Minutes 43 Visit Number 5 Number of HAY BALER Visits 0 PT-OP-B Current Condition Start: 08/29/20 16:24 Freq: Status: Active Protocol: Document 08/29/20 16:25 HH (Rec: 08/29/20 17:12 HH [email or web address]) Current Condition History of Current Condition Onset Date 15 years ago Current Complaints ataxic gait, decreased in balance, post GBS 15 years ago History of Current Condition Pt is a80 yo male here to improve his balance and LE strength. Per EMR, pt has a complex PMH which includes ischemic cardiomyopathy with CAD and placement of strents. 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 In addition, pt reports he started feeling the same for his LLE since 1.5 year ago but he has been doing exercises to slow his progression but it didnt help much as he stated. It has been going on long enough and getting worse that he is concerned. It is not associated with any other neuropathic symptoms such as in his fingers or toes. Pt has been seeing Dr. Olson for follow ups with his medical conditions. 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 Treatment Goals Patient/Caregiver Goals 1. to improve his overall balance and reduce his fall risks 2. to have a home exercise program to slow down his GBS progression. Current Functional Impairments (Reported) Functional Limitations- Other pt stated he has been falling once a month and mostly d/t tripping while walking. Personal Factors Other Personal Factors That May Effect see H&P Therapy/Recovery PT-OP-C Subjective Start: 08/29/20 16:24 Freq: Status: Active Protocol: Document 10/10/20 13:42 HH (Rec: 10/10/20 14:48 [id number]) OP-PT Subjective Patient Comments Patient Comments I got a little sore today but i dont know why. My balance seems to be better now and i am able to catch myself better now. Patient Reported Progress Improving PT-OP-D Balance Start: 08/29/20 16:24 Freq: Status: Active Protocol: Document 08/29/20 16:25 (Rec: 08/29/20 17:12 [email or web address]) Balance Tests Single Limb Standing Single Limb- Right 1 Single Limb- Left 3 Talavera Balance Assessment Evaluation Sitting to Standing Ability Independent w/Hands Unsupported Stance Safely- 2 minutes Sitting Unsupported, Feet on Floor Safely- 2 minutes Standing to Sitting Ability Safely, Minimal Hand Use Transfer Ability Safely, Hand Use Unsupported Stance- Eyes Closed Safely, 10 seconds Unsupported Stance- Eyes Open Supervision to maintain Reaching Forward Standing Safely, 5 inches Pick- Up Object From Floor Supervision Look Behind Shoulder - Standing Shifts Weight Unilateral Turning 360 Degrees Turns slowly, but safely Unsupported Stance, Alternating Feet on (I)- 8 Steps in > 20 secs Stair Unsupported Tandem Stance Assist to Step-15 seconds Unilateral Leg Stance Lifts Leg/Unable to Hold Total Score Talavera Total Score (out of 56 points) 41 Talavera Impairment Rating 20 to 39% Impaired (Score 34- 44) PT-OP-E Functional Tests Start: 08/29/20 16:24 Freq: Status: Active Protocol: Document 08/29/20 16:25 (Rec: 08/29/20 17:12 [email or web address]) Functional Tests 6 Minute Walk Test Distance 1265 Device Used none Comments +ve trendelenburg sign on R, R foot slap, no breaks taken PT-OP-G Mobility & Gait Start: 08/29/20 16:24 Freq: Status: Active Protocol: Document 08/29/20 16:25 (Rec: 08/29/20 17:12 [email or web address]) OP Gait Assessment Gait Deviations General Gait Pattern Antalgic,Ataxic,Decreased Stride Length,Decreased Feet Clearance,Wide Based Gait Factors Limiting Gait Function Factors Limiting Gait Function Abnormal Tonal Influences, Decreased Activity Tolerance, Decreased Strength,Poor Balance Comments Gait Comments Pt amb with a R foot slap and decreased stance phase on R, along with +ve trendelenburg sign. PT-OP-H Neuro Start: 08/29/20 16:24 Freq: Status: Active Protocol: Document 08/29/20 16:25 HH (Rec: 08/29/20 17:12 HH [email or web address]) Sensation Evaluation Gross Sensation Gross Sensation Left LE Impaired,Right LE Impaired Sensation Description Numbness Comments Summary Comments decreased sensation to touch and pressure with numbness from knee down bilaterally Deep Tendon Reflex & Clonus Assessment Deep Tendon Reflex Bilateral Achilles Deep Tendon Reflex 1+ Diminished Right Patellar Deep Tendon Reflex 2+ Normal Left Patellar Deep Tendon Reflex 0 Absent PT-OP-J Posture/Palpation/Skin Start: 08/29/20 16:24 Freq: Status: Active Protocol: Document 08/29/20 16:25 HH (Rec: 08/29/20 17:12 HH [email or web address]) Posture Evaluation Position Standing Evaluation View Anterior Comments Posture Comments WBOS in static stance PT-OP-M Strength Start: 08/29/20 16:24 Freq: Status: Active Protocol: Document 08/29/20 16:25 HH (Rec: 08/29/20 17:12 HH [email or web address]) Hip Strength Hip Manual Muscle Testing Right Flexion (L2) 3+ Fair+ Extension (S1) 3+ Fair+ Abduction 3+ Fair+ Adduction 4- Good- External Rotation 4- Good- Internal Rotation 4- Good- Left Flexion (L2) 4 Good Extension (S1) 4 Good Abduction 4 Good Adduction 4 Good External Rotation 4 Good Internal Rotation 4 Good Knee Strength Knee Manual Muscle Testing Right Flexion (S2) 4 Good Extension (L3) 4+ Good+ Left Flexion (S2) 4+ Good+ Extension (L3) 4+ Good+ Ankle/Foot Strength Ankle and Foot Manual Muscle Testing Right Dorsiflexion (L4) 4- Good- Plantarflexion (S1) 3+ Fair+ Inversion 3+ Fair+ Eversion (S1) 4- Good- Left Dorsiflexion (L4) 4+ Good+ Plantarflexion (S1) 4+ Good+ Inversion 4+ Good+ Eversion (S1) 4+ Good+ PT-OP-Q Treatments Start: 08/29/20 16:24 Freq: Status: Active Protocol: Document 10/10/20 13:42 HH (Rec: 10/10/20 14:48 HH [id number]) Cardio Equipment Recumbent Stepper (Sci-Fit) Duration (Minutes) 6 Resistance 3.0 Gym Equipment Shuttle Balance red Reps/Duration 6 mins Comments static first and staggerred stance after Therapeutic Exercises Standing Exercises sidestepping Side bilateral Equipment Used next to grab bar Comments without support step up Equipment Used 4 step x3 then 6 x 2 Reps/Minutes 20 x5 Comments needed UE support for balance on rails sit to stand Standing Exercise Name reg chair height without UE support Side bilateral Reps/Minutes 5 x2 Comments cues to use trunk momentum ankle board Standing Exercise Name sagittal and lateral roll Side bilateral Equipment Used within grab bars Comments improved static balance today. marching in place Standing Exercise Name small marches Side bilateral Equipment Used next to grab bar Comments with 1 UE support Neuro Re-Education Treatment Balance Activities heel toe gait Surface ground level Equipment within //bar Reps/Duration 10 ft x 8 times. Comments occasional 1 UE support needed . static balance Surface blue foam Equipment within //bar Reps/Duration 17 sec per rep x 8 x 2 sets Comments with eyes closed. Excessive hip strategy noted. pt able to deann 15-28 second without UE support per rep PT-OP-T Assessment and Plan Start: 08/29/20 16:24 Freq: Status: Active Protocol: Document 10/10/20 13:42 (Rec: 10/10/20 14:48 [id number]) Physical Therapy Assessment Goals gait mechanics Impairment 6MWT =1265 ft, but +VE trendelenburg sign and foot slap Fdc Goal (LTG) Pt will be able to complete 6MWT >1400 ft with improved trendelenburg sign and R foot slap. LTG Duration 10 weeks MMT strength Impairment pt has generalized weakness on R >L Short Term Goal (STG) pt will improve his strength up to 1/2 MMT grade to improve his gait mechanics and balance STG Duration 5 weeks Fdc Goal (LTG) pt will improve his strength up to 1 MMT grade to improve his gait mechanics and balance LTG Duration 10 weeks stair climbing Impairment pt needs UE support for stair climbing Short Term Goal (STG) pt uses L handrail Well Digger Goal (LTG) pt will be able to climb stairs with step over pattern but without use of handrails safely. LTG Duration 10 weeks TALAVERA Impairment pt scores 41/56 on TALAVERA Short Term Goal (STG) pt will score >45 on TALAVERA to improve his overall balance STG Duration 5 weeks Fdc Goal (LTG) pt will score >48 on TALAVERA to improve his overall balance to reduce his fall risks LTG Duration 10 weeks Assessment Summary Assessment Pt deann session well but his overall ankle strength and ROM have no significant improvements possibly d/t nerve damage. His balance has gotten better and He reports his weakness has not getting worse since he started PT. Educated him about importance of maintainence program. Expect to DC pt in 2 visits. Physical Therapy Plan Frequency and Duration Frequency of Treatment 1x/Week Duration of Treatment 10 weeks Plan of Care Start Date 08/29/20 Plan of Care End Date 11/12/20 Next Visit Focus/Plan Next Note Type Treatment Note Next Visit Plan low-mod intensity focused therex bike- stepper ankle strengthening OK SL leg press 15-20 reps balance training (SL, uneven surface) step up balance chase
--- NOTE | 2020-10-17 15:16 | PT.OTN ---
Current Diagnoses Other specified polyneuropathies (10/17/20) Ataxia, unspecified (10/17/20) Physical Therapy Treatment Note PT-OP-A Visit Information Start: 08/29/20 16:24 Freq: Status: Active Protocol: Document 10/17/20 14:33 HH (Rec: 10/17/20 15:16 [id number]) Out-Patient Physical Therapy Visit Information Visit Information Visit Type Treatment Note Visit Start Time 14:32 Visit Stop Time 15:15 Total Visit Minutes 43 Visit Number 6 Number of MORTGAGE PROFESSIONAL Visits 0 PT-OP-B Current Condition Start: 08/29/20 16:24 Freq: Status: Active Protocol: Document 08/29/20 16:25 HH (Rec: 08/29/20 17:12 HH [email or web address]) Current Condition History of Current Condition Onset Date 15 years ago Current Complaints ataxic gait, decreased in balance, post GBS 15 years ago History of Current Condition Pt is a80 yo male here to improve his balance and LE strength. Per EMR, pt has a complex PMH which includes ischemic cardiomyopathy with CAD and placement of strents. 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 In addition, pt reports he started feeling the same for his LLE since 1.5 year ago but he has been doing exercises to slow his progression but it didnt help much as he stated. It has been going on long enough and getting worse that he is concerned. It is not associated with any other neuropathic symptoms such as in his fingers or toes. Pt has been seeing Dr. Olson for follow ups with his medical conditions. 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 Treatment Goals Patient/Caregiver Goals 1. to improve his overall balance and reduce his fall risks 2. to have a home exercise program to slow down his GBS progression. Current Functional Impairments (Reported) Functional Limitations- Other pt stated he has been falling once a month and mostly d/t tripping while walking. Personal Factors Other Personal Factors That May Effect see H&P Therapy/Recovery PT-OP-C Subjective Start: 08/29/20 16:24 Freq: Status: Active Protocol: Document 10/17/20 14:33 HH (Rec: 10/17/20 15:16 [id number]) OP-PT Subjective Patient Comments Patient Comments im going to have a spinal tap tomorrow for possible infusion in the future. Im doing okay and no changes noted. I havent getting worse or anything Patient Reported Progress Same PT-OP-D Balance Start: 08/29/20 16:24 Freq: Status: Active Protocol: Document 08/29/20 16:25 HH (Rec: 08/29/20 17:12 [email or web address]) Balance Tests Single Limb Standing Single Limb- Right 1 Single Limb- Left 3 Talavera Balance Assessment Evaluation Sitting to Standing Ability Independent w/Hands Unsupported Stance Safely- 2 minutes Sitting Unsupported, Feet on Floor Safely- 2 minutes Standing to Sitting Ability Safely, Minimal Hand Use Transfer Ability Safely, Hand Use Unsupported Stance- Eyes Closed Safely, 10 seconds Unsupported Stance- Eyes Open Supervision to maintain Reaching Forward Standing Safely, 5 inches Pick- Up Object From Floor Supervision Look Behind Shoulder - Standing Shifts Weight Unilateral Turning 360 Degrees Turns slowly, but safely Unsupported Stance, Alternating Feet on (I)- 8 Steps in > 20 secs Stair Unsupported Tandem Stance Assist to Step-15 seconds Unilateral Leg Stance Lifts Leg/Unable to Hold Total Score Talavera Total Score (out of 56 points) 41 Talavera Impairment Rating 20 to 39% Impaired (Score 34- 44) PT-OP-E Functional Tests Start: 08/29/20 16:24 Freq: Status: Active Protocol: Document 08/29/20 16:25 (Rec: 08/29/20 17:12 [email or web address]) Functional Tests 6 Minute Walk Test Distance 1265 Device Used none Comments +ve trendelenburg sign on R, R foot slap, no breaks taken PT-OP-G Mobility & Gait Start: 08/29/20 16:24 Freq: Status: Active Protocol: Document 08/29/20 16:25 (Rec: 08/29/20 17:12 [email or web address]) OP Gait Assessment Gait Deviations General Gait Pattern Antalgic,Ataxic,Decreased Stride Length,Decreased Feet Clearance,Wide Based Gait Factors Limiting Gait Function Factors Limiting Gait Function Abnormal Tonal Influences, Decreased Activity Tolerance, Decreased Strength,Poor Balance Comments Gait Comments Pt amb with a R foot slap and decreased stance phase on R, along with +ve trendelenburg sign. PT-OP-H Neuro Start: 08/29/20 16:24 Freq: Status: Active Protocol: Document 08/29/20 16:25 HH (Rec: 08/29/20 17:12 HH [email or web address]) Sensation Evaluation Gross Sensation Gross Sensation Left LE Impaired,Right LE Impaired Sensation Description Numbness Comments Summary Comments decreased sensation to touch and pressure with numbness from knee down bilaterally Deep Tendon Reflex & Clonus Assessment Deep Tendon Reflex Bilateral Achilles Deep Tendon Reflex 1+ Diminished Right Patellar Deep Tendon Reflex 2+ Normal Left Patellar Deep Tendon Reflex 0 Absent PT-OP-J Posture/Palpation/Skin Start: 08/29/20 16:24 Freq: Status: Active Protocol: Document 08/29/20 16:25 HH (Rec: 08/29/20 17:12 HH [email or web address]) Posture Evaluation Position Standing Evaluation View Anterior Comments Posture Comments WBOS in static stance PT-OP-M Strength Start: 08/29/20 16:24 Freq: Status: Active Protocol: Document 08/29/20 16:25 HH (Rec: 08/29/20 17:12 HH [email or web address]) Hip Strength Hip Manual Muscle Testing Right Flexion (L2) 3+ Fair+ Extension (S1) 3+ Fair+ Abduction 3+ Fair+ Adduction 4- Good- External Rotation 4- Good- Internal Rotation 4- Good- Left Flexion (L2) 4 Good Extension (S1) 4 Good Abduction 4 Good Adduction 4 Good External Rotation 4 Good Internal Rotation 4 Good Knee Strength Knee Manual Muscle Testing Right Flexion (S2) 4 Good Extension (L3) 4+ Good+ Left Flexion (S2) 4+ Good+ Extension (L3) 4+ Good+ Ankle/Foot Strength Ankle and Foot Manual Muscle Testing Right Dorsiflexion (L4) 4- Good- Plantarflexion (S1) 3+ Fair+ Inversion 3+ Fair+ Eversion (S1) 4- Good- Left Dorsiflexion (L4) 4+ Good+ Plantarflexion (S1) 4+ Good+ Inversion 4+ Good+ Eversion (S1) 4+ Good+ PT-OP-Q Treatments Start: 08/29/20 16:24 Freq: Status: Active Protocol: Document 10/17/20 14:33 HH (Rec: 10/17/20 15:16 HH [id number]) Cardio Equipment Bicycle (Upright) Duration (Minutes) 5 Resistance 5 Gym Equipment Shuttle Recovery B heel raise Resistance 12 lbs Shuttle Recovery Platform Stable Reps/Time 15 x2 Uni squat Resistance #50 R, #67 L Shuttle Recovery Platform Stable Reps/Time 10 x3, cues on not hyperextending kness Therapeutic Exercises Standing Exercises step up Equipment Used 4 step x3 then 6 x 2 Reps/Minutes 20 x5 Comments needed UE support for balance on rails ankle board Standing Exercise Name sagittal and lateral roll Side bilateral Equipment Used within grab bars Comments improved static balance today. marching in place Standing Exercise Name small marches Side bilateral Equipment Used next to grab bar Comments with 1 UE support Neuro Re-Education Treatment Balance Activities stagger stance Details stagger stance Surface blue and black foam Equipment within //bar Comments pt has more difficulty with Rleg has leading foot. static balance Surface blue foam Equipment within //bar Reps/Duration 17 sec per rep x 8 x 2 sets Comments with eyes closed. Excessive hip strategy noted. pt able to deann 15-28 second without UE support per rep PT-OP-T Assessment and Plan Start: 08/29/20 16:24 Freq: Status: Active Protocol: Document 10/17/20 14:33 (Rec: 10/17/20 15:16 [id number]) Physical Therapy Assessment Goals gait mechanics Impairment 6MWT =1265 ft, but +VE trendelenburg sign and foot slap Environmental Air Specialist Goal (LTG) Pt will be able to complete 6MWT >1400 ft with improved trendelenburg sign and R foot slap. LTG Duration 10 weeks MMT strength Impairment pt has generalized weakness on R >L Short Term Goal (STG) pt will improve his strength up to 1/2 MMT grade to improve his gait mechanics and balance STG Duration 5 weeks Fdc Goal (LTG) pt will improve his strength up to 1 MMT grade to improve his gait mechanics and balance LTG Duration 10 weeks stair climbing Impairment pt needs UE support for stair climbing Short Term Goal (STG) pt uses L handrail Fdc Goal (LTG) pt will be able to climb stairs with step over pattern but without use of handrails safely. LTG Duration 10 weeks TALAVERA Impairment pt scores 41/56 on TALAVERA Short Term Goal (STG) pt will score >45 on TALAVERA to improve his overall balance STG Duration 5 weeks Fdc Goal (LTG) pt will score >48 on TALAVERA to improve his overall balance to reduce his fall risks LTG Duration 10 weeks Assessment Summary Assessment Pt shoes good static balance on uneven surface and good recovery response when he LOB. Pt currently has good understanding of HEP and management of his dx with compensatory strategies. Physical Therapy Plan Frequency and Duration Frequency of Treatment 1x/Week Duration of Treatment 10 weeks Plan of Care Start Date 08/29/20 Plan of Care End Date 11/12/20 Next Visit Focus/Plan Next Note Type Treatment Note Next Visit Plan low-mod intensity focused therex bike- stepper ankle strengthening OK SL leg press 15-20 reps balance training (SL, uneven surface) step up balance chase
--- NOTE | 2020-10-24 14:02 | PT.OTN ---
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) Ataxia, unspecified (10/24/20) Physical Therapy Treatment Note PT-OP-A Visit Information Start: 08/29/20 16:24 Freq: Status: Active Protocol: Document 10/24/20 13:01 (Rec: 10/24/20 14:02 [id number]) Out-Patient Physical Therapy Visit Information Visit Information Visit Type Discharge Summary Visit Start Time 13:02 Visit Stop Time 13:46 Total Visit Minutes 44 Visit Number 7 Number of [employer]ANT [employer] SPECIALIST Visits 0 PT-OP-B Current Condition Start: 08/29/20 16:24 Freq: Status: Active Protocol: Document 08/29/20 16:25 HH (Rec: 08/29/20 17:12 [email or web address]) Current Condition History of Current Condition Onset Date 15 years ago Current Complaints ataxic gait, decreased in balance, post GBS 15 years ago History of Current Condition Pt is a80 yo male here to improve his balance and LE strength. Per EMR, pt has a complex PMH which includes ischemic cardiomyopathy with CAD and placement of strents. 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 In addition, pt reports he started feeling the same for his LLE since 1.5 year ago but he has been doing exercises to slow his progression but it didnt help much as he stated. It has been going on long enough and getting worse that he is concerned. It is not associated with any other neuropathic symptoms such as in his fingers or toes. Pt has been seeing Dr. Olson for follow ups with his medical conditions. 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 Treatment Goals Patient/Caregiver Goals 1. to improve his overall balance and reduce his fall risks 2. to have a home exercise program to slow down his GBS progression. Current Functional Impairments (Reported) Functional Limitations- Other pt stated he has been falling once a month and mostly d/t tripping while walking. Personal Factors Other Personal Factors That May Effect see H&P Therapy/Recovery PT-OP-C Subjective Start: 08/29/20 16:24 Freq: Status: Active Protocol: Document 10/24/20 13:01 (Rec: 10/24/20 14:02 [id number]) OP-PT Subjective Patient Comments Patient Comments I had the spinal tap last saturday and im doing fine. Im still waiting for the result. Everything is the same so far. I would say i havent getting worse since 2 months ago which is good. PT-OP-D Balance Start: 08/29/20 16:24 Freq: Status: Active Protocol: Document 08/29/20 16:25 (Rec: 08/29/20 17:12 [email or web address]) Balance Tests Single Limb Standing Single Limb- Right 1 Single Limb- Left 3 Talavera Balance Assessment Evaluation Sitting to Standing Ability Independent w/Hands Unsupported Stance Safely- 2 minutes Sitting Unsupported, Feet on Floor Safely- 2 minutes Standing to Sitting Ability Safely, Minimal Hand Use Transfer Ability Safely, Hand Use Unsupported Stance- Eyes Closed Safely, 10 seconds Unsupported Stance- Eyes Open Supervision to maintain Reaching Forward Standing Safely, 5 inches Pick- Up Object From Floor Supervision Look Behind Shoulder - Standing Shifts Weight Unilateral Turning 360 Degrees Turns slowly, but safely Unsupported Stance, Alternating Feet on (I)- 8 Steps in > 20 secs Stair Unsupported Tandem Stance Assist to Step-15 seconds Unilateral Leg Stance Lifts Leg/Unable to Hold Total Score Talavera Total Score (out of 56 points) 41 Talavera Impairment Rating 20 to 39% Impaired (Score 34- 44) PT-OP-E Functional Tests Start: 08/29/20 16:24 Freq: Status: Active Protocol: Document 08/29/20 16:25 (Rec: 08/29/20 17:12 [email or web address]) Functional Tests 6 Minute Walk Test Distance 1265 Device Used none Comments +ve trendelenburg sign on R, R foot slap, no breaks taken PT-OP-G Mobility & Gait Start: 08/29/20 16:24 Freq: Status: Active Protocol: Document 08/29/20 16:25 (Rec: 08/29/20 17:12 [email or web address]) OP Gait Assessment Gait Deviations General Gait Pattern Antalgic,Ataxic,Decreased Stride Length,Decreased Feet Clearance,Wide Based Gait Factors Limiting Gait Function Factors Limiting Gait Function Abnormal Tonal Influences, Decreased Activity Tolerance, Decreased Strength,Poor Balance Comments Gait Comments Pt amb with a R foot slap and decreased stance phase on R, along with +ve trendelenburg sign. PT-OP-H Neuro Start: 08/29/20 16:24 Freq: Status: Active Protocol: Document 08/29/20 16:25 HH (Rec: 08/29/20 17:12 [email or web address]) Sensation Evaluation Gross Sensation Gross Sensation Left LE Impaired,Right LE Impaired Sensation Description Numbness Comments Summary Comments decreased sensation to touch and pressure with numbness from knee down bilaterally Deep Tendon Reflex & Clonus Assessment Deep Tendon Reflex Bilateral Achilles Deep Tendon Reflex 1+ Diminished Right Patellar Deep Tendon Reflex 2+ Normal Left Patellar Deep Tendon Reflex 0 Absent PT-OP-J Posture/Palpation/Skin Start: 08/29/20 16:24 Freq: Status: Active Protocol: Document 08/29/20 16:25 HH (Rec: 08/29/20 17:12 [email or web address]) Posture Evaluation Position Standing Evaluation View Anterior Comments Posture Comments WBOS in static stance PT-OP-M Strength Start: 08/29/20 16:24 Freq: Status: Active Protocol: Document 08/29/20 16:25 HH (Rec: 08/29/20 17:12 [email or web address]) Hip Strength Hip Manual Muscle Testing Right Flexion (L2) 3+ Fair+ Extension (S1) 3+ Fair+ Abduction 3+ Fair+ Adduction 4- Good- External Rotation 4- Good- Internal Rotation 4- Good- Left Flexion (L2) 4 Good Extension (S1) 4 Good Abduction 4 Good Adduction 4 Good External Rotation 4 Good Internal Rotation 4 Good Knee Strength Knee Manual Muscle Testing Right Flexion (S2) 4 Good Extension (L3) 4+ Good+ Left Flexion (S2) 4+ Good+ Extension (L3) 4+ Good+ Ankle/Foot Strength Ankle and Foot Manual Muscle Testing Right Dorsiflexion (L4) 4- Good- Plantarflexion (S1) 3+ Fair+ Inversion 3+ Fair+ Eversion (S1) 4- Good- Left Dorsiflexion (L4) 4+ Good+ Plantarflexion (S1) 4+ Good+ Inversion 4+ Good+ Eversion (S1) 4+ Good+ PT-OP-Q Treatments Start: 08/29/20 16:24 Freq: Status: Active Protocol: Document 10/24/20 13:01 HH (Rec: 10/24/20 14:02 [id number]) Therapeutic Exercises Sitting Exercises ankle saxman Side bilateral Comments for HEP Standing Exercises ankle board Standing Exercise Name sagittal and lateral roll Side bilateral Equipment Used within grab bars Comments improved static balance today. Gait Training Gait Activity 6MWT Comments 1290 ft without AD Neuro Re-Education Treatment Balance Activities stagger stance Details stagger stance Surface blue and black foam Equipment within //bar Comments pt has more difficulty with Rleg has leading foot. static balance Surface blue foam Equipment within //bar Reps/Duration 17 sec per rep x 8 x 2 sets Comments with eyes closed. Excessive hip strategy noted. pt able to deann 15-28 second without UE support per rep PT-OP-T Assessment and Plan Start: 08/29/20 16:24 Freq: Status: Active Protocol: Document 10/24/20 13:01 (Rec: 10/24/20 14:02 [id number]) Physical Therapy Assessment Goals gait mechanics Impairment 6MWT =1265 ft, but +VE trendelenburg sign and foot slap Short Term Goal (STG) 10/24 pt completed 1290ft with reduce foot slap noted(no AD) Public Accountant Goal (LTG) Pt will be able to complete 6MWT >1400 ft with improved trendelenburg sign and R foot slap. LTG Duration 10 weeks MMT strength Impairment pt has generalized weakness on R >L Short Term Goal (STG) pt will improve his strength up to 1/2 MMT grade to improve his gait mechanics and balance STG Duration 5 weeks Group Home Goal (LTG) 10/24 did not meet pt didnot show increase of 1 MMT foot strength pt will improve his strength up to 1 MMT grade to improve his gait mechanics and balance LTG Duration 10 weeks stair climbing Impairment pt needs UE support for stair climbing Short Term Goal (STG) pt uses L handrail Group Home Goal (LTG) 10/24 Pt closely met pt is able to climb stairs with step over pattern with use of L handrail safely. LTG Duration 10 weeks TALAVERA Impairment pt scores 41/56 on TALAVERA Short Term Goal (STG) pt will score >45 on TALAVERA to improve his overall balance STG Duration 5 weeks Group Home Goal (LTG) 10/24 pt closely met. scores 47 /56 on TALAVERA pt will score >48 on TALAVERA to improve his overall balance to reduce his fall risks LTG Duration 10 weeks Progress Towards Goals Progress Towards Goals Slow Progress due to Activity Tolerance,Slow Progress - Other Assessment Summary Assessment Pt has shown improved overall static, dynamic balance since initial evaluation. His TALAVERA went from 41 to 47/56 today. Pt has good understanding of HEP and how to manage his symptoms. Educated pt to consult MD if there's new onset of symptoms such as weakness, sensation loss, motor control loss. Pt agreed to DC from PT today. Physical Therapy Plan Frequency and Duration Frequency of Treatment 1x/Week Duration of Treatment 10 weeks Plan of Care Start Date 08/29/20 Plan of Care End Date 11/12/20 Discharge Physical Therapy Discharge Reasons Plateau in Progress Next Visit Focus/Plan Next Note Type Treatment Note Next Visit Plan low-mod intensity focused therex bike- stepper ankle strengthening [facility] SL leg press 15-20 reps balance training (SL, uneven surface) step up balance chase
== END 2020-10-28 09:46 | disposition home or self-care (01) ==
LOC: PHYS 13:00
PROVIDERS: PCP Family Medicine; Referring Provider Psychiatry & Neurology Neurology; Visit Provider Psychiatry & Neurology Neurology
DX: G62.89 Other specified polyneuropathies (principal); R27.0 Ataxia, unspecified
CPT/HCPCS: 97110; 97112; 97116; 97163

== ENCOUNTER → 2020-11-02 08:09 | Outpatient (CLI) | payer MEDICARE, SELFPAY | PROVIDERS: PCP Family Medicine; Referring Provider Psychiatry & Neurology Neurology; Visit Provider Psychiatry & Neurology Neurology | DX: M21.371 Foot drop, right foot (principal); M21.372 Foot drop, left foot; Z53.9 Procedure and treatment not carried out, unspecified reason ==

== ENCOUNTER → 2020-11-11 08:39 | Outpatient (CLI) | payer MEDICARE, SELFPAY ==
--- NOTE | 2020-11-11 | DI.MRI.S_ITS ---
PROCEDURE: MR HEAD/BRAIN WO/W CON INDICATIONS: BILATERAL FOOT DROP,ATAXIA TECHNIQUE: Noncontrast axial T1 spin echo, axial T2 fast spin echo, sagittal and axial FLAIR, coronal T2 fast spin echo, axial gradient echo, axial diffusion and ADC through the brain. After the administration of contrast, axial and coronal T1 spin echo with fat saturation through the brain. COMPARISON: [facility], MR, STROKE PROTOCOL, 09/03/2017, 11:24. [facility], CT, HEAD WITHOUT CONTRAST, 09/02/2017, 16:34. FINDINGS: Image quality: Diagnostic, with note made of motion artifact. CSF spaces: Basal cisterns are patent. No extra-axial fluid collections. Ventricles are normal in size and shape. Brain: There is a moderately sized remote right occipital lobe infarction seen inferiorly. There is also a small, remote left occipital lobe infarction seen. No midline shift. No intracranial bleeds or masses. No abnormal intracranial enhancement. There is cerebral volume loss for age. There is periventricular white matter chronic small vessel ischemic change. The brainstem appears normal. Diffusion-weighted images demonstrate no acute ischemic insults. Normal intravascular flow voids are present. Relatively prominent perivascular spaces are noted. Skull and face: Calvarial marrow is normal in signal. Orbits appear normal. Note is made of bilateral lens replacements. Sinuses: [id number] mucosal thickening is seen within the left maxillary sinus. Sinuses and mastoids otherwise appear clear. IMPRESSION: No findings of acute or subacute infarction can be seen. Bilateral remote occipital lobe infarctions seen, right worse than left. No masses or abnormal enhancement can be seen. Note is made of age-appropriate brain parenchymal volume loss and chronic small vessel ischemic changes. Dictated by: Alejandro Cleveland M.D. on 11/11/2020 at 8:55 Approved by: Alejandro Cleveland M.D. on 11/11/2020 at 8:59
== END ==
PROVIDERS: PCP Family Medicine; Referring Provider Psychiatry & Neurology Neurology; Visit Provider Psychiatry & Neurology Neurology
DX: R27.0 Ataxia, unspecified (principal); M21.372 Foot drop, left foot; M21.371 Foot drop, right foot; Z86.73 Personal history of transient ischemic attack (TIA), and cerebral infarction without residual deficits
CPT/HCPCS: 70553

== ENCOUNTER → 2020-12-15 09:00 | Oncology outpatient (ONC) | payer MEDICARE, SELFPAY ==
--- NOTE | 2020-12-08 12:33 | ONC.SCHED ---
This patient has a [facility] MCR plan. He is an outside patient for IVIG infusion. We received an approved authorization for him from 11/23/20-11/23/21 for 13 total visits. The auth says nothing about [employer] anywhere on it and it does not have a hcpcs codes. I called [facility] to get the correct code and she said [id number]. This code does not show up on the [employer] pre auth list that we got in our email. According to the people we were talking to this morning from [employer] in the call/meeting, if it is not on the list it does not required PA. They also said that they would be honoring any auths that we already had.
[2020-12-12 09:50] VITALS: BP 126/64; PULSE 69; RESP 18; TEMP 36.9; O2SAT 98
[2020-12-12] MEDS: diphenhydrAMINE 50 MG/ML VIAL 25 MG IV (11:02)
[2020-12-12] MEDS: ACETAMINOPHEN 325 MG TABLET 650 MG PO (11:02)
[2020-12-12] MEDS: LORATADINE 10 MG TABLET PO (11:02)
[2020-12-12] MEDS: DEXAMETHASONE 10 MG/ML VIAL 4 MG IV (11:02)
[2020-12-12] MEDS: FAMOTIDINE 20 MG TABLET PO (11:41)
[2020-12-12] MEDS: IMMUNE GLOBULIN (IVIG) 40 GM in ISOOSMOTIC VEHICLE 0 ML 60 ML IV (11:43)
[2020-12-13 09:04] VITALS: BP 141/75; PULSE 80; RESP 18; TEMP 36.8; O2SAT 99
[2020-12-13] MEDS: ACETAMINOPHEN 325 MG TABLET 650 MG PO (09:09)
[2020-12-13] MEDS: LORATADINE 10 MG TABLET PO (09:10)
[2020-12-13] MEDS: diphenhydrAMINE 50 MG/ML VIAL 25 MG IV (09:10)
[2020-12-13] MEDS: DEXAMETHASONE 10 MG/ML VIAL 4 MG IV (09:10)
[2020-12-13] MEDS: FAMOTIDINE 20 MG TABLET PO (09:21)
[2020-12-13] MEDS: IMMUNE GLOBULIN (IVIG) 40 GM in ISOOSMOTIC VEHICLE 0 ML 60 ML IV (09:58)
[2020-12-14 09:04] VITALS: BP 138/71; PULSE 65; RESP 18; TEMP 36.6; O2SAT 99
[2020-12-14] MEDS: LORATADINE 10 MG TABLET PO (09:11)
[2020-12-14] MEDS: diphenhydrAMINE 50 MG/ML VIAL 25 MG IV (09:11)
[2020-12-14] MEDS: ACETAMINOPHEN 325 MG TABLET 650 MG PO (09:11)
[2020-12-14] MEDS: FAMOTIDINE 20 MG TABLET PO (09:24)
[2020-12-14] MEDS: DEXAMETHASONE 10 MG/ML VIAL 4 MG IV (09:24)
[2020-12-14] MEDS: IMMUNE GLOBULIN (IVIG) 40 GM in ISOOSMOTIC VEHICLE 0 ML 60 ML IV (09:49)
[2020-12-15] MEDS: ACETAMINOPHEN 325 MG TABLET 650 MG PO (09:04)
[2020-12-15] MEDS: LORATADINE 10 MG TABLET PO (09:05)
[2020-12-15] MEDS: FAMOTIDINE 20 MG TABLET PO (09:05)
[2020-12-15] MEDS: DEXAMETHASONE 10 MG/ML VIAL 4 MG IV (09:06)
[2020-12-15] MEDS: diphenhydrAMINE 50 MG/ML VIAL 25 MG IV (09:12)
[2020-12-15] MEDS: IMMUNE GLOBULIN (IVIG) 40 GM in ISOOSMOTIC VEHICLE 0 ML 60 ML IV (10:02)
[2020-12-15 10:30] VITALS: BP 137/73; PULSE 50; RESP 16; TEMP 36.8; O2SAT 98
[2020-12-16] MEDS: ACETAMINOPHEN 325 MG TABLET 650 MG PO (09:16)
[2020-12-16] MEDS: FAMOTIDINE 20 MG TABLET PO (09:16)
[2020-12-16] MEDS: diphenhydrAMINE 50 MG/ML VIAL 25 MG IV (09:17)
[2020-12-16] MEDS: DEXAMETHASONE 10 MG/ML VIAL 4 MG IV (09:17)
[2020-12-16] MEDS: LORATADINE 10 MG TABLET PO (09:17)
[2020-12-16] MEDS: IMMUNE GLOBULIN (IVIG) 40 GM in ISOOSMOTIC VEHICLE 0 ML 60 ML IV (09:28)
[2020-12-16 09:30] VITALS: BP 123/63; PULSE 60; RESP 16; TEMP 37; O2SAT 96
--- NOTE | 2020-12-16 09:55 | PC.NURSE ---
Addendum entered by Nisa Humphries R.N. 12/16/20 13:19: IVIG transfusion completed. PIV discontinued. No s/sx of transfusion reaction. Awake, alert, and pleasantly cooperative. Ambulated with cane to BR. VSS and afebrile. F/U with provider as scheduled. Original Note: Acute Care: Received patient in room 210, awake, alert, and pleasantly cooperative. Ambulated to Acute Care with cane. VSS on arrival. Peripheral IV to left forearm placed yesterday, flushing well. Pre medicated as ordered. IVIG infusion initiated as ordered, rate per protocol. Resting comfortably in chair, call light within reach.
[2020-12-16 11:45] VITALS: BP 123/66; PULSE 59; RESP 16; TEMP 36.9; O2SAT 97
[2020-12-16 13:10] VITALS: BP 133/75; PULSE 59; RESP 16; TEMP 36.8; O2SAT 98
== END ==
PROVIDERS: PCP Family Medicine; Referring Provider Psychiatry & Neurology Neurology; Visit Provider Psychiatry & Neurology Neurology
DX: G61.81 Chronic inflammatory demyelinating polyneuritis (principal)
CPT/HCPCS: 36415; 96365; 96366; 96375; A9270; J1100; J1200; J1561

== ENCOUNTER → 2021-04-18 14:52 | Outpatient (CLI) | payer MEDICARE, SELFPAY ==
[2021-04-18 16:30] LABS: Add Manual Diff / Slide Review NO; Basophils Absolute Auto 0 /uL (0-100); Basophils Percent Auto 0.3 % (0-2); Eosinophils Absolute Auto 100 /uL (0-450); Eosinophils Percent Auto 1.5 % (2-4); Hematocrit 44.1 % (41-53); Lymphocytes Absolute Auto 1300 /uL (1100-4500); Lymphocytes Percent Auto 14.7 % (25-40); Mean Corpuscular HGB Conc 34.1 % (30-36); Mean Corpuscular Hemoglobin 30.7 PG (26-34); Monocytes Absolute Auto 600 /uL (0-900); Monocytes Percent Auto 7.3 % (3-14); Neutrophils Absolute Auto 6500 /uL (1500-7000); Neutrophils Percent Auto 76.2 % (50-75); Platelet Count 220 X10^3/uL (150-400); Red Cell Distribution Width 14.3 % (11.6-14.8); White Blood Cell Count 8.5 X10^3/uL (4.5-11.0)
[2021-04-18 17:15] LABS: INR 4.2 (0.9-1.3); Prothrombin Time 49.4 SECONDS (10.1-12.7)
[2021-04-18 17:29] LABS: Alanine Aminotransferase 30 IU/L (<50); Albumin 3.9 g/dL (3.5-5.0); Albumin Globulin Ratio 1.7 (1.0-2.8); Alkaline Phosphatase 56 U/L (38-126); Aspartate Aminotransferase 28 IU/L (17-59); BUN Creatinine Ratio 23.9 (6-22); Bilirubin Total 0.4 mg/dL (0.2-1.3); Blood Urea Nitrogen 21 mg/dL (9-20); Carbon Dioxide 29 mmol/L (22-32); Chloride 108 mmol/L (98-107); Estimated Glomerular Filt Rate > 60.0 mL/min (>60); Globulin 2.3 g/dL (1.7-4.1); Glucose 99 mg/dL (80-110); HEMOLYSIS 23 (0-50); Potassium 4.5 mmol/L (3.4-5.1); Sodium 142 mmol/L (137-145); Total Protein 6.2 g/dL (6.3-8.2)
== END ==
PROVIDERS: PCP Family Medicine; Referring Provider Family Medicine; Visit Provider Family Medicine
DX: I10 Essential (primary) hypertension (principal); R19.5 Other fecal abnormalities
CPT/HCPCS: 80053; 85025; 85610

== ENCOUNTER → 2021-06-01 07:06 | Outpatient (CLI) | payer MEDICARE, SELFPAY ==
[2021-06-01 08:22] LABS: Hematocrit 27.7 % (41-53); Hemoglobin 9.2 g/dL (13.5-17.5)
[2021-06-02 14:01] LABS: Interpretation Negative (Negative)
== END ==
PROVIDERS: PCP Family Medicine; Referring Provider Family Medicine; Visit Provider Family Medicine
DX: R19.5 Other fecal abnormalities (principal)
CPT/HCPCS: 36415; 83013; 85014; 85018

== ENCOUNTER → 2021-07-03 08:07 | Outpatient (CLI) | payer MEDICARE, SELFPAY ==
[2021-07-03 12:32] LABS: COVID19 -Nasal RAPID Negative (Negative)
== END ==
PROVIDERS: PCP Family Medicine; Visit Provider Nurse Practitioner Family
DX: Z20.822 Contact with and (suspected) exposure to COVID-19 (principal)
CPT/HCPCS: 87635; C9803

== ENCOUNTER 2021-07-05 13:21 | Day surgery (SDC) | payer MEDICARE, SELFPAY ==
--- NOTE | 2021-07-05 | PATH_ITS ---
[facility] Accession Number: [id number] . 01 Material submitted: . PART A: gastrointestinal site - GASTRIC BODY BIOPSY PART B: esophagus, E-G Junction - GE JUNCTION . 02 Diagnosis: A. Stomach, Biopsy, Biopsy: Acute erosive gastritis. Foreign material present, positive for iron by iron stain. Negative for Helicobacter organisms by immunohistochemistry. Negative for intestinal metaplasia. Negative for dysplasia or malignancy. . B. Gastroesophageal Junction, Biopsy: Squamocolumnar junctional mucosa with specialized intestinal metaplasia, consistent with Hartmann's esophagus. Negative for dysplasia and malignancy. [facility] 07/10/2021 1159 Local . 02 Electronically signed: . Carlota Aldana MD, Pathologist NPI- [id number] . 01 Gross description: . Part A: GASTRIC BODY BIOPSY: Received in formalin are multiple fragment(s) of cavanaugh, soft tissue measuring 0.8 x 0.3 x 0.2 cm in aggregate submitted entirely in 1 cassette(s) Part B: GE JUNCTION: Received in formalin is 1 fragment(s) of cavanaugh, soft tissue measuring 0.3 x 0.2 x 0.2 cm submitted entirely in 1 cassette(s) /GET 07/06/2021 1358 Local . 02 Microscopic: . A) An immunohistochemical stain was performed to evaluate for Helicobacter organisms and is negative. The control stain showed appropriate reactivity. . An iron stain was performed to evaluate foreign material on the surface of one of the gastric fragments and is positive for iron. The control stain showed appropriate reactivity. . * This test was developed and its performance characteristics determined by [facility]. It has not been cleared or approved by the U.S. Food and Drug Administration. The FDA has determined that such clearance or approval is not necessary. This test is used for clinical purposes. It should not be regarded as investigational or for research. . 02 Pathologist provided ICD-10: K92.1, K22.70 . 02 CPT . 584046, 455566, F04499, 029873 Performed at: 01 [facility] [address] [id number] MD [place] MD Phone: [phone] Performed at: 02 [facility] [address] [place] [id number] MD Carlota Aldana MD Phone: [phone]
[2021-07-05 13:51] VITALS: BP 137/63; PULSE 79; RESP 18; TEMP 37; O2SAT 98; BMI 28.7
[2021-07-05] MEDS: SODIUM CHLORIDE 0.9% 1,000 ML 100 ML IV (14:01)
--- NOTE | 2021-07-05 14:44 | PM.HP.1 ---
History of Present Illness History of Present Illness Date Patient Seen: 07/05/21 Time Patient Seen: 14:44 Chief complaint: [facility] Patient History Medical History CAD (coronary artery disease) Cataract 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 Colon polyps (2009) Colorectal cancer (1990) Diverticular disease (2003) Diverticulitis Epididymitis Foot pain (2013) GERD (gastroesophageal reflux disease) Guillain-Glyndon syndrome () Hearing loss (2012) Heart failure, diastolic (1996) Influenza B LV (left ventricular) mural thrombus (2016) Measles Myocardial infarction (1996) Peripheral neuropathy (2001) Rubella Scrotal swelling Surgical History Anesthesia Status post colectomy (1990) Status post colonoscopy (2012) Status post coronary artery stent placement (01/2008) Status post tonsillectomy and adenoidectomy (2011) Family & Social History Family History Father Heart disease Colon cancer Mother Stroke Heart disease Heart attack Social History: household members spouse Tobacco & Substance use: Smoking Status Never smoker alcohol intake never Substance Use Type does not use Meds Home Medications and Allergies Home Medications Medication Instructions Recorded Confirmed Type multivitamin (Multiple Vitamins) 1 tab PO QDAY #0 08/15/11 07/05/21 History omega 6-xso-hos-fish oil 1,000 mg 1,000 mg PO BID #0 08/20/11 07/05/21 History (120 mg-180 mg) capsule (Fish Oil) losartan 25 mg tablet (Cozaar) 50 mg PO QDAY #0 08/28/17 07/05/21 History metoprolol succinate 25 mg 25 mg PO QDAY #0 08/28/17 07/05/21 History tablet,extended release 24 hr (Toprol XL) omeprazole 20 mg capsule,delayed 20 mg PO QPM #0 08/28/17 07/05/21 History release rosuvastatin 10 mg tablet 10 mg PO QDAY #0 09/02/17 07/05/21 History cholecalciferol (vitamin D3) 50 2,000 unit PO DAILY 06/25/18 07/05/21 History mcg (2,000 unit) capsule aspirin 81 mg tablet,delayed 81 mg PO DAILY 05/24/20 07/05/21 History release (Aspir-) warfarin 5 mg tablet 5 mg PO 1700 #120 tab 12/05/20 05/29/21 Rx ferrous gluconate 324 mg (37.5 mg 324 mg PO .every other day #15 tab 06/01/21 07/05/21 Rx iron) tablet enoxaparin 100 mg/mL subcutaneous mg 07/05/21 History syringe warfarin 5 mg tablet 5 mg 07/05/21 History Allergies Allergy/AdvReac Type Severity Reaction Status Date / Time Influenza Virus Vaccines Allergy Unknown Verified 07/05/21 13:46 [INFLUENZA VIRUS VACCINES] Review of Systems Review of Systems ROS: Yes All systems reviewed with the patient and are negative except as otherwise documented Exam Vital Signs (past 8 hours): - 07/05/21 13:51 Temperature 98.6 F Pulse Rate 79 Respiratory Rate 18 Blood Pressure 137/63 Pulse Oximetry 98 Oxygen Delivery Method Room Air Const General: cooperative and comfortable Orientation: alert HENOK Head: normocephalic Ears: external ears normal Nose: external nose normal Face and sinus: normal facial exam Mouth: oral mucosae normal Eyes General: appearance normal, both eyes and all related structures Neck Neck: normal visual inspection Chest Chest: normal inspection of the chest Resp Effort & Inspection: normal respiratory effort Auscultation: clear to auscultation bilaterally Cardio Rate: regular rate Rhythm: regular rhythm Heart Sounds: no murmurs GI Inspection: normal to inspection Palpation: soft and No tender Auscultation: normal bowel sounds Skin General: no rashes or lesions noted and No jaundice Neuro General: patient alert and moves all extremities Cognition: normal cognition Speech: speech normal Extrem General: no pedal edema Psych Appearance: grossly normal Assessment & Plan Assessment & Plan narrative: Intermittent melena. Dyspepsia. EGD is planned for today. The patient indicates that he received bridging Lovenox therapy through his primary care while off his Coumadin. Last dose of Lovenox was yesterday. Time Spent With Patient Critical Care time: I spent a total of [] minutes of critical care time on this patient's care today; this time is exclusive of procedural time.
--- NOTE | 2021-07-05 14:46 | PM.PREOP ---
Pre-operative Note COVID-19 COVID-19 status: Negative Result date/Date tested (Pos, Neg/Pending): 07/03/21 Interval Note History & Physical reviewed/Exam performed by Physician: Yes Changes to H&P: No ASA Class (for procedural sedation): III
--- NOTE | 2021-07-05 15:09 | P.OP.ENDO_ITS ---
Operative Date/Time/Diagnoses Date of procedure: 07/05/21 Time of procedure: 15:09 Pre-op diagnosis: Melena and dyspepsia Post-op diagnosis: same Procedure & Clinicians Study performed: Esophagogastroduodenoscopy with biopsies Same procedure as scheduled: Yes Indications: Melena and dyspepsia Surgeon: Lenny Gama Procedure Notes SCOAP/Timeout: Done Procedure in detail: After the risks and benefits were explained, written and verbal informed consent was obtained. The patient was brought into the procedure room and placed into the left lateral decubitus position. Please see nurse shovel operator notes. The scope was introduced into the mouth through the bite block and advanced under direct visualization to the 2nd portion of the duodenum. The scope was slowly withdrawn carefully examining the mucosa for any defects or lesions. Retroflexed views were accomplished in the stomach. The stomach was decompressed, the scope was then removed from the patient who tolerated the procedure well. Scope withdrawal time: Not applicable Sedation minutes: 19 Complications: none Impression: 1. Duodenum: This is visually normal from the bulb through to the 2nd portion. 2. Stomach: No evidence of any outlet obstruction no ulceration. No fungating mass lesions. There was a diminutive benign-appearing polyp seen in the gastric body. Retroflexed views of the LES were unremarkable. I did not appreciate any obvious Silver's erosions. There was however an approximately 2-3 cm oval patch of friable mucosa in the mid to proximal body along the lesser curvature. This demonstrated some subtle contact hemorrhage from the tip of the scope. With closed forceps the area felt somewhat firm. I elected to take multiple biopsies from this area for histopathologic analysis. 3. Esophagus: The GE junction was at approximately 41 cm from the incisors. No acute erosive changes no strictures no mass lesions. There was a small subtle sliding hiatal hernia noted. The Z-line was slightly irregular and in the 1-3 o'clock location seemed to extend ever so slightly up into the tubular esophagus. I therefore elected to take a biopsy from this salmon-colored mucosa x1 with a fresh set of forceps. The remainder of the esophagus was unremarkable. Endoscopic diagnosis 1. Small hiatal hernia 2. Irregular Z-line 3. Focal friable gastritis -biopsied Post-procedure Plan for aftercare: 1. Await histopathology 2. Continue proton pump inhibitor therapy 3. Based on today's examination, Coumadin and Lovenox can be restarted tomorrow. 4. Contingent on histology, surveillance upper endoscopy versus clinic follow-up will be arranged. Disposition: PACU
[2021-07-05 15:12] VITALS: BP 99/56; PULSE 64; RESP 13; TEMP 36.8; O2SAT 98
[2021-07-05 15:17] VITALS: BP 108/60; PULSE 65; RESP 13; O2SAT 98
[2021-07-05 15:22] VITALS: BP 123/68; PULSE 63; RESP 12; O2SAT 98
[2021-07-05 15:27] VITALS: BP 111/69; PULSE 72; RESP 14; O2SAT 100
[2021-07-05 15:49] VITALS: BP 136/70; PULSE 61; RESP 14; TEMP 36.1; O2SAT 99
== END 2021-07-05 16:05 | disposition home or self-care (01) ==
PROVIDERS: PCP Family Medicine; Referring Provider Internal Medicine Gastroenterology; Visit Provider Internal Medicine Gastroenterology
PROC: 0DJ08ZZ Inspection of Upper Intestinal Tract, Via Natural or Artificial Opening Endoscopic (ICD-10-PCS; CPT 43235; principal; 2021-07-05 14:30)
DX: K29.00 Acute gastritis without bleeding (principal); K44.9 Diaphragmatic hernia without obstruction or gangrene; I10 Essential (primary) hypertension; E78.00 Pure hypercholesterolemia, unspecified; I25.10 Atherosclerotic heart disease of native coronary artery without angina pectoris; Z85.038 Personal history of other malignant neoplasm of large intestine; Z90.49 Acquired absence of other specified parts of digestive tract; Z86.73 Personal history of transient ischemic attack (TIA), and cerebral infarction without residual deficits; Z79.01 Long term (current) use of anticoagulants; Z79.82 Long term (current) use of aspirin; Z95.5 Presence of coronary angioplasty implant and graft
CPT/HCPCS: 43239

== ENCOUNTER → 2021-08-16 07:14 | Outpatient (CLI) | payer MEDICARE, SELFPAY ==
[2021-08-16 08:30] LABS: Add Manual Diff / Slide Review NO; Basophils Absolute Auto 0 /uL (0-100); Basophils Percent Auto 0.7 % (0-2); Eosinophils Absolute Auto 100 /uL (0-450); Eosinophils Percent Auto 1.5 % (2-4); Hematocrit 33.2 % (41-53); Hemoglobin 10.3 g/dL (13.5-17.5); Lymphocytes Absolute Auto 1100 /uL (1100-4500); Lymphocytes Percent Auto 17.5 % (25-40); Mean Corpuscular HGB Conc 31.1 % (30-36); Mean Corpuscular Hemoglobin 21.6 PG (26-34); Monocytes Absolute Auto 600 /uL (0-900); Monocytes Percent Auto 8.8 % (3-14); Neutrophils Absolute Auto 4500 /uL (1500-7000); Neutrophils Percent Auto 71.5 % (50-75); Platelet Count 253 X10^3/uL (150-400); Red Blood Cell Count 4.78 X10^6/uL (4.5-5.9); Red Cell Distribution Width 18.5 % (11.6-14.8); White Blood Cell Count 6.3 X10^3/uL (4.5-11.0)
[2021-08-16 08:31] LABS: Mean Corpuscular Volume 69.5 fL (80-100)
[2021-08-16 08:46] LABS: Alanine Aminotransferase 20 IU/L (<50); Albumin 3.9 g/dL (3.5-5.0); Albumin Globulin Ratio 1.6 (1.0-2.8); Alkaline Phosphatase 40 U/L (38-126); Aspartate Aminotransferase 25 IU/L (17-59); BUN Creatinine Ratio 18.5 (6-22); Bilirubin Total 0.4 mg/dL (0.2-1.3); Blood Urea Nitrogen 17 mg/dL (9-20); Calcium 8.8 mg/dL (8.4-10.2); Carbon Dioxide 29 mmol/L (22-32); Chloride 104 mmol/L (98-107); Cholesterol 109 mg/dL (140-199); Estimated Glomerular Filt Rate > 60.0 mL/min (>60); Globulin 2.4 g/dL (1.7-4.1); Glucose 104 mg/dL (80-110); HDL Cholesterol 33 mg/dL (40-60); HEMOLYSIS 24 (0-50); LDL Cholesterol Calculated 58 mg/dL (<100); Potassium 4.1 mmol/L (3.4-5.1); Sodium 139 mmol/L (137-145); Total Protein 6.3 g/dL (6.3-8.2); Triglycerides 88 mg/dL (35-150)
[2021-08-16 09:00] LABS: Hypochromasia 1+; Microcytosis 2+
== END ==
PROVIDERS: PCP Family Medicine; Referring Provider Internal Medicine Cardiovascular Disease; Visit Provider Internal Medicine Cardiovascular Disease
DX: I25.5 Ischemic cardiomyopathy (principal)
CPT/HCPCS: 36415; 80053; 80061; 85025

== ENCOUNTER → 2021-10-09 08:28 | Outpatient (CLI) | payer MEDICARE, SELFPAY ==
[2021-10-09 11:14] LABS: COVID19 -Nasal RAPID Negative (Negative)
== END ==
PROVIDERS: Family Provider Family Medicine; PCP Family Medicine; Visit Provider Physician Assistant
DX: Z20.822 Contact with and (suspected) exposure to COVID-19 (principal)
CPT/HCPCS: 87635; C9803

== ENCOUNTER 2021-10-10 09:03 | Day surgery (SDC) | payer MEDICARE, SELFPAY ==
[2021-10-10] VITALS (7 sets, daily range): BP systolic 107–139; BP diastolic 65–78; PULSE 60–73; RESP 11–18; TEMP 36.1–36.6; O2SAT 96–99; BMI 28.7
--- NOTE | 2021-10-10 | PATH_ITS ---
[facility] Accession Number: [id number] . 01 Material submitted: . esophagus - DISTAL ESOPHAGUS . 02 Diagnosis: Distal Esophagus, Biopsy: Columnar junctional mucosa with no diagnostic abnormality. Negative for intestinal metaplasia. Negative for dysplasia and malignancy. . [facility] 10/17/2021 1305 Local . 02 Electronically signed: . Carlota Aldana MD, Pathologist NPI- [id number] . 01 Gross description: . DISTAL ESOPHAGUS: Received in formalin is 1 fragment(s) of cavanaugh, soft tissue measuring 0.2 x 0.2 x 0.1 cm submitted entirely in 1 cassette(s) /GOPAL 10/12/2021 1838 Local . 02 Pathologist provided ICD-10: K30 . 02 CPT . 990942 Performed at: 01 [facility] [address] [id number] MD [place] MD Phone: [phone] Performed at: 02 [facility] [address] [place], [place] [id number] MD Carlota Aldana MD Phone: [phone]
--- NOTE | 2021-10-10 09:20 | P.HP_ITS ---
History of Present Illness History of Present Illness Date Patient Seen: 10/10/21 Time Patient Seen: 09:20 Chief complaint: EGD Narrative: Hartmann's esophagus. Gastritis. Stools remain dark but he is on iron. Patient History Medical History CAD (coronary artery disease) Cataract 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 Colon polyps (2009) Colorectal cancer (1990) Diverticular disease (2003) Diverticulitis Epididymitis Foot pain (2013) GERD (gastroesophageal reflux disease) Guillain-[place] syndrome () Hearing loss (2012) Heart failure, diastolic (1996) Influenza B LV (left ventricular) mural thrombus (2016) Measles Myocardial infarction (1996) Peripheral neuropathy (2001) Rubella Scrotal swelling Surgical History Anesthesia Status post colectomy (1990) Status post colonoscopy (2012) Status post coronary artery stent placement (01/2008) Status post tonsillectomy and adenoidectomy (2011) Family & Social History Family History Father Heart disease Colon cancer Mother Stroke Heart disease Heart attack Social History: household members spouse Tobacco & Substance use: Smoking Status Never smoker alcohol intake never Substance Use Type does not use Meds Home Medications and Allergies Home Medications Medication Instructions Recorded Confirmed Type multivitamin (Multiple Vitamins) 1 tab PO QDAY #0 08/15/11 08/28/21 History omega 5-mcw-yfg-fish oil 1,000 mg 1,000 mg PO BID #0 08/20/11 08/28/21 History (120 mg-180 mg) capsule (Fish Oil) losartan 25 mg tablet (Cozaar) 50 mg PO QDAY #0 08/28/17 08/28/21 History metoprolol succinate 25 mg 25 mg PO QDAY #0 08/28/17 08/28/21 History tablet,extended release 24 hr (Toprol XL) omeprazole 20 mg capsule,delayed 20 mg PO QPM #0 08/28/17 08/28/21 History release rosuvastatin 10 mg tablet 10 mg PO QDAY #0 09/02/17 08/28/21 History cholecalciferol (vitamin D3) 50 2,000 unit PO DAILY 06/25/18 08/28/21 History mcg (2,000 unit) capsule warfarin 5 mg tablet 5 mg PO 1700 #120 tab 12/05/20 08/28/21 Rx ferrous gluconate 324 mg (37.5 mg 324 mg PO .every other day #15 tab 06/01/21 08/28/21 Rx iron) tablet enoxaparin 150 mg/mL subcutaneous 150 mg SUBCUT DAILY #10 ml 09/28/21 09/28/21 Rx syringe Allergies Allergy/AdvReac Type Severity Reaction Status Date / Time Influenza Virus Vaccines Allergy Unknown Verified 08/28/21 08:47 [INFLUENZA VIRUS VACCINES] Review of Systems Review of Systems ROS: Yes All systems reviewed with the patient and are negative except as otherwise documented Exam Const General: cooperative and comfortable Orientation: alert HENMT Head: normocephalic Ears: external ears normal Nose: external nose normal Face and sinus: normal facial exam Mouth: oral mucosae normal Eyes General: appearance normal, both eyes and all related structures Neck Neck: normal visual inspection Chest Chest: normal inspection of the chest Resp Effort & Inspection: normal respiratory effort Cardio Rate: regular rate GI Inspection: normal to inspection Skin General: no rashes or lesions noted and No jaundice Neuro General: patient alert and moves all extremities Cognition: normal cognition Speech: speech normal Extrem General: no pedal edema Psych Appearance: grossly normal Assessment & Plan Assessment & Plan narrative: 81-year-old male with focal gastritis non neoplastic. Also with Hartmann's nondysplastic. Repeat EGD is pursued today. Patient reports his last dose of Lovenox was last night. Time Spent With Patient Critical Care time: I spent a total of [] minutes of critical care time on this patient's care today; this time is exclusive of procedural time.
--- NOTE | 2021-10-10 09:22 | PM.PREOP ---
Pre-operative Note COVID-19 COVID-19 status: Negative Result date/Date tested (Pos, Neg/Pending): 10/09/21 Interval Note History & Physical reviewed/Exam performed by Physician: Yes Changes to H&P: Yes ASA Class (for procedural sedation): II
[2021-10-10] MEDS: SODIUM CHLORIDE 0.9% 1,000 ML 84 ML IV (09:35)
--- NOTE | 2021-10-10 10:15 | PM.OP.EGD ---
Operative Date/Time/Diagnoses Date of procedure: 10/10/21 Time of procedure: 10:15 Pre-op diagnosis: Hartmann's and gastritis Post-op diagnosis: same Procedure & Clinicians Study performed: EGD with biopsies Same procedure as scheduled: Yes Indications: Hartmann's and gastritis Surgeon: Lenny Gama Procedure Notes SCOAP/Timeout: Done Procedure in detail: After the risks and benefits were explained, written and verbal informed consent was obtained. The patient was brought into the procedure room and placed into the left lateral decubitus position. Please see nurse finance lecturer notes for sedation details. The scope was introduced into the mouth through the bite block and advanced under direct visualization to the 2nd portion of the duodenum. The scope was slowly withdrawn carefully examining the mucosa for any defects or lesions. Retroflexed views were accomplished in the stomach. The stomach was decompressed, the scope was then removed from the patient who tolerated the procedure well. Sedation minutes: 8 Complications: none Impression: 1. Duodenum: This appeared normal from the bulb through the 2nd portion. 2. Stomach: No outlet obstruction no mass lesions no ulcerations. The previously identified area of inflammation was not seen today. Overall gastric mucosa appeared fairly unremarkable. Retroflexed views of the LES were also unremarkable. 3. Esophagus: The squamocolumnar junction generally appear to correlate with the top of the gastric folds. GEJ was at roughly 39 cm from the incisors. There was no evidence of any stricture no mass lesions. A subtle sliding hiatal hernia was present. The Z-line was slightly irregular and the salmon-colored mucosa appeared to wonder ever so slightly up into the distal esophagus in the 2-3 o'clock location. This area was targeted for repeat biopsy the remainder of the esophagus was unremarkable. Endoscopic diagnosis 1. Subtle sliding hiatal hernia 2. Irregular Z-line Post-procedure Plan for aftercare: 1. Await histopathology 2. Continue omeprazole. 3. Surveillance endoscopy will likely not be recommended moving forward. 4. Restart anticoagulation this evening (including Lovenox). Disposition: PACU
--- NOTE | 2021-10-10 10:29 | SUR.PHASEI ---
Pt to PACU with PROPOSAL REP after colonoscopy/endoscopy. Pt with productive cough of clear sputum, suctioned by PROPOSAL REP. Pt responding to commands. denies pain and/or SOB/difficulty breathing.
--- NOTE | 2021-10-10 11:14 | SUR.PHASEII ---
Pt up dressed self, and then to BR to void in WC with Mattie ANDREWA prior to discharge by WC with family. tolerating mehran joanie.
== END 2021-10-10 11:05 | disposition home or self-care (01) ==
PROVIDERS: Family Provider Family Medicine; PCP Family Medicine; Referring Provider Internal Medicine Gastroenterology; Visit Provider Internal Medicine Gastroenterology
PROC: 0DJ08ZZ Inspection of Upper Intestinal Tract, Via Natural or Artificial Opening Endoscopic (ICD-10-PCS; CPT 43235; principal; 2021-10-10 10:00)
DX: K44.9 Diaphragmatic hernia without obstruction or gangrene (principal); I10 Essential (primary) hypertension; E78.00 Pure hypercholesterolemia, unspecified; I25.10 Atherosclerotic heart disease of native coronary artery without angina pectoris; I25.5 Ischemic cardiomyopathy; Z86.73 Personal history of transient ischemic attack (TIA), and cerebral infarction without residual deficits; Z79.01 Long term (current) use of anticoagulants; Z79.82 Long term (current) use of aspirin
CPT/HCPCS: 43239; J2704

== ENCOUNTER → 2021-10-26 10:46 | Outpatient (CLI) | payer MEDICARE, SELFPAY ==
[2021-10-26 11:39] LABS: Add Manual Diff / Slide Review NO; Basophils Absolute Auto 0 /uL (0-100); Basophils Percent Auto 0.4 % (0-2); Eosinophils Absolute Auto 100 /uL (0-450); Eosinophils Percent Auto 1.3 % (2-4); Hematocrit 37.5 % (41-53); Hemoglobin 11.7 g/dL (13.5-17.5); Lymphocytes Absolute Auto 1300 /uL (1100-4500); Lymphocytes Percent Auto 20.9 % (25-40); Mean Corpuscular HGB Conc 31.3 % (30-36); Mean Corpuscular Hemoglobin 22.2 PG (26-34); Mean Corpuscular Volume 70.9 fL (80-100); Monocytes Absolute Auto 600 /uL (0-900); Monocytes Percent Auto 9.7 % (3-14); Neutrophils Absolute Auto 4300 /uL (1500-7000); Neutrophils Percent Auto 67.7 % (50-75); Platelet Count 267 X10^3/uL (150-400); Red Blood Cell Count 5.29 X10^6/uL (4.5-5.9); Red Cell Distribution Width 22.2 % (11.6-14.8); White Blood Cell Count 6.3 X10^3/uL (4.5-11.0)
[2021-10-26 12:11] LABS: Anisocytosis 2+; Poikilocytosis 2+
== END ==
PROVIDERS: Family Provider Family Medicine; PCP Family Medicine; Referring Provider Family Medicine; Visit Provider Family Medicine
DX: D64.9 Anemia, unspecified (principal)
CPT/HCPCS: 36415; 85025

== ENCOUNTER → 2021-12-12 07:06 | Outpatient (CLI) | payer MEDICARE, SELFPAY ==
[2021-12-12 08:37] LABS: Hematocrit 40.3 % (41-53)
[2021-12-12 09:31] LABS: Ferritin 9 ng/mL (18-464)
== END ==
PROVIDERS: Family Provider Family Medicine; PCP Family Medicine; Referring Provider Family Medicine; Visit Provider Family Medicine
DX: D64.9 Anemia, unspecified (principal)
CPT/HCPCS: 36415; 82728; 85014; 85018

== ENCOUNTER → 2022-01-31 09:01 | Outpatient (CLI) | payer MEDICARE, SELFPAY ==
[2022-01-31 12:19] LABS: COVID19 -Nasal RAPID Negative (Negative)
== END ==
PROVIDERS: Family Provider Family Medicine; PCP Family Medicine; Visit Provider Family Medicine Sleep Medicine
DX: Z20.822 Contact with and (suspected) exposure to COVID-19 (principal)
CPT/HCPCS: 87635; C9803

== ENCOUNTER → 2022-02-02 07:55 | Outpatient (CLI) | payer MEDICARE, SELFPAY ==
--- NOTE | 2022-02-02 | DI.US.S_ITS ---
PROCEDURE: US CAROTID DOPPLER BI INDICATIONS: Ischemic cardiomyopathy TECHNIQUE: Color and pulse Doppler interrogation was performed of both carotid systems, with image documentation and velocity measurements. COMPARISON: [facility], STROKE PROTOCOL, 09/03/2017, 11:24. [facility], CAROTID ARTERY DOPPLER BILAT, 07/28/2012, 10:33. [facility], US CAROTID DOPPLER BI, 10/09/2018, 14:53. [facility], US CAROTID DOPPLER BI, 06/13/2020, 11:17. FINDINGS: Stenosis calculations are based on SRU (Society of Radiologists in Ultrasound) criteria. Right side: Brachial blood pressure: 153/87 mm Hg. Common carotid artery peak systolic velocity: 78 cm/sec (prior 59 cm/s). Internal carotid artery peak systolic velocity: Occluded, as before. Internal carotid artery end diastolic velocity: Occluded, as before. External carotid artery peak systolic velocity: 74 cm/sec (prior 74 cm/s). ICA/CCA peak systolic ratio: Occluded Jaramillo scale imaging description: 100% Percent internal carotid artery stenosis: An occluded right internal carotid artery is seen.. Vertebral artery: Flow direction is antegrade. Left side: Brachial blood pressure: 163/89 mm Hg. Common carotid artery peak systolic velocity: 128 cm/sec (prior 78 cm/s). Internal carotid artery peak systolic velocity: 83 cm/sec (prior 68 cm/s). Internal carotid artery end diastolic velocity: 29 cm/sec (prior 29 cm/s). External carotid artery peak systolic velocity: 67 cm/sec (prior 64 cm/s). ICA/CCA peak systolic ratio: 0.7 (prior 0.9). Jaramillo scale imaging description: No significant abnormality is seen. Percent internal carotid artery stenosis: Less than 50% by velocity criteria. Vertebral artery: Flow direction is antegrade. 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 No significant abnormality is seen of the left carotid. Dictated by: Alejandro Cleveland M.D. on 02/02/2022 at 11:49 Approved by: Alejandro Cleveland M.D. on 02/02/2022 at 11:52
--- NOTE | 2022-02-02 08:30 | DI.ECHO.S_ITS ---
Echocardiogram Report + + :Name: STACY GÓMEZ Study Date: 02/02/2022 Height: 72 in : :[facility] ReadingLocation: Weight: 210 lb : : Gender: Male BSA: 2.2 m2 : :: 1940 Age: 81 yrs BP: 140/81 mmHg: :Reason For Study: Cardiomyopathy, Ischemic : :Ordering Physician: Mina Palmer : :Emely Turner Performed By: Jaspal Randhawa : :Referring: Mina Turner : + + Interpretation Summary Left ventricular size is at the upper limits of normal. There is no LV thrombus. The ejection fraction is estimated to be 40-45%. There has been no significant change in LV EF since the previous exam. There is apical severe hypokinesis. There is apical septal wall akinesis. There is apical inferior wall akinesis. There is apical anterior wall severe hypokinesis. No significant change in wall motion abnormalities from the previous study. Right ventricular systolic function is at the lower limits of normal. There is mild mitral regurgitation. Compared to the prior echo study, there has been a decrease in the severity of mitral regurgitation. The right ventricular systolic pressure is estimated to be at least 24 mmHg based on an estimated right atrial pressure of 3 mm Hg. Procedure: A two-dimensional transthoracic echocardiogram with color flow and Doppler was performed. The study quality was technically difficult. A contrast injection of Definity was performed to improve assessment of LV function. The patient was in normal sinus rhythm during the exam. Left Ventricle: Left ventricular size is at the upper limits of normal. There is no thrombus. Left ventricular systolic function is mildly reduced. The ejection fraction is estimated to be 40-45%. There has been no significant change since the previous exam. There is apical severe hypokinesis. There is apical septal wall akinesis. There is apical inferior wall akinesis. There is apical anterior wall severe hypokinesis. Compared to the prior exam, the left ventricular wall motion has not changed. MV E/A: 0.60 Med Peak E' Charles: 3.5 cm/sec E/E' med: 15.7. Right Ventricle: The right ventricle is normal size. Right ventricular systolic function is at the lower limits of normal. Atria: Both atria are normal in size. Both atria have remained unchanged in size since the prior echo exam. The interatrial septum grossly appears intact with no obvious evidence for an atrial septal defect. Mitral Valve: The mitral valve is normal in structure and function. There is mild mitral regurgitation. Compared to the prior echo study, there has been a decrease in the severity of mitral regurgitation. Aortic Valve: There is mild aortic valve sclerosis. The aortic valve is trileaflet. The aortic valve opens well. There is no aortic valve stenosis. No aortic regurgitation is present. Tricuspid Valve: The tricuspid valve is normal in structure and function. There is trace tricuspid regurgitation. The right ventricular systolic pressure is estimated to be at least 24 mmHg based on an estimated right atrial pressure of 3 mm Hg. Pulmonic Valve: The pulmonic valve is not well visualized. Great Vessels: The aortic root is normal size. The IVC is of normal diameter and collapses greater than 50% with a sniff. This suggests a low right atrial pressure of 3 mm Hg. Pericardium/ Pleura There is no pericardial effusion. There is an anterior echo-free space consistent with a fat pad. There is no pleural effusion. MMode/2D Measurements & Calculations LVIDd: 5.8 cm LVOT diam: 2.4 cm LVIDs: 3.9 cm Ao root diam: 3.9 cm FS: 32.6 % IVSd: 1.0 cm LVPWd: 0.93 cm LV shields. diameter/BSA (cm/m^2): 2.7 LV sys. diameter/BSA (cm/m^2): 1.8 LA A2 area: 20.6 cm2 TAPSE: 1.7 cm LA A4 area: 17.6 cm2 LA length (vol): 5.6 cm LA vol: 55.1 ml LA vol index: 25.3 ml/m2 Doppler Measurements & Calculations Ao V2 max: 110.9 cm/sec LVOT Max Charles: 75.0 cm/sec Ao V2 mean: 84.2 cm/sec LV V1 max P.2 mmHg Ao max P.9 mmHg LV V1 VTI: 17.2 cm Ao mean P.1 mmHg JOHN(I,D): 3.3 cm2 Ao V2 VTI: 23.6 cm JOHN(V,D): 3.1 cm2 sev ratio: 0.73 JOHN indexed to BSA (cm^2/m^2): 1.5 MV E max charles: 55.6 cm/sec TR max charles: 231.4 cm/sec MV A max charles: 92.4 cm/sec TR max P.4 mmHg MV E/A: 0.60 Med Peak E' Charles: 3.5 cm/sec E/E' med: 15.7 Lat Peak E' Charles: 4.0 cm/sec E/E' lat: 13.9 E/e' average: 14.8 MV dec time: 0.33 sec SV(LVOT): 78.8 ml Reading Physician:05:39 PM
--- NOTE | 2022-02-02 15:30 | PM.TREADMILL ---
Cardiac Stress Test Report Referral & Results Date Patient Seen: 02/02/22 Time Patient Seen: 15:31 Requesting provider: Mina Turner Indication: ischemic cardiomyopathy Rest ECG: Sinus rhythm, Q waves in inferior leads Procedure Note: After Lexiscan injection had minimal dyspnea, no chest pain After Lexiscan injection had no significant ECG changes No ectopy Impression: Normal Lexisan stress test Nuclear images pending Please note: Actual ECG tracings can be found in the PACS system.
--- NOTE | 2022-02-02 18:14 | DI.NM.S_ITS ---
DATE OF SERVICE: 02/02/2022 PROCEDURE PERFORMED: Pharmacologic vasodilator stress and rest myocardial perfusion imaging with gating to assess ejection fraction and regional wall motion. ORDERING PROVIDER: Dr. Mina Turner. INDICATIONS: The patient is an 81-year-old male with a history of previous myocardial infarction, carotid occlusion, and apical thrombus. This study is performed for risk stratification. PHARMACOLOGIC VASODILATOR STRESS: The patient was injected with 0.4 mg of regadenoson with a normal hemodynamic response with minimal dyspnea but no chest discomfort. His resting ECG shows inferior and apical Q-waves, but relatively normal ST segments. With stress, there are no significant ST-segment shifts. He had rare PVCs, but no complex ventricular ectopy. Per protocol, 25.8 millicuries of technetium-99m Myoview was injected and he was imaged 20 minutes later using a gated SPECT acquisition protocol. Earlier in the day, he had been injected with 12.4 millicuries of technetium-99m Myoview while at rest and was imaged 20 minutes later, again using a gated SPECT acquisition protocol. FINDINGS: 1. Raw data: There is fairly good myocardial tracer uptake although with some evidence for diaphragmatic attenuation. Lung/heart ratio is normal at 0.25 with a normal TID ratio of 0.91. 2. Quantitated gated SPECT: Post-stress ejection fraction is estimated at 51% with akinesis of the apex, extending into the mid to distal septum and distal inferior wall. The remaining segments appear to have fairly good contractility. The resting ejection fraction is 44% with an identical contraction pattern. The resting end-diastolic volume is significantly increased at 180 mL. 3. Myocardial perfusion imaging: Post-stress supine images shows a severe perfusion defect in the distal mid to distal septum and inferior wall, extending into the distal anterior wall and encompassing the entirety of the apex. This defect persists on the prone images. While there is mildly reduced tracer activity in the proximal to mid inferior wall, this completely resolves on the prone images. The resting images show an identical perfusion pattern with no significant improvement in the inferior and apical defect. IMPRESSION: 1. Abnormal myocardial perfusion study. 2. Moderate-sized severe fixed perfusion defect involving the mid and distal septum and inferior wall and apex, consistent with previous transmural infarction but no significant associated ischemia. 3. Mildly reduced left ventricular systolic function with an apical wall motion abnormality and moderately increased left ventricular volumes. 4. No angina or ECG evidence of ischemia with pharmacologic vasodilator stress. 5. Compared to the previous myocardial perfusion study of 12/07/2009, an identical perfusion pattern was seen. The previous ejection fraction was 54% with an end- diastolic volume of 162 ml, suggesting the absence of any significant change. Cody Franco - RS/renetta/lc doc#: [id number]/job#: [id number] dd: 02/02/2022 16:35:00 dt: 02/02/2022 17:41:00 DICTATING MD/COPIES TO: Doc Lisa MD; Mina Turner MD COPIES MNE: GILDA;
== END ==
PROVIDERS: Family Provider Family Medicine; PCP Family Medicine; Referring Provider Internal Medicine Cardiovascular Disease; Visit Provider Internal Medicine Cardiovascular Disease
DX: I65.21 Occlusion and stenosis of right carotid artery (principal); R94.39 Abnormal result of other cardiovascular function study; I25.5 Ischemic cardiomyopathy; I34.0 Nonrheumatic mitral (valve) insufficiency; I25.10 Atherosclerotic heart disease of native coronary artery without angina pectoris; I25.2 Old myocardial infarction; E78.5 Hyperlipidemia, unspecified
CPT/HCPCS: 78452; 93017; 93306; 93880; A9502; J2785; Q9957

== ENCOUNTER → 2022-03-13 07:14 | Outpatient (CLI) | payer MEDICARE, SELFPAY ==
[2022-03-13 08:51] LABS: Hematocrit 46.3 % (41-53); Hemoglobin 15.5 g/dL (13.5-17.5)
[2022-03-13 09:37] LABS: Ferritin 11 ng/mL (18-464)
== END ==
PROVIDERS: Family Provider Family Medicine; PCP Family Medicine; Referring Provider Family Medicine; Visit Provider Family Medicine
DX: D64.9 Anemia, unspecified (principal)
CPT/HCPCS: 36415; 82728; 85014; 85018

== ENCOUNTER → 2022-03-30 10:26 | Outpatient (CLI) | payer MEDICARE, SELFPAY ==
--- NOTE | 2022-03-30 10:27 | DI.RAD.S_ITS ---
PROCEDURE: XR ABDOMEN 1V INDICATIONS: abd pain, r/o constipation TECHNIQUE: One view of the abdomen acquired. COMPARISON: [facility], CT, CT ABDOMEN PELVIS WITH CONTRAST, 12/11/2017, 13:20. FINDINGS: Surgical changes and devices: None. Bowel: Bowel gas pattern is nonspecific and nonobstructive. Moderate amount of stool in colon. Soft tissues: No suspicious abdominal calcifications. Visualized solid organ contours appear normal in size. Bones: No suspicious bony lesions. IMPRESSION: Moderate amount of stool in colon. Dictated by: Fay Bell M.D. on 03/30/2022 at 11:40 Approved by: Fay Bell M.D. on 03/30/2022 at 11:40
== END ==
PROVIDERS: Family Provider Family Medicine; PCP Family Medicine; Referring Provider Family Medicine; Visit Provider Family Medicine
DX: R10.9 Unspecified abdominal pain (principal)
CPT/HCPCS: 74018

== ENCOUNTER → 2022-07-09 07:02 | Outpatient (CLI) | payer MEDICARE, SELFPAY ==
[2022-07-09 12:25] LABS: Appearance Urine UA CLEAR; Bilirubin Urine UA NEGATIVE (NEGATIVE); Color Urine UA YELLOW; Glucose Urine UA NEGATIVE (Negative); Ketones Urine UA NEGATIVE (NEGATIVE); Leukocyte Esterase Urine UA 2+ (NEGATIVE); Nitrite Urine UA NEGATIVE (Negative); Occult Blood Urine UA TRACE-LYSED (Negative); Protein Urine UA NEGATIVE (Negative); Urobilinogen Urine UA 0.2 E.U./dL (0.2); pH Urine UA 5.5 (4.5-8.0)
[2022-07-09 12:46] LABS: Bacteria Urine Occasional (0-1); RBC Urine 0-1/HPF (0-5/HPF); Squamous Epithelial Cell Urine 0-1 /HPF (0-5/HPF); WBC Urine 1-5/HPF (0-5/HPF)
[2022-07-09 12:47] LABS: Culture Indicated Urine Specimen Cultured
== END ==
PROVIDERS: Family Provider Family Medicine; PCP Family Medicine; Referring Provider Family Medicine; Visit Provider Family Medicine
DX: R35.1 Nocturia (principal)
CPT/HCPCS: 81003; 81015; 87086

== ENCOUNTER → 2022-07-18 07:10 | Outpatient (CLI) | payer MEDICARE, SELFPAY ==
[2022-07-18 10:24] LABS: Hemoglobin 14.9 g/dL (13.5-17.5)
[2022-07-18 11:10] LABS: BUN Creatinine Ratio 14.1 (6-22); Blood Urea Nitrogen 14 mg/dL (9-20); Calcium 8.4 mg/dL (8.4-10.2); Carbon Dioxide 28 mmol/L (22-32); Chloride 104 mmol/L (98-107); Estimated Glomerular Filt Rate > 60 mL/min (>60); Glucose 83 mg/dL (80-110); HEMOLYSIS < 15 (0-50); Potassium 4.2 mmol/L (3.4-5.1); Sodium 141 mmol/L (137-145)
== END ==
PROVIDERS: Family Provider Family Medicine; PCP Family Medicine; Referring Provider Internal Medicine Cardiovascular Disease; Visit Provider Internal Medicine Cardiovascular Disease
DX: I25.5 Ischemic cardiomyopathy (principal); I25.10 Atherosclerotic heart disease of native coronary artery without angina pectoris; D64.9 Anemia, unspecified
CPT/HCPCS: 36415; 80048; 85014; 85018

== ENCOUNTER → 2022-08-16 10:09 | Outpatient (CLI) | payer MEDICARE, SELFPAY ==
[2022-08-16 11:35] LABS: Prothrombin Time 72.8 SECONDS (10.1-12.7)
[2022-08-16 11:38] LABS: INR 6.2 (0.9-1.3)
== END ==
PROVIDERS: Family Provider Family Medicine; PCP Family Medicine; Referring Provider Family Medicine; Visit Provider Family Medicine
DX: R79.1 Abnormal coagulation profile (principal); Z51.81 Encounter for therapeutic drug level monitoring; Z79.01 Long term (current) use of anticoagulants
CPT/HCPCS: 36415; 85610

== ENCOUNTER → 2022-08-31 07:11 | Outpatient (CLI) | payer MEDICARE, SELFPAY ==
[2022-08-31 09:06] LABS: Prostate Specific Antigen 2.43 ng/mL (0.10-4.00); TSH w/ Reflex to FT4 2.14 uIU/mL (0.47-4.68)
== END ==
PROVIDERS: Family Provider Family Medicine; PCP Family Medicine; Referring Provider Physician Assistant; Visit Provider Physician Assistant
DX: R39.12 Poor urinary stream (principal); E03.9 Hypothyroidism, unspecified; R35.1 Nocturia
CPT/HCPCS: 36415; 84153; 84443

== ENCOUNTER → 2023-01-31 07:03 | Outpatient (CLI) | payer MEDICARE, SELFPAY ==
[2023-01-31 08:46] LABS: Alanine Aminotransferase 24 IU/L (<50); Albumin 3.9 g/dL (3.5-5.0); Alkaline Phosphatase 40 U/L (38-126); Aspartate Aminotransferase 22 IU/L (17-59); BUN Creatinine Ratio 22.2 (6-22); Bilirubin Total 0.8 mg/dL (0.2-1.3); Blood Urea Nitrogen 20 mg/dL (9-20); Calcium 8.7 mg/dL (8.4-10.2); Carbon Dioxide 28 mmol/L (22-32); Chloride 104 mmol/L (98-107); Cholesterol 112 mg/dL (140-199); Estimated Glomerular Filt Rate > 60 mL/min (>60); Glucose 96 mg/dL (80-110); HDL Cholesterol 35 mg/dL (40-60); HEMOLYSIS < 15 (0-50); LDL Cholesterol Calculated 62 mg/dL (<100); Potassium 4.4 mmol/L (3.4-5.1); Sodium 139 mmol/L (137-145); Total Protein 5.9 g/dL (6.3-8.2); Triglycerides 75 mg/dL (35-150)
== END ==
PROVIDERS: Family Provider Family Medicine; PCP Family Medicine; Referring Provider Internal Medicine Cardiovascular Disease; Visit Provider Internal Medicine Cardiovascular Disease
DX: E78.5 Hyperlipidemia, unspecified (principal)
CPT/HCPCS: 36415; 80053; 80061

== ENCOUNTER → 2023-02-19 06:55 | Outpatient (CLI) | payer MEDICARE, SELFPAY | PROVIDERS: Family Provider Family Medicine; PCP Family Medicine; Referring Provider Specialist; Visit Provider Specialist | DX: N40.1 Benign prostatic hyperplasia with lower urinary tract symptoms (principal); N13.8 Other obstructive and reflux uropathy | CPT/HCPCS: 36415; 84153 ==

== ENCOUNTER → 2023-07-05 07:02 | Outpatient (CLI) | payer MEDICARE, SELFPAY ==
[2023-07-05 09:07] LABS: BUN Creatinine Ratio 18.2 (6-22); Blood Urea Nitrogen 16 mg/dL (9-20); Carbon Dioxide 27 mmol/L (22-32); Chloride 106 mmol/L (98-107); Estimated Glomerular Filt Rate > 60 mL/min (>60); Glucose 97 mg/dL (80-110); HEMOLYSIS < 15 (0-50); Sodium 139 mmol/L (137-145)
== END ==
PROVIDERS: Family Provider Family Medicine; PCP Family Medicine; Referring Provider Internal Medicine Cardiovascular Disease; Visit Provider Internal Medicine Cardiovascular Disease
DX: I25.5 Ischemic cardiomyopathy (principal); I25.10 Atherosclerotic heart disease of native coronary artery without angina pectoris
CPT/HCPCS: 36415; 80048

== ENCOUNTER → 2023-08-05 06:53 | Outpatient (CLI) | payer MEDICARE, SELFPAY ==
[2023-08-05 08:40] LABS: BUN Creatinine Ratio 19.1 (6-22); Blood Urea Nitrogen 18 mg/dL (9-20); Calcium 9.2 mg/dL (8.4-10.2); Carbon Dioxide 29 mmol/L (22-32); Chloride 105 mmol/L (98-107); Estimated Glomerular Filt Rate > 60 mL/min (>60); Glucose 103 mg/dL (80-110); HEMOLYSIS < 15 (0-50); Potassium 4.6 mmol/L (3.4-5.1); Sodium 139 mmol/L (137-145)
== END ==
PROVIDERS: Family Provider Family Medicine; PCP Family Medicine; Referring Provider Internal Medicine Cardiovascular Disease; Visit Provider Internal Medicine Cardiovascular Disease
DX: I25.5 Ischemic cardiomyopathy (principal); I49.3 Ventricular premature depolarization
CPT/HCPCS: 36415; 80048

== ENCOUNTER → 2023-08-26 07:01 | Outpatient (CLI) | payer MEDICARE, SELFPAY ==
[2023-08-26 10:52] LABS: Prostate Specific Antigen 1.44 ng/mL (0.10-4.00)
== END ==
PROVIDERS: Family Provider Family Medicine; PCP Family Medicine; Referring Provider Specialist; Visit Provider Specialist
DX: N40.1 Benign prostatic hyperplasia with lower urinary tract symptoms (principal); N13.8 Other obstructive and reflux uropathy
CPT/HCPCS: 36415; 84153

== ENCOUNTER → 2023-11-01 07:28 | Outpatient (CLI) | payer OTHER, SELFPAY ==
[2023-11-01 08:29] LABS: Add Manual Diff / Slide Review NO; Basophils Absolute Auto 0 /uL (0-100); Basophils Percent Auto 0.3 % (0-2); Eosinophils Absolute Auto 100 /uL (0-450); Eosinophils Percent Auto 1.4 % (2-4); Hematocrit 41.7 % (41-53); Hemoglobin 14.3 g/dL (13.5-17.5); Lymphocytes Absolute Auto 1000 /uL (1100-4500); Lymphocytes Percent Auto 14.7 % (25-40); Mean Corpuscular HGB Conc 34.2 % (30-36); Mean Corpuscular Hemoglobin 30.8 PG (26-34); Monocytes Absolute Auto 500 /uL (0-900); Monocytes Percent Auto 8.1 % (3-14); Neutrophils Absolute Auto 5000 /uL (1500-7000); Neutrophils Percent Auto 75.5 % (50-75); Platelet Count 192 X10^3/uL (150-400); Red Blood Cell Count 4.63 X10^6/uL (4.5-5.9); White Blood Cell Count 6.6 X10^3/uL (4.5-11.0)
[2023-11-01 08:49] LABS: Alanine Aminotransferase 23 IU/L (<50); Albumin 3.7 g/dL (3.5-5.0); Albumin Globulin Ratio 1.8 (1.0-2.8); Alkaline Phosphatase 42 U/L (38-126); Aspartate Aminotransferase 23 IU/L (17-59); BUN Creatinine Ratio 19.1 (6-22); Bilirubin Total 0.7 mg/dL (0.2-1.3); Blood Urea Nitrogen 17 mg/dL (9-20); Calcium 9.1 mg/dL (8.4-10.2); Carbon Dioxide 27 mmol/L (22-32); Chloride 105 mmol/L (98-107); Cholesterol 98 mg/dL (140-199); Estimated Glomerular Filt Rate > 60 mL/min (>60); Globulin 2.1 g/dL (1.7-4.1); Glucose 96 mg/dL (80-110); HDL Cholesterol 31 mg/dL (40-60); HEMOLYSIS < 15 (0-50); LDL Cholesterol Calculated 52 mg/dL (<100); Potassium 4.1 mmol/L (3.4-5.1); Sodium 138 mmol/L (137-145); Total Protein 5.8 g/dL (6.3-8.2); Triglycerides 77 mg/dL (35-150)
[2023-11-01 09:19] LABS: Thyroid Stimulating Hormone 1.78 uIU/mL (0.47-4.68)
== END ==
PROVIDERS: Family Provider Family Medicine; PCP Family Medicine; Referring Provider Family Medicine; Visit Provider Family Medicine
DX: C18.9 Malignant neoplasm of colon, unspecified (principal); I25.5 Ischemic cardiomyopathy; E78.00 Pure hypercholesterolemia, unspecified; Z86.73 Personal history of transient ischemic attack (TIA), and cerebral infarction without residual deficits; I25.10 Atherosclerotic heart disease of native coronary artery without angina pectoris; E03.9 Hypothyroidism, unspecified
CPT/HCPCS: 36415; 80053; 80061; 84443; 85025

== ENCOUNTER → 2024-01-16 06:58 | Outpatient (CLI) | payer MEDICARE, SELFPAY ==
[2024-01-16 08:11] LABS: Add Manual Diff / Slide Review NO; Basophils Absolute Auto 0 /uL (0-100); Basophils Percent Auto 0.7 % (0-2); Eosinophils Absolute Auto 100 /uL (0-450); Eosinophils Percent Auto 1.9 % (2-4); Hematocrit 21.5 % (41-53); Hemoglobin 7.1 g/dL (13.5-17.5); Lymphocytes Absolute Auto 700 /uL (1100-4500); Mean Corpuscular HGB Conc 32.7 % (30-36); Mean Corpuscular Hemoglobin 24.8 PG (26-34); Mean Corpuscular Volume 75.9 fL (80-100); Monocytes Absolute Auto 700 /uL (0-900); Monocytes Percent Auto 11.1 % (3-14); Neutrophils Absolute Auto 4500 /uL (1500-7000); Neutrophils Percent Auto 74.3 % (50-75); Platelet Count 400 X10^3/uL (150-400); Red Blood Cell Count 2.84 X10^6/uL (4.5-5.9); Red Cell Distribution Width 19.5 % (11.6-14.8); White Blood Cell Count 6.1 X10^3/uL (4.5-11.0)
== END ==
PROVIDERS: Family Provider Family Medicine; PCP Family Medicine; Referring Provider Internal Medicine Gastroenterology; Visit Provider Internal Medicine Gastroenterology
DX: K92.1 Melena (principal)
CPT/HCPCS: 36415; 85025

== ENCOUNTER 2024-01-21 15:53 | Inpatient (IN) | payer MEDICARE, SELFPAY ==
[2024-01-21] VITALS (13 sets, daily range): BP systolic 104–136; BP diastolic 54–65; PULSE 67–91; RESP 14–22; TEMP 36.1–36.6; O2SAT 97–100; BMI 27.9; BMI 28.3
[2024-01-21 16:26] LABS: Add Manual Diff / Slide Review NO; Basophils Absolute Auto 0 /uL (0-100); Basophils Percent Auto 0.7 % (0-2); Eosinophils Absolute Auto 200 /uL (0-450); Eosinophils Percent Auto 2.9 % (2-4); Hematocrit 21.1 % (41-53); Lymphocytes Absolute Auto 1100 /uL (1100-4500); Lymphocytes Percent Auto 16.7 % (25-40); Mean Corpuscular Hemoglobin 23.8 PG (26-34); Mean Corpuscular Volume 74.2 fL (80-100); Monocytes Absolute Auto 800 /uL (0-900); Monocytes Percent Auto 11.8 % (3-14); Neutrophils Absolute Auto 4600 /uL (1500-7000); Neutrophils Percent Auto 67.9 % (50-75); Platelet Count 346 X10^3/uL (150-400); Red Blood Cell Count 2.85 X10^6/uL (4.5-5.9); Red Cell Distribution Width 20.9 % (11.6-14.8); White Blood Cell Count 6.7 X10^3/uL (4.5-11.0)
[2024-01-21 16:28] LABS: Hemoglobin 6.8 g/dL (13.5-17.5)
[2024-01-21 16:41] LABS: INR 2.2 (0.9-1.3); Prothrombin Time 25.5 SECONDS (9.4-12.5)
[2024-01-21 16:43] LABS: PTT Partial Thromboplastin Tim 37 SECONDS (25.1-36.5); RBC Morphology Normal Morphology
[2024-01-21 16:48] LABS: Alanine Aminotransferase 12 IU/L (<50); Albumin 3.1 g/dL (3.5-5.0); Albumin Globulin Ratio 1.3 (1.0-2.8); Alkaline Phosphatase 51 U/L (38-126); Aspartate Aminotransferase 22 IU/L (17-59); BUN Creatinine Ratio 23.8 (6-22); Bilirubin Total 0.4 mg/dL (0.2-1.3); Blood Urea Nitrogen 20 mg/dL (9-20); Calcium 8.4 mg/dL (8.4-10.2); Carbon Dioxide 25 mmol/L (22-32); Chloride 108 mmol/L (98-107); Estimated Glomerular Filt Rate > 60 mL/min (>60); Globulin 2.3 g/dL (1.7-4.1); Glucose 101 mg/dL (80-110); HEMOLYSIS < 15 (0-50); Potassium 3.8 mmol/L (3.4-5.1); Sodium 137 mmol/L (137-145); Total Protein 5.4 g/dL (6.3-8.2)
[2024-01-21] MEDS: PANTOPRAZOLE 40 MG VIAL 80 MG IV (17:18)
--- NOTE | 2024-01-21 18:15 | ED_ITS ---
HPI - Recheck/Abnormal Lab/Rx General Chief Complaint: Recheck/Abnormal Lab/Rx Stated Complaint: Per pt Low Hemoglobin Time Seen by Provider: 01/21/24 16:26 Source: patient Mode of arrival: Ambulatory History of Present Illness HPI narrative: Patient is an 83-year-old male. Has a history of colon cancer. Had a bowel resection. Has had colonoscopies every several years since then. His last colonoscopy was 5 years ago. He is on Coumadin/warfarin for cardiac issues. He has been having black-colored stools for the past 3-4 months. Has talked to this primary doctor about this. Actually saw a GI provider last week. There was discussion about scheduling him for a upper endoscopy and colonoscopy but this is yet to be done given the fact that he just met last week with a GI doctor. He states that he has been having progressively worsening fatigue, dyspnea on exertion for the past month or so. He denies any vomiting. No fevers. He has had a blood transfusion in the past but that was many years ago Related Data Home Medications Medication Instructions Recorded Confirmed multivitamin (Multiple Vitamins 1 tab PO QDAY ##0 08/15/11 01/21/24 tablet) omega 2-xbb-ifb-fish oil 1,000 mg 1,000 mg PO BID ##0 08/20/11 01/21/24 (120 mg-180 mg) capsule (Fish Oil) rosuvastatin 10 mg tablet 10 mg PO QDAY ##0 09/02/17 01/21/24 cholecalciferol (vitamin D3) 50 2,000 unit PO DAILY 06/25/18 01/21/24 mcg (2,000 unit) capsule omeprazole 20 mg capsule,delayed 20 mg PO BID #0 caps 11/09/21 01/21/24 release spironolactone 25 mg tablet 12.5 mg PO DAILY 08/30/22 01/21/24 losartan 50 mg tablet 75 mg PO DAILY 01/21/24 01/21/24 metoprolol succinate 25 mg 25 mg PO BID 01/21/24 01/21/24 tablet,extended release 24 hr Previous Rx's Medication Instructions Recorded clopidogrel 75 mg tablet 75 mg PO DAILY #90 tabs 10/26/21 ascorbic acid (vitamin C) 250 mg 250 mg PO DAILY #90 tabs 11/09/21 tablet tamsulosin 0.4 mg capsule 0.8 mg (2 x 0.4 mg) PO BEDTIME 12/10/22 #180 caps finasteride 5 mg tablet 5 mg PO DAILY #90 tabs 02/26/23 warfarin 5 mg tablet 5 mg PO .COMPLEX #115 tabs 12/31/23 Allergies Allergy/AdvReac Type Severity Reaction Status Date / Time Influenza Virus Vaccines Allergy Unknown Verified 07/05/23 09:30 [INFLUENZA VIRUS VACCINES] Review of Systems Constitutional Constitutional: Reports system reviewed and no additional complaints, except as documented Cardiovascular Cardiovascular: Reports system reviewed and no additional complaints, except as documented Respiratory Respiratory: Reports system reviewed and no additional complaints, except as documented Gastrointestinal Gastrointestinal: Reports system reviewed and no additional complaints, except as documented Musculoskeletal Musculoskeletal: Reports system reviewed and no additional complaints, except as documented Integumentary/Breasts Skin/Breast: Reports system reviewed and no additional complaints, except as documented Neurologic Neurologic: Reports system reviewed and no additional complaints, except as documented Hematologic/Lymphatic On Anticoagulants: Yes Patient History Medical History Ischemic cardiomyopathy 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 infarction BPH w urinary obs/LUTS Neurological disease High blood pressure Anticoagulation goal of INR 2 to 3 Dark stools GERD (gastroesophageal reflux disease) Diverticular disease (2003) Foot pain (2013) Colorectal cancer (1990) Colon polyps (2009) Cataract Hearing loss (2012) Measles Rubella Guillain-[place] syndrome (~2001) 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 Peripheral neuropathy (2001) LV (left ventricular) mural thrombus (2016) Heart failure, diastolic (1996) Myocardial infarction (1996) CAD (coronary artery disease) Occipital cerebral infarction (09/06/17) 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 (09/06/17) Influenza B Scrotal swelling Epididymitis Diverticulitis large intestine Diverticulitis Surgical History History of hernia repair Anesthesia Status post coronary artery stent placement (01/2008) Status post tonsillectomy and adenoidectomy (2011) Status post colonoscopy (2012) Status post colectomy (1990) Family History Father Heart disease Colon cancer Hearing impairment Mother Stroke Heart disease Heart attack Social History marital status: number of children: 3 household members: spouse Smoking Status: Never smoker alcohol intake: never substance use type: does not use Smoking Status: Never smoker Substance Use Type: does not use Exam Initial Vital Signs Initial Vital Signs: Vital Signs Temperature 97.8 F 01/21/24 15:56 Pulse Rate 91 H 01/21/24 15:56 Respiratory Rate 18 01/21/24 15:56 Blood Pressure 110/57 L 01/21/24 15:56 Pulse Oximetry 99 01/21/24 15:56 Oxygen Delivery Method Room Air 01/21/24 15:56 Const General: cooperative, comfortable and No ill appearing HENMT Head: normal to inspection Resp Effort & Inspection: normal respiratory effort Auscultation: clear to auscultation bilaterally Cardio Rate: regular rate Rhythm: regular rhythm GI Inspection: normal to inspection and non-distended Palpation: soft and No tender Skin General: no rashes or lesions noted Neuro General: patient alert, patient awake and moves all extremities Extrem General: capillary refill normal Course Orders Ordered: ED Orders 01/21/24 18:57 Consult to General Surgery Stat 01/21/24 19:01 Consult to Physician Stat Acetaminophen (Acetaminophen 325 Mg Tablet) 650 mg PO Q6H PRN PRN Reason: Fever/Mild Pain (1-3) Hydromorphone HCl (Hydromorphone 0.5 Mg Inj) 0.5 mg IV Q2H PRN PRN Reason: Pain, Severe (7-10) Potassium Chloride/Dextrose/Sod Cl (Dextrose 5%-0.45%Ns W/Kcl 20meq) 1,000 mls @ 100 mls/hr IV CONT [facility] Last Admin: 01/22/24 00:05 Dose: 100 mls/hr Documented By: CB Naloxone HCl (Naloxone 0.4 Mg/Ml Vial) 0.2 mg IV Q2MIN PRN PRN Reason: Opiate Reversal Ondansetron HCl (Ondansetron 4 Mg/2 Ml Inj) 4 mg IV Q8HR PRN PRN Reason: Nausea And Vomiting Pantoprazole Sodium (Pantoprazole 40 Mg Vial) 40 mg IV BID MELISSA Tamsulosin HCl (Tamsulosin 0.4 Mg Capsule) 0.8 mg PO BEDTIME [facility] Last Admin: 01/21/24 22:13 Dose: 0.8 mg Documented By: DAYRON Discontinued Medications Ondansetron HCl (Ondansetron 4 Mg/2 Ml Inj) 4 mg IV NOW PRN PRN Reason: Nausea And Vomiting Ondansetron HCl (Ondansetron 4 Mg Odt) 4 mg SL NOW PRN PRN Reason: Nausea And Vomiting Pantoprazole Sodium (Pantoprazole 40 Mg Vial) 80 mg IV NOW ONE Stop: 01/21/24 16:04 Last Admin: 01/21/24 17:18 Dose: 80 mg Documented By: ROCÍO Phytonadione (Phytonadione (Vit K1) 10 Mg/Ml Amp) 10 mg SUBCUT NOW ONE Stop: 01/21/24 21:01 Last Admin: 01/21/24 22:12 Dose: 10 mg Documented By: DAYRON Vital Signs Vital signs: Vital Signs - 8 hr 01/21/24 18:00 01/21/24 18:00 01/21/24 18:30 Pulse Rate 71 Respiratory Rate 15 Blood Pressure 116/57 L 122/57 L Pulse Oximetry 98 01/21/24 18:30 01/21/24 19:00 01/21/24 19:00 Pulse Rate 72 70 Respiratory Rate 17 14 Blood Pressure 132/64 Pulse Oximetry 100 99 MDM - Recheck/Abnormal Lab/Rx Lab Data Attestation: I reviewed the patient's lab results. 01/21/24 16:10 01/21/24 16:10 Labs: Lab Results 01/21/24 Range/Units 16:10 WBC 6.7 (4.5-11.0) X10^3/uL RBC 2.85 L (4.5-5.9) X10^6/uL Hgb 6.8 L* (13.5-17.5) g/dL Hct 21.1 L (41-53) % MCV 74.2 L (80-100) fL MCH 23.8 L (26-34) PG MCHC 32.0 (30-36) % RDW 20.9 H (11.6-14.8) % Plt Count 346 (150-400) X10^3/uL Neut % (Auto) 67.9 (50-75) % Lymph % (Auto) 16.7 L (25-40) % [place] % (Auto) 11.8 (3-14) % Eos % (Auto) 2.9 (2-4) % Baso % (Auto) 0.7 (0-2) % Neut # (Auto) 4600 (1134-0440) /uL Lymph # (Auto) 1100 (5058-6043) /uL [place] # (Auto) 800 (0-900) /uL Eos # (Auto) 200 (0-450) /uL Baso # (Auto) 0 (0-100) /uL RBC Morphology Normal morphology PT 25.5 H (9.4-12.5) SECONDS INR 2.2 H (0.9-1.3) APTT 37 H (25.1-36.5) SECONDS Sodium 137 (137-145) mmol/L Potassium 3.8 (3.4-5.1) mmol/L Chloride 108 H (98-107) mmol/L Carbon Dioxide 25 (22-32) mmol/L BUN 20 (9-20) mg/dL Creatinine 0.84 (0.66-1.25) mg/dL Estimated GFR > 60 (>60) mL/min BUN/Creatinine Ratio 23.8 H (6-22) Glucose 101 (80-110) mg/dL Calcium 8.4 (8.4-10.2) mg/dL Total Bilirubin 0.4 (0.2-1.3) mg/dL AST 22 (17-59) IU/L ALT 12 (<50) IU/L Alkaline Phosphatase 51 (38-126) U/L Total Protein 5.4 L (6.3-8.2) g/dL Albumin 3.1 L (3.5-5.0) g/dL Globulin 2.3 (1.7-4.1) g/dL Albumin/Globulin Ratio 1.3 (1.0-2.8) Blood Type A Positive Antibody Screen Positive Crossmatch See Detail ECG Data Attestation: I personally reviewed and interpreted this ECG as follows: Interpretation: Sinus rhythm Ventricular rate is 78 First-degree AV block NE interval 210 milliseconds Left axis deviation Normal QRS No ST T wave changes MDM Narrative Medical decision making narrative: Patient does have history of colon cancer. He has been having melena for the past several months. He is anemic today. I would consider him symptomatic given his dyspnea on exertion and fatigue. He has had a blood transfusion in the past. We discussed the risks and benefits of this and do feel that he would benefit from a blood transfusion. The patient agreed. I did discuss the case with Dr. Ford general surgeon on-call who agreed to see the patient after admission. Plan will be is to start with an upper endoscopy and if there were no abnormalities found then the patient could go through the prep for a colonoscopy. I then discussed the case with Dr. Amaya who is on-call for the patient's primary doctor who will admit. Discussed the need for admission with the patient. He expressed understanding and agreement as well. Discharge Plan Departure Patient Disposition: Admitted As Inpatient Clinical Impression: Acute GI bleeding Admit Date/Time: 01/21/24 19:02 Admit Provider: Valentin Amaya
[2024-01-21] MEDS: PHYTONADIONE (VIT K1) 10 MG/ML AMP SUBCUT (22:12)
[2024-01-21] MEDS: TAMSULOSIN 0.4 MG CAPSULE 0.8 MG PO (22:13)
[2024-01-22] VITALS (23 sets, daily range): BP systolic 99–142; BP diastolic 53–69; PULSE 50–94; RESP 12–18; TEMP 36.2–37; O2SAT 95–100
[2024-01-22] MEDS: DEXTROSE 5%-0.45NS W/KCL 20MEQ 1,000 ML 100 MEQ IV ×2 (00:05→18:05)
[2024-01-22 05:19] LABS: INR 1.8 (0.9-1.3); Prothrombin Time 20.4 SECONDS (9.4-12.5)
[2024-01-22 05:22] LABS: Hematocrit 19.2 % (41-53); Hemoglobin 6.2 g/dL (13.5-17.5)
[2024-01-22 05:24] LABS: BUN Creatinine Ratio 19.5 (6-22); Blood Urea Nitrogen 15 mg/dL (9-20); Calcium 8.1 mg/dL (8.4-10.2); Carbon Dioxide 25 mmol/L (22-32); Chloride 109 mmol/L (98-107); Estimated Glomerular Filt Rate > 60 mL/min (>60); Glucose 110 mg/dL (80-110); HEMOLYSIS < 15 (0-50); Potassium 3.8 mmol/L (3.4-5.1); Sodium 136 mmol/L (137-145)
--- NOTE | 2024-01-22 07:58 | P.HP_ITS ---
History of Present Illness History of Present Illness Date Patient Seen: 01/22/24 Time Patient Seen: 07:58 Chief complaint: Per pt Low Hemoglobin Narrative: 83-year-old male with a history of coronary artery disease with past myocardial infarction carotid artery disease with chronically occluded right internal create carotid artery cerebrovascular disease hypertension hyperlipidemia and BPH patient presents with gradually lowering hemoglobin hematocrit with increasing symptomatology of weakness and dizziness with standing. Patient states over the last few months he has had increasing dark colored stools. He is having bowel movements once or twice a day and noticed that they have changed color. He has not had bright red blood. But has noticed a dark colored blood. He said he had similar symptoms about 20 years ago where he had to be evaluated in the hospital for intestinal bleeding. He thinks it that time maybe he had a stomach ulcer. Patient has had fairly routine upper lower endoscopies his last [address] Rodriguez. Because of his ongoing issues with recent rectal bleeding he had a follow-up appointment with Dr. Arriaza here just a few days ago and had anticipated further evaluation. Patient is on anticoagulation with warfarin and Plavix because of his history of cerebrovascular accident carotid artery disease at the recommendation of his neurologist and eyeglass frames inspector. This morning he has no problems with headache has a little bit of dizziness he is up ambulating his last bowel movement was yesterday. Having no difficulty with urination he denies any significant stomach pain or abdominal distention. Having no fevers or chills lower extremity edema. [facility] Medical History Ischemic cardiomyopathy 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 infarction BPH w urinary obs/LUTS Neurological disease High blood pressure Anticoagulation goal of INR 2 to 3 Dark stools GERD (gastroesophageal reflux disease) Diverticular disease (2003) Foot pain (2013) Colorectal cancer (1990) Colon polyps (2009) Cataract Hearing loss (2012) Measles Rubella Guillain-[place] syndrome (~2001) 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 Peripheral neuropathy (2001) LV (left ventricular) mural thrombus (2016) Heart failure, diastolic (1996) Myocardial infarction (1996) CAD (coronary artery disease) Occipital cerebral infarction (09/06/17) 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 (09/06/17) Influenza B Scrotal swelling Epididymitis Diverticulitis large intestine Diverticulitis Surgical History History of hernia repair Anesthesia Status post coronary artery stent placement (01/2008) Status post tonsillectomy and adenoidectomy (2011) Status post colonoscopy (2012) Status post colectomy (1990) Family History Father Heart disease Colon cancer Hearing impairment Mother Stroke Heart disease Heart attack Social History marital status: number of children: 3 household members: spouse Smoking Status: Never smoker alcohol intake: never substance use type: does not use Meds Home Medications and Allergies Home Medications Medication Instructions Recorded Confirmed Type multivitamin (Multiple Vitamins 1 tab PO QDAY ##0 08/15/11 01/21/24 History tablet) omega 1-gpw-jgr-fish oil 1,000 mg 1,000 mg PO BID ##0 08/20/11 01/21/24 History (120 mg-180 mg) capsule (Fish Oil) rosuvastatin 10 mg tablet 10 mg PO QDAY ##0 09/02/17 01/21/24 History cholecalciferol (vitamin D3) 50 2,000 unit PO DAILY 06/25/18 01/21/24 History mcg (2,000 unit) capsule clopidogrel 75 mg tablet 75 mg PO DAILY #90 tabs 10/26/21 01/21/24 Rx ascorbic acid (vitamin C) 250 mg 250 mg PO DAILY #90 tabs 11/09/21 01/21/24 Rx tablet omeprazole 20 mg capsule,delayed 20 mg PO BID #0 caps 11/09/21 01/21/24 History release spironolactone 25 mg tablet 12.5 mg PO DAILY 08/30/22 01/21/24 History tamsulosin 0.4 mg capsule 0.8 mg (2 x 0.4 mg) PO BEDTIME 12/10/22 01/21/24 Rx #180 caps finasteride 5 mg tablet 5 mg PO DAILY #90 tabs 02/26/23 01/21/24 Rx warfarin 5 mg tablet 5 mg PO .COMPLEX #115 tabs 12/31/23 01/21/24 Rx losartan 50 mg tablet 75 mg PO DAILY 04/09/24 04/09/24 History metoprolol succinate 25 mg 25 mg PO BID 01/21/24 01/21/24 History tablet,extended release 24 hr Allergies Allergy/AdvReac Type Severity Reaction Status Date / Time Influenza Virus Vaccines Allergy Unknown Verified 07/05/23 09:30 [INFLUENZA VIRUS VACCINES] Exam Vital Signs (past 8 hours): - 01/22/24 00:00 01/22/24 04:00 01/22/24 07:54 Temperature 97.3 F L 97.5 F L Pulse Rate 50 L 71 Respiratory Rate 16 17 Blood Pressure 120/54 L 102/53 L Pulse Oximetry 95 96 96 Oxygen Delivery Method Room Air Oxygen Flow Rate 0 0 0 Oxygen Delivery Method Room Air Oxygen Flow Rate 0 Narrative Exam Narrative: Gen.: Alert and oriented x3 no apparent distress patient with signs of pallor HEENT: NCAT PERRLA tympanic membranes are clear nares are patent oral mucosa is moist no tonsillar hypertrophy neck is supple without lymphadenopathy no thyroid enlargement. Cardio: S1-S2 regular rate and rhythm no murmurs appreciated. Respiratory: Lungs are clear to auscultation no wheezes or crackles normal respiratory effort. Abdomen: Soft nontender no rebound or guarding no liver spleen enlargement no appreciable hernias Extremities: range of motion no appreciable weakness no cyanosis or edema. Neurologic: Grossly intact. Objective Labs 01/22/24 04:42 01/22/24 04:42 Labs: Laboratory Results - last 24 hr 01/21/24 01/22/24 16:10 04:42 WBC 6.7 RBC 2.85 L Hgb 6.8 L* 6.2 L* Hct 21.1 L 19.2 L* MCV 74.2 L MCH 23.8 L MCHC 32.0 RDW 20.9 H Plt Count 346 Neut % (Auto) 67.9 Lymph % (Auto) 16.7 L [place] % (Auto) 11.8 Eos % (Auto) 2.9 Baso % (Auto) 0.7 Neut # (Auto) 4600 Lymph # (Auto) 1100 [place] # (Auto) 800 Eos # (Auto) 200 Baso # (Auto) 0 RBC Morphology Normal morphology PT 25.5 H 20.4 H D INR 2.2 H 1.8 H APTT 37 H Sodium 137 136 L Potassium 3.8 3.8 Chloride 108 H 109 H Carbon Dioxide 25 25 BUN 20 15 Creatinine 0.84 0.77 Estimated GFR > 60 > 60 BUN/Creatinine Ratio 23.8 H 19.5 Glucose 101 110 Calcium 8.4 8.1 L Total Bilirubin 0.4 AST 22 ALT 12 Alkaline Phosphatase 51 Total Protein 5.4 L Albumin 3.1 L Globulin 2.3 Albumin/Globulin Ratio 1.3 Blood Type A Positive Antibody Screen Positive Crossmatch See Detail Assessment & Plan Assessment and plan (1) Anemia: Qualifiers: Anemia type: unspecified type Qualified Code(s): D64.9 - Anemia, unspecified Status: Acute (2) Acute GI bleeding: Status: Acute Plan Acute gastrointestinal bleed patient presents with melena progressive over the last few months. Presumed upper GI source. Patient on omeprazole 20 mg twice daily he is on double anticoagulation with warfarin and Plavix at the recommendation of his neurologist and eyeglass frames inspector. These 2 medications have been held. He is on high-dose proton pump inhibitor IV Protonix 40 mg twice daily and given a dose of 80 mg in the emergency department. General surgery has been consulted for evaluation of his upper and lower intestinal tract. His last bowel movement was yesterday his hemoglobin hematocrit is currently low but stable his vital signs are stable he was given vitamin K his INR is currently 1.8. Anticipate upper and lower endoscopy Acute blood loss anemia due to gastrointestinal bleeding. Patient's hemoglobin hematocrit is low. Patient has an auto antibody which is causing difficulty with finding appropriate blood cross and match. There is 1 unit available. Other blood products are currently not available and will be available later this afternoon. He has not received blood yet as he has currently not actively heavily bleeding and only had his lightheadedness and dizziness. Will wait until we have appropriate blood although we can emergency release blood if needed. Coronary artery disease history of myocardial infarction. Patient has recently had a stress test and an echocardiogram he has mildly reduced ejection fraction. He is on Crestor and metoprolol and normally on Plavix and warfarin which are coarse being held. He has no active angina symptoms such as chest pain shortness for breath he has a little bit dizzy due to his anemia. We will continue his beta-varghese and Crestor once he is tolerating his diet. Monitor for signs of coronary artery ischemia. Cerebrovascular accident remote history of cerebrovascular accident. Patient has some mild late effects with some mild aphasia but has good communication and understanding. He has on a statin and of course blood thinners which have been held. Carotid artery. Stenosis internal chronic and stable. BPH without a history of urinary obstruction patient on finasteride and Flomax. He has been continued on his Flomax and will restart his finasteride once things are stabilized. Hypertension blood pressure is currently stable. Hyperlipidemia patient on a statin Code status full code Disposition and plan 1 unit of packed red blood cells today once we have appropriate cross matched blood as he will need this. Upper and lower endoscopy as per General surgery Quality VTE Deep Vein Thrombosis/Pulmonary Embolism Present on Admission: No
[2024-01-22] MEDS: PANTOPRAZOLE 40 MG VIAL IV ×2 (08:17→21:44)
--- NOTE | 2024-01-22 09:04 | P.CONS_ITS ---
History of Present Illness Consult details Date Patient Seen: 01/22/24 Time Patient Seen: 09:04 Chief complaint: Per pt Low Hemoglobin Narrative: Cody Franco is an 83-year-old man who presented to the emergency department last night with anemia. He has had melena for several months now. He did see Dr. Gama recently who recommended an EGD and colonoscopy but it had not been scheduled yet. He does take Plavix and warfarin. He had a myocardial infarction proximally 5 years ago. His last colonoscopy was in 2018. He did have colon cancer approximately 20 years ago. Meds Home Medications and Allergies Home Medications Medication Instructions Recorded Confirmed Type multivitamin (Multiple Vitamins 1 tab PO QDAY ##0 08/15/11 01/21/24 History tablet) omega 9-elr-zuc-fish oil 1,000 mg 1,000 mg PO BID ##0 08/20/11 01/21/24 History (120 mg-180 mg) capsule (Fish Oil) rosuvastatin 10 mg tablet 10 mg PO QDAY ##0 09/02/17 01/21/24 History cholecalciferol (vitamin D3) 50 2,000 unit PO DAILY 06/25/18 01/21/24 History mcg (2,000 unit) capsule clopidogrel 75 mg tablet 75 mg PO DAILY #90 tabs 10/26/21 01/21/24 Rx ascorbic acid (vitamin C) 250 mg 250 mg PO DAILY #90 tabs 11/09/21 01/21/24 Rx tablet omeprazole 20 mg capsule,delayed 20 mg PO BID #0 caps 11/09/21 01/21/24 History release spironolactone 25 mg tablet 12.5 mg PO DAILY 08/30/22 01/21/24 History tamsulosin 0.4 mg capsule 0.8 mg (2 x 0.4 mg) PO BEDTIME 12/10/22 01/21/24 Rx #180 caps finasteride 5 mg tablet 5 mg PO DAILY #90 tabs 02/26/23 01/21/24 Rx warfarin 5 mg tablet 5 mg PO .COMPLEX #115 tabs 12/31/23 01/21/24 Rx losartan 50 mg tablet 75 mg PO DAILY 01/21/24 01/21/24 History metoprolol succinate 25 mg 25 mg PO BID 01/21/24 01/21/24 History tablet,extended release 24 hr Allergies Allergy/AdvReac Type Severity Reaction Status Date / Time Influenza Virus Vaccines Allergy Unknown Verified 07/05/23 09:30 [INFLUENZA VIRUS VACCINES] Exam Vital Signs (past 8 hours): - 01/22/24 04:00 01/22/24 07:54 01/22/24 08:00 Temperature 97.5 F L 97.4 F L Pulse Rate 71 76 Respiratory Rate 17 18 Blood Pressure 102/53 L 109/55 L Pulse Oximetry 96 96 96 Oxygen Delivery Method Room Air Oxygen Flow Rate 0 0 0 Oxygen Delivery Method Room Air Oxygen Flow Rate 0 Const General: No acute distress Resp Effort & Inspection: normal respiratory effort GI Palpation: soft Neuro General: patient alert and patient awake Objective Labs 01/22/24 04:42 01/22/24 04:42 Labs: Laboratory Results - last 24 hr 01/21/24 01/22/24 16:10 04:42 WBC 6.7 RBC 2.85 L Hgb 6.8 L* 6.2 L* Hct 21.1 L 19.2 L* MCV 74.2 L MCH 23.8 L MCHC 32.0 RDW 20.9 H Plt Count 346 Neut % (Auto) 67.9 Lymph % (Auto) 16.7 L Ray % (Auto) 11.8 Eos % (Auto) 2.9 Baso % (Auto) 0.7 Neut # (Auto) 4600 Lymph # (Auto) 1100 Ray # (Auto) 800 Eos # (Auto) 200 Baso # (Auto) 0 RBC Morphology Normal morphology PT 25.5 H 20.4 H D INR 2.2 H 1.8 H APTT 37 H Sodium 137 136 L Potassium 3.8 3.8 Chloride 108 H 109 H Carbon Dioxide 25 25 BUN 20 15 Creatinine 0.84 0.77 Estimated GFR > 60 > 60 BUN/Creatinine Ratio 23.8 H 19.5 Glucose 101 110 Calcium 8.4 8.1 L Total Bilirubin 0.4 AST 22 ALT 12 Alkaline Phosphatase 51 Total Protein 5.4 L Albumin 3.1 L Globulin 2.3 Albumin/Globulin Ratio 1.3 Blood Type A Positive Antibody Screen Positive Crossmatch See Detail [facility] Medical History Ischemic cardiomyopathy 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 infarction BPH w urinary obs/LUTS Neurological disease High blood pressure Anticoagulation goal of INR 2 to 3 Dark stools GERD (gastroesophageal reflux disease) Diverticular disease (2003) Foot pain (2013) Colorectal cancer (1990) Colon polyps (2009) Cataract Hearing loss (2012) Measles Rubella Guillain-[place] syndrome (~2001) 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 Peripheral neuropathy (2001) LV (left ventricular) mural thrombus (2016) Heart failure, diastolic (1996) Myocardial infarction (1996) CAD (coronary artery disease) Occipital cerebral infarction (09/06/17) 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 (09/06/17) Influenza B Scrotal swelling Epididymitis Diverticulitis large intestine Diverticulitis Surgical History History of hernia repair Anesthesia Status post coronary artery stent placement (01/2008) Status post tonsillectomy and adenoidectomy (2011) Status post colonoscopy (2012) Status post colectomy (1990) Family History Father Heart disease Colon cancer Hearing impairment Mother Stroke Heart disease Heart attack Social History marital status: number of children: 3 household members: spouse Tobacco & Substance Use Smoking Status: Never smoker alcohol intake: never substance use type: does not use Assessment & Plan Assessment and plan (1) Anemia: Qualifiers: Anemia type: unspecified type Qualified Code(s): D64.9 - Anemia, unspecified Status: Acute Plan Recommend we proceed with an EGD to rule out upper GI source of anemia. I will ask Dr. Rausch if he would be able to perform the procedure today. If no source of bleeding or anemia is discovered on EGD we could perform a colonoscopy tomorrow or Saturday. Recommend holding Coumadin and Plavix.
--- NOTE | 2024-01-22 11:19 | PC.NURSE ---
TAR NOTE - Unit of blood was given after issued time due to waiting for provider signature for emergency release. Three units of blood arrived on ice.
--- NOTE | 2024-01-22 12:28 | SUR.HOLD ---
Addendum entered by Cheyenne Gutierrez R.N. 01/22/24 12:30: See anesth record for VS Original Note: Pt to pre-op with 1st unit PRBC infusing. Completed. 2nd unit PRBC started. Blood in cooler on ice and BT 10 temp strip red.
--- NOTE | 2024-01-22 12:33 | P.OP.EGD_ITS ---
Operative Date/Time/Diagnoses Date of procedure: 01/22/24 Pre-op diagnosis: See indication and findings Procedure & Clinicians Study performed: EGD Indications: Melena anemia Surgeon: Roopa Quiñones Procedure Notes Procedure in detail: After informed consent was obtained the patient was placed in left lateral decub itus position. The video upper scope placed into the oropharynx and with the patient's help swallowed into the esophagus. The esophagus stomach and duodenum carefully examined. On withdrawal retroflexed view the GE junction was performed. The scope was removed. The patient tolerated procedure well. Blood loss none Complications none Sedation mac Findings 1. 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 No biopsies taken 2. Stomach grossly normal with no blood or contents present. 3. 5 cm paraesophageal hernia 4. Normal distal stomach 5. Normal duodenal bulb and sweep down to at least T3. Again, no blood or abnormal contents seen There appears to be no reason for GI bleed in his upper tract. Once stable should consider preparation for colonoscopy as he does have history of colon cancer in the past.
--- NOTE | 2024-01-22 13:14 | SUR.PHASEI ---
Report called to [facility].
--- NOTE | 2024-01-22 13:15 | PM.EVENT ---
Event Note Date Patient Seen: 01/22/24 Event Note (Rapid Response, Code, or fall): Since no source of GI bleeding was found on the EGD today we will proceed with a colonoscopy tomorrow afternoon. GoLYTELY prep has been ordered.
[2024-01-22] MEDS: BENZOCAINE/MENTHOL 1 LOZ PKT 1 EACH PO (13:17)
[2024-01-22] MEDS: PEG3350/SOD SULF,BICARB,CL/KCL 4,000 ML SOLUTION 4000 ML PO (15:29)
[2024-01-22 20:13] LABS: Hematocrit 28.6 % (41-53); Hemoglobin 9.2 g/dL (13.5-17.5)
[2024-01-22] MEDS: TAMSULOSIN 0.4 MG CAPSULE 0.8 MG PO (21:44)
[2024-01-23] VITALS (20 sets, daily range): BP systolic 89–139; BP diastolic 28–76; PULSE 66–92; RESP 16–20; TEMP 36.2–37.2; O2SAT 94–100
--- NOTE | 2024-01-23 03:08 | PC.NURSE ---
Noc Shift Note- Patient found out of bed with Right FA IV line pulled out, tele monitor pulled off, with pants around ankles and pulling toliet paper out of bathroom. Patient confused and impulsive. Patient states he woke up anmd didnt know where he was and got up out of bed and didnt know what to do. Patient claimed to have dirtied his pajama pants with stool cause of the golyetly. Helped patient take a shower and get on clean gown and pants. (No bowel movement seen.) Patient agree this time to have on the bed alarm on so we can help him when hes trying to get out of bedding.
[2024-01-23 05:28] LABS: Add Manual Diff / Slide Review NO; Basophils Absolute Auto 0 /uL (0-100); Basophils Percent Auto 0.5 % (0-2); Eosinophils Absolute Auto 100 /uL (0-450); Eosinophils Percent Auto 1.6 % (2-4); Hematocrit 26.3 % (41-53); Hemoglobin 8.6 g/dL (13.5-17.5); Lymphocytes Absolute Auto 500 /uL (1100-4500); Lymphocytes Percent Auto 10.6 % (25-40); Mean Corpuscular HGB Conc 32.5 % (30-36); Mean Corpuscular Hemoglobin 24.8 PG (26-34); Mean Corpuscular Volume 76.1 fL (80-100); Monocytes Absolute Auto 500 /uL (0-900); Monocytes Percent Auto 9.5 % (3-14); Neutrophils Absolute Auto 3900 /uL (1500-7000); Neutrophils Percent Auto 77.8 % (50-75); Platelet Count 320 X10^3/uL (150-400); Red Blood Cell Count 3.45 X10^6/uL (4.5-5.9); Red Cell Distribution Width 20.5 % (11.6-14.8); White Blood Cell Count 5.1 X10^3/uL (4.5-11.0)
[2024-01-23 05:37] LABS: INR 1.2 (0.9-1.3); Prothrombin Time 14.3 SECONDS (9.4-12.5)
[2024-01-23 05:45] LABS: BUN Creatinine Ratio 10.5 (6-22); Blood Urea Nitrogen 8 mg/dL (9-20); Calcium 8.5 mg/dL (8.4-10.2); Carbon Dioxide 26 mmol/L (22-32); Chloride 109 mmol/L (98-107); Estimated Glomerular Filt Rate > 60 mL/min (>60); Glucose 120 mg/dL (80-110); HEMOLYSIS < 15 (0-50); Potassium 3.9 mmol/L (3.4-5.1); Sodium 138 mmol/L (137-145)
[2024-01-23 05:59] LABS: Anisocytosis 2+; Macrocytosis 1+; Platelet Estimate Adequate on smear
[2024-01-23 06:00] LABS: Acanthocytes 1+; Schistocytes 1+
--- NOTE | 2024-01-23 08:38 | P.PN_ITS ---
Subjective Subjective Date Patient Seen: 01/23/24 Time Patient Seen: 08:53 Interval history: Patient seen and evaluated this morning discussed care with nursing staff. Patient had an episode of confusion last night in the hospital which she does not have at all he is alert and oriented this morning. Has done the bowel prep without difficulty. Not a lot of bright red blood. Upper endoscopy done yesterday showed no significant source of bleeding currently not active bleeding. Received 1 unit of packed red blood cells today. Discussed care with he and his . Exam Vital Signs (past 8 hours): - 01/23/24 04:00 01/23/24 08:00 Temperature 97.2 F L 97.6 F Pulse Rate 89 70 Respiratory Rate 20 19 Blood Pressure 116/60 125/66 Pulse Oximetry 96 99 Oxygen Flow Rate 0 0 Oxygen Delivery Method Room Air Oxygen Flow Rate 0 Narrative Exam Narrative: Gen.: Alert and oriented this morning no confusion HEENT: Pupils equal round and reactive or mucosa is moist neck is supple Cardio: S1-S2 regular rate and rhythm no murmurs appreciated. Respiratory: Normal respiratory effort Abdomen: Soft no distention Extremities: No edema Objective Labs 01/23/24 04:56 01/23/24 04:56 Labs: Laboratory Results - last 24 hr 01/21/24 01/22/24 01/23/24 16:10 20:05 04:56 WBC 5.1 RBC 3.45 L Hgb 9.2 L 8.6 L Hct 28.6 L 26.3 L MCV 76.1 L MCH 24.8 L MCHC 32.5 RDW 20.5 H Plt Count 320 Neut % (Auto) 77.8 H Lymph % (Auto) 10.6 L [place] % (Auto) 9.5 Eos % (Auto) 1.6 L Baso % (Auto) 0.5 Neut # (Auto) 3900 Lymph # (Auto) 500 L [place] # (Auto) 500 Eos # (Auto) 100 Baso # (Auto) 0 Platelet Estimate Adequate on smear RBC Morphology See below Anisocytosis 2+ H Macrocytosis 1+ H Acanthocytes (Spur) 1+ Schistocytes 1+ H PT 14.3 H D INR 1.2 Sodium 138 Potassium 3.9 Chloride 109 H Carbon Dioxide 26 BUN 8 L Creatinine 0.76 Estimated GFR > 60 BUN/Creatinine Ratio 10.5 Glucose 120 H Calcium 8.5 Blood Type A Positive Antibody Screen Positive Antibody Identification Warm Auto Antibody Crossmatch See Detail [facility] Medical History Ischemic cardiomyopathy 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 infarction BPH w urinary obs/LUTS Neurological disease High blood pressure Anticoagulation goal of INR 2 to 3 Dark stools GERD (gastroesophageal reflux disease) Diverticular disease (2003) Foot pain (2013) Colorectal cancer (1990) Colon polyps (2009) Cataract Hearing loss (2012) Measles Rubella Guillain-[place] syndrome (~2001) 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 Peripheral neuropathy (2001) LV (left ventricular) mural thrombus (2016) Heart failure, diastolic (1996) Myocardial infarction (1996) CAD (coronary artery disease) Occipital cerebral infarction (09/06/17) 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 (09/06/17) Influenza B Scrotal swelling Epididymitis Diverticulitis large intestine Diverticulitis Surgical History History of hernia repair Anesthesia Status post coronary artery stent placement (01/2008) Status post tonsillectomy and adenoidectomy (2011) Status post colonoscopy (2012) Status post colectomy (1990) Family History Father Heart disease Colon cancer Hearing impairment Mother Stroke Heart disease Heart attack Social History marital status: number of children: 3 household members: spouse Smoking Status: Never smoker alcohol intake: never substance use type: does not use Assessment & Plan Assessment and plan (1) Acute GI bleeding: Status: Acute Plan Acute gastrointestinal bleed patient presents with melena progressive over the last few months. Upper endoscopy done yesterday no signs of active bleeding. Little bit surprising. As he had dark red blood. Bowel prep last night. Anticipate colonoscopy appreciate consultation of General surgery and GI. Acute blood loss anemia due to gastrointestinal bleeding. Patient received 1 unit of packed red blood cells yesterday. Hemoglobin hematocrit stable but still low. No signs of current active bleeding will continue to monitor may need 1 more unit of packed red blood cells. Feraheme infusion today as he is got macrocytic anemia he has had ongoing blood loss it looks like for a number of months I am sure he is iron deficient as his MCV is low. Transfusion risk warm agglutinin. Tolerated blood transfusion yesterday without any significant signs of hemolysis or transfusion reaction. Will continue to closely monitor his bleeding may need an additional unit of packed red blood cells Coronary artery disease history of myocardial infarction. No signs of active coronary artery disease no chest pain no significant shortness of breath. Cerebrovascular accident remote history of cerebrovascular accident. History of some mild aphasia. He is off his anticoagulation and his Plavix. We will make a determination on what to do once we have further information of his evaluation of his endoscopic. Carotid artery. Stenosis internal chronic and stable. BPH without a history of urinary obstruction patient on finasteride and Flomax. He has been continued on his Flomax and will restart his finasteride once things are stabilized. Hypertension blood pressure is currently stable. Hyperlipidemia patient on a statin Code status full code Lower scope today. Recheck hemoglobin hematocrit discussion of further packed red blood cells with patient today. He is microcytic anemia will probably need iron infusions before discharge on oral iron at home. Quality VTE Deep Vein Thrombosis/Pulmonary Embolism Present on Admission: No
[2024-01-23] MEDS: LOSARTAN 50 MG TABLET 75 MG PO (10:22)
[2024-01-23] MEDS: METOPROLOL ER 25 MG TABLET PO ×2 (10:24→20:53)
[2024-01-23] MEDS: PANTOPRAZOLE 40 MG VIAL IV ×2 (10:25→20:54)
[2024-01-23] MEDS: ferumoxytoL 1,020 MG in SODIUM CHLORIDE 0.9% 250 ML 568 MG IV (10:25)
--- NOTE | 2024-01-23 16:27 | PC.NURSE ---
Addendum entered by Loretta Segura R.N. 01/24/24 07:45: patient left floor at 1617 for procedure Addendum entered by Loretta Segura R.N. 01/23/24 18:56: Patient returned from PACU this evening at approximately 1800. A&OX4. Denies pain. VSS, afebrile. Continuous monitoring. Original Note: Patient left the floor at 1417 for colonoscopy procedure.
--- NOTE | 2024-01-23 17:03 | PM.PREOP ---
Pre-operative Note COVID-19 COVID-19 status: Not tested Interval Note History & Physical reviewed/Exam performed by Physician: Yes Changes to H&P: No H&P completed within 30 days and has changed as indicated here:: We reviewed the risks and benefits of colonoscopy for anemia and he would like to proceed. ASA Class (for procedural sedation): III
--- NOTE | 2024-01-23 17:34 | PM.OP.COLON ---
Operative Date/Time/Diagnoses Date of procedure: 01/23/24 Time of procedure: 17:34 Pre-op diagnosis: Anemia Post-op diagnosis: same Procedure & Clinicians Study performed: Colonoscopy Same procedure as scheduled: Yes Surgeon: Jw Ford Procedure Notes Procedure in detail: Surgeon: Jw Ford MD Anesthesia: Dorie White DO Procedure: The patient was brought to the endoscopy suite, placed in left lateral decubitus position. The patient was connected to monitoring devices. A time-out was performed. Sedation was administered. Once the patient was adequately sedated, a digital rectal exam was performed and was normal. The scope was then inserted and advanced to the c anastomosis which was photographed. The scope was then slowly withdrawn. The mucosa was thoroughly inspected. There was significant diverticulosis greatest in the sigmoid colon. No source of bleeding was identified. No polyps were identified. The scope was retroflexed in the rectum. No other abnormalities were identified. The scope was straightened and removed. The patient was awakened and brought to recovery. Scope withdrawal time: 4 minutes Sedation time: 14 minutes EBL: 0 Findings: Extensive diverticulosis with no source of bleeding identified Post-procedure Disposition: PACU
[2024-01-23] MEDS: LACTATED RINGERS 500 ML 120 ML IV (18:49)
[2024-01-23] MEDS: TAMSULOSIN 0.4 MG CAPSULE 0.8 MG PO (20:54)
[2024-01-24 06:12] LABS: Add Manual Diff / Slide Review NO; Basophils Absolute Auto 0 /uL (0-100); Basophils Percent Auto 0.9 % (0-2); Eosinophils Absolute Auto 300 /uL (0-450); Hematocrit 27.5 % (41-53); Hemoglobin 8.9 g/dL (13.5-17.5); INR 1.2 (0.9-1.3); Lymphocytes Absolute Auto 1100 /uL (1100-4500); Lymphocytes Percent Auto 19.6 % (25-40); Mean Corpuscular HGB Conc 32.3 % (30-36); Mean Corpuscular Hemoglobin 24.8 PG (26-34); Mean Corpuscular Volume 76.7 fL (80-100); Monocytes Absolute Auto 600 /uL (0-900); Monocytes Percent Auto 10.1 % (3-14); Neutrophils Absolute Auto 3800 /uL (1500-7000); Neutrophils Percent Auto 64.4 % (50-75); Platelet Count 327 X10^3/uL (150-400); Prothrombin Time 13.6 SECONDS (9.4-12.5); Red Blood Cell Count 3.58 X10^6/uL (4.5-5.9); White Blood Cell Count 5.8 X10^3/uL (4.5-11.0)
[2024-01-24 06:16] LABS: BUN Creatinine Ratio 5.1 (6-22); Blood Urea Nitrogen 4 mg/dL (9-20); Carbon Dioxide 25 mmol/L (22-32); Chloride 109 mmol/L (98-107); Estimated Glomerular Filt Rate > 60 mL/min (>60); Glucose 106 mg/dL (80-110); HEMOLYSIS < 15 (0-50); Potassium 3.8 mmol/L (3.4-5.1); Sodium 137 mmol/L (137-145)
[2024-01-24 06:41] VITALS: BP 115/63; PULSE 71; RESP 16; TEMP 36.4; O2SAT 98
[2024-01-24 06:45] LABS: Anisocytosis 2+; Macrocytosis 1+
[2024-01-24 06:46] LABS: Schistocytes 1+
[2024-01-24 07:00] VITALS: O2SAT 97
[2024-01-24 07:36] VITALS: BP 130/62; PULSE 74; RESP 20; TEMP 36.4; O2SAT 97
[2024-01-24 08:19] VITALS: BP 130/62; PULSE 74
[2024-01-24] MEDS: METOPROLOL ER 25 MG TABLET PO (08:19)
[2024-01-24 08:20] VITALS: BP 130/62; PULSE 74
[2024-01-24] MEDS: LOSARTAN 50 MG TABLET 75 MG PO (08:20)
--- NOTE | 2024-01-24 09:19 | P.DS_ITS ---
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 Patient states over the last few months he has had increasing dark colored stools. He is having bowel movements once or twice a day and noticed that they have changed color. He has not had bright red blood. But has noticed a dark colored blood. He said he had similar symptoms about 20 years ago where he had to be evaluated in the hospital for intestinal bleeding. He thinks it that time maybe he had a stomach ulcer. Patient has had fairly routine upper lower endoscopies his last [address] Rodriguez. Because of his ongoing issues with recent rectal bleeding he had a follow-up appointment with Dr. Arriaza here just a few days ago and had anticipated further evaluation. Patient is on anticoagulation with warfarin and Plavix because of his history of cerebrovascular accident carotid artery disease at the recommendation of his neurologist and labor relations representative. This morning he has no problems with headache has a little bit of dizziness he is up ambulating his last bowel movement was yesterday. Having no difficulty with urination he denies any significant stomach pain or abdominal distention. Having no fevers or chills lower extremity edema. Discharge Providers Provider Date of admission: 01/21/24 19:02 Discharge Date: 01/24/24 Primary care physician: Amandeep Olson MD Consults: 01/21/24 18:57 Consult to General Surgery Stat Comment: Consulting Provider: Jw Ford Reason for consultation: GI bleed Has provider been notified: Yes 01/21/24 19:01 Consult to Physician Stat Comment: Consulting Provider: Amandeep Olson Reason for consultation: GI bleed Has provider been notified: No 01/21/24 21:00 Consult to Discharge Planning Routine Comment: Discharge provider: Amandeep Olson MD Summary Hospital Course Hospital Course: Acute gastrointestinal bleed patient was kept NPO during his hospital stay. Patient had upper endoscopy which revealed no source of bleeding. Patient underwent a bowel prep and had lower colonoscopy which showed diverticular disease without significant bleeding. Patient did not have significant volume of bleeding per rectum or upper during this hospital stay. During his hospital stay his warfarin was stopped his INR was reversed with vitamin K and his Plavix was stopped. The time of discharge his hemoglobin hematocrit was stable. During his hospital stay he received 1 unit of packed red blood cells as well as an iron infusion. No source of bleeding was found. Potential diverticular small bowel. Will continue to follow as outpatient. If he continues to have decreased hemoglobin hematocrit and dark stools would recommend capsule study. Acute blood loss anemia patient received 1 unit of packed red blood cells during the hospital as well as an iron infusion. At the time of discharge his hemoglobin hematocrit was stable his vital signs were stable and patient's blood pressure was normal Transfusion risk warm agglutinin. Patient transfused with appropriate cross matched blood. Patient had no transfusion reaction during his hospital stay. Coronary artery disease history of myocardial infarction. No active coronary artery events during his hospital stay. Patient had no chest pain. He was placed on his metoprolol he will go home on his metoprolol and Crestor. Patient has a history of vent trickle thrombus x2 and was on warfarin and Plavix. Patient will have holding of these medications for at least 6 weeks in the outpatient. Discussed with risks of reaccumulation of that thrombus. But the benefits of stopping his anticoagulation at this time outweigh the risks. At 6 weeks if things are stable we would reintroduce his anticoagulation. Cerebrovascular accident remote history of cerebrovascular accident. History of some mild aphasia. Continue with blood pressure statin. Off anticoagulation including Plavix and warfarin. Carotid artery Stenosis internal chronic and stable. No further evaluation in the hospital BPH without a history of urinary obstruction patient on finasteride and Flomax. Patient will continue these medications at home. No urinary difficulties in the hospital Hypertension continue on discharge Hyperlipidemia continue on discharge Home today with follow-up in 1 week Exam Vital Signs (past 8 hours): - 01/24/24 06:41 01/24/24 07:00 01/24/24 07:36 Temperature 97.6 F 97.5 F L Pulse Rate 71 74 Respiratory Rate 16 20 Blood Pressure 115/63 130/62 Pulse Oximetry 98 97 97 Oxygen Delivery Method Room Air Oxygen Flow Rate 0 0 01/24/24 08:19 01/24/24 08:20 Temperature Pulse Rate 74 74 Respiratory Rate Blood Pressure 130/62 130/62 Pulse Oximetry Oxygen Delivery Method Oxygen Flow Rate Oxygen Delivery Method Room Air Oxygen Flow Rate 0 Objective Labs 01/24/24 05:30 01/24/24 05:30 Labs: Laboratory Results - last 24 hr 01/24/24 05:30 WBC 5.8 RBC 3.58 L Hgb 8.9 L Hct 27.5 L MCV 76.7 L MCH 24.8 L MCHC 32.3 RDW 21.0 H Plt Count 327 Neut % (Auto) 64.4 Lymph % (Auto) 19.6 L [place] % (Auto) 10.1 Eos % (Auto) 5.0 H Baso % (Auto) 0.9 Neut # (Auto) 3800 Lymph # (Auto) 1100 [place] # (Auto) 600 Eos # (Auto) 300 Baso # (Auto) 0 RBC Morphology See below Anisocytosis 2+ H Macrocytosis 1+ H Schistocytes 1+ H PT 13.6 H INR 1.2 Sodium 137 Potassium 3.8 Chloride 109 H Carbon Dioxide 25 BUN 4 L Creatinine 0.79 Estimated GFR > 60 BUN/Creatinine Ratio 5.1 L Glucose 106 Calcium 9.0 PFSH Medical History Ischemic cardiomyopathy 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 infarction BPH w urinary obs/LUTS Neurological disease High blood pressure Anticoagulation goal of INR 2 to 3 Dark stools GERD (gastroesophageal reflux disease) Diverticular disease (2003) Foot pain (2013) Colorectal cancer (1990) Colon polyps (2009) Cataract Hearing loss (2012) Measles Rubella Guillain-Warner syndrome (~2001) 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 Peripheral neuropathy (2001) LV (left ventricular) mural thrombus (2016) Heart failure, diastolic (1996) Myocardial infarction (1996) CAD (coronary artery disease) Occipital cerebral infarction (09/06/17) 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 (09/06/17) Influenza B Scrotal swelling Epididymitis Diverticulitis large intestine Diverticulitis Surgical History History of hernia repair Anesthesia Status post coronary artery stent placement (01/2008) Status post tonsillectomy and adenoidectomy (2011) Status post colonoscopy (2012) Status post colectomy (1990) Family History Father Heart disease Colon cancer Hearing impairment Mother Stroke Heart disease Heart attack Social History marital status: number of children: 3 household members: spouse Smoking Status: Never smoker alcohol intake: never substance use type: does not use Discharge Plan Discharge Plan Patient Disposition: Home Provider Discharge Comment: Follow-up Dr. Olson in 7-10 days Discharge orders & Medications Prescriptions: New ferrous sulfate 325 mg (65 mg iron) tablet 325 mg PO DAILY Qty: 90 0RF Continued ascorbic acid (vitamin C) 250 mg tablet 250 mg PO DAILY Qty: 90 3RF spironolactone 25 mg tablet 12.5 mg PO DAILY multivitamin [Multiple Vitamins] 1 EACH tablet 1 tab PO QDAY Qty: 0 omega 0-[id number]-fish oil [Fish Oil] 1,000 MG capsule 1,000 mg PO BID Qty: 0 rosuvastatin 10 MG tablet 10 mg PO QDAY Qty: 0 tamsulosin 0.4 mg capsule 0.8 mg PO BEDTIME Qty: 180 3RF cholecalciferol (vitamin D3) 2,000 unit capsule 2,000 unit PO DAILY losartan 50 mg tablet 75 mg PO DAILY metoprolol succinate 25 mg tablet extended release 24 hr 25 mg PO BID finasteride 5 mg tablet 5 mg PO DAILY Qty: 90 3RF Changed omeprazole 20 mg capsule,delayed release(DR/EC) 20 mg PO DAILY Qty: 30 0RF Discontinued clopidogrel 75 mg tablet 75 mg PO DAILY Qty: 90 3RF warfarin 5 mg tablet 5 mg PO .COMPLEX Qty: 115 3RF Rx Instructions: 5 mg orally Take 5mg. (1 tab) Saturday and Saturday and all other days take 7.5mg. (1 1/2 tabs); Follow up/Referrals: Amandeep Olson MD [Primary Care Provider] - Visit Report/Discharge Packet Stand Alone Forms: Patient Portal/API, Stroke Signs & Symptoms Discharge Data Primary Care Provider: Amandeep Olson Quality VTE Deep Vein Thrombosis/Pulmonary Embolism Present on Admission: No
--- NOTE | 2024-01-24 10:41 | PM.DS.1 ---
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 Patient states over the last few months he has had increasing dark colored stools. He is having bowel movements once or twice a day and noticed that they have changed color. He has not had bright red blood. But has noticed a dark colored blood. He said he had similar symptoms about 20 years ago where he had to be evaluated in the hospital for intestinal bleeding. He thinks it that time maybe he had a stomach ulcer. Patient has had fairly routine upper lower endoscopies his last [address] Rodriguez. Because of his ongoing issues with recent rectal bleeding he had a follow-up appointment with Dr. Arriaza here just a few days ago and had anticipated further evaluation. Patient is on anticoagulation with warfarin and Plavix because of his history of cerebrovascular accident carotid artery disease at the recommendation of his neurologist and credit administration officer. This morning he has no problems with headache has a little bit of dizziness he is up ambulating his last bowel movement was yesterday. Having no difficulty with urination he denies any significant stomach pain or abdominal distention. Having no fevers or chills lower extremity edema. Discharge Providers Provider Date of admission: 01/21/24 19:02 Discharge Date: 02/05/24 Primary care physician: Amandeep Olson MD Consults: 01/21/24 18:57 Consult to General Surgery Stat Comment: Consulting Provider: Jw Ford Reason for consultation: GI bleed Has provider been notified: Yes 01/21/24 19:01 Consult to Physician Stat Comment: Consulting Provider: Amandeep Olson Reason for consultation: GI bleed Has provider been notified: No 01/21/24 21:00 Consult to Discharge Planning Routine Comment: Discharge provider: Amandeep Olson MD Exam Vital Signs (past 8 hours): - 01/24/24 06:41 01/24/24 07:00 01/24/24 07:36 Temperature 97.6 F 97.5 F L Pulse Rate 71 74 Respiratory Rate 16 20 Blood Pressure 115/63 130/62 Pulse Oximetry 98 97 97 Oxygen Delivery Method Room Air Oxygen Flow Rate 0 0 01/24/24 08:19 01/24/24 08:20 Temperature Pulse Rate 74 74 Respiratory Rate Blood Pressure 130/62 130/62 Pulse Oximetry Oxygen Delivery Method Oxygen Flow Rate Oxygen Delivery Method Room Air Oxygen Flow Rate 0 Objective Labs 01/24/24 05:30 01/24/24 05:30 Labs: Laboratory Results - last 24 hr 01/24/24 05:30 WBC 5.8 RBC 3.58 L Hgb 8.9 L Hct 27.5 L MCV 76.7 L MCH 24.8 L MCHC 32.3 RDW 21.0 H Plt Count 327 Neut % (Auto) 64.4 Lymph % (Auto) 19.6 L [place] % (Auto) 10.1 Eos % (Auto) 5.0 H Baso % (Auto) 0.9 Neut # (Auto) 3800 Lymph # (Auto) 1100 [place] # (Auto) 600 Eos # (Auto) 300 Baso # (Auto) 0 RBC Morphology See below Anisocytosis 2+ H Macrocytosis 1+ H Schistocytes 1+ H PT 13.6 H INR 1.2 Sodium 137 Potassium 3.8 Chloride 109 H Carbon Dioxide 25 BUN 4 L Creatinine 0.79 Estimated GFR > 60 BUN/Creatinine Ratio 5.1 L Glucose 106 Calcium 9.0 PFSH Medical History Ischemic cardiomyopathy 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 infarction BPH w urinary obs/LUTS Neurological disease High blood pressure Anticoagulation goal of INR 2 to 3 Dark stools GERD (gastroesophageal reflux disease) Diverticular disease (2003) Foot pain (2013) Colorectal cancer (1990) Colon polyps (2009) Cataract Hearing loss (2012) Measles Rubella Guillain-Rice syndrome (~2001) 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 Peripheral neuropathy (2001) LV (left ventricular) mural thrombus (2016) Heart failure, diastolic (1996) Myocardial infarction (1996) CAD (coronary artery disease) Occipital cerebral infarction (09/06/17) 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 (09/06/17) Influenza B Scrotal swelling Epididymitis Diverticulitis large intestine Diverticulitis Surgical History History of hernia repair Anesthesia Status post coronary artery stent placement (01/2008) Status post tonsillectomy and adenoidectomy (2011) Status post colonoscopy (2012) Status post colectomy (1990) Family History Father Heart disease Colon cancer Hearing impairment Mother Stroke Heart disease Heart attack Social History marital status: number of children: 3 household members: spouse Smoking Status: Never smoker alcohol intake: never substance use type: does not use Discharge Plan Discharge Plan Patient Disposition: Home Provider Discharge Comment: Follow-up Dr. Olson in 7-10 days Discharge orders & Medications Prescriptions: New ferrous sulfate 325 mg (65 mg iron) tablet 325 mg PO DAILY Qty: 90 0RF Continued ascorbic acid (vitamin C) 250 mg tablet 250 mg PO DAILY Qty: 90 3RF spironolactone 25 mg tablet 12.5 mg PO DAILY multivitamin [Multiple Vitamins] 1 EACH tablet 1 tab PO QDAY Qty: 0 omega 3-ynm-kmr-fish oil [Fish Oil] 1,000 MG capsule 1,000 mg PO BID Qty: 0 rosuvastatin 10 MG tablet 10 mg PO QDAY Qty: 0 tamsulosin 0.4 mg capsule 0.8 mg PO BEDTIME Qty: 180 3RF cholecalciferol (vitamin D3) 2,000 unit capsule 2,000 unit PO DAILY losartan 50 mg tablet 75 mg PO DAILY metoprolol succinate 25 mg tablet extended release 24 hr 25 mg PO BID finasteride 5 mg tablet 5 mg PO DAILY Qty: 90 3RF Changed omeprazole 20 mg capsule,delayed release(DR/EC) 20 mg PO DAILY Qty: 30 0RF Discontinued clopidogrel 75 mg tablet 75 mg PO DAILY Qty: 90 3RF warfarin 5 mg tablet 5 mg PO .COMPLEX Qty: 115 3RF Rx Instructions: 5 mg orally Take 5mg. (1 tab) Saturday and Saturday and all other days take 7.5mg. (1 1/2 tabs); Follow up/Referrals: Amandeep Olson MD [Primary Care Provider] - Visit Report/Discharge Packet Stand Alone Forms: Patient Portal/API, Stroke Signs & Symptoms Discharge Data Primary Care Provider: Amandeep Olson Quality VTE Deep Vein Thrombosis/Pulmonary Embolism Present on Admission: No
--- NOTE | 2024-01-24 11:08 | PC.NURSE ---
Patient is A&OX3 this a.m. He had dressed himself and taken his own IV out this a.m. in anticipation for discharge. He tolerates breakfast well. VSS, afebrile on RA, no further BM's this a.m. or s/sx of bleeding. MD Olson clears patient for discharge and patient verbalizes understanding of stopping anticoagualants, starting iron supplements and continuing to take omeprazole daily. He is escorted by FREIGHT INSPECTOR to private vehicle with his and all of his belongings at 11 a.m. this a.m. for discharge home.
--- NOTE | 2024-01-24 14:33 | CM.DANOTE ---
Initial DCP Assessment Note Pt is an 83 yo male, resident of [place], arrived with GI bleed, anemia, suspected upper source. Upper and lower scope showed no source of the bleeding. Patient discharged home and eager to return home w/spouse. PCP: Lyndon Goodrich Payer: Chay ANDERSON Reviewed chart, pt discussed in multidisciplinary rounds this morning. Patient denies needs from CM team, indp in all aspects, eager to return home. No barriers identified at this time to patient's safe discharge home w/family to assist; close outpatient f/u recommended. SHAMIKA Gary Discharge Planning/Care Management CM Discharge Assessment Start: 01/24/24 14:22 Freq: Status: Discharge Protocol: Document 01/24/24 14:22 KASEY (Rec: 01/24/24 14:33 KASEY [id number]) Discharge Planning Assessment Assigned Demonstrator [employer] SHAMIKA Mckoy DPOA/Assigned Designee Name Kat Franco, spouse Contact Information [phone] Advance Directives? Yes Advance Directives on File Yes: states DNR History Provided By Patient Prior Living Arrangements House Household Members spouse Type of transporation used prior to Drives own vehicle admit Independent with ADL's Yes Is patient alert and oriented? Yes Barriers to Discharge No Discharge Plan Home Transportation Arrangement Family Referrals Initiated None needed
== END 2024-01-24 11:00 | disposition home or self-care (01) | DRG 378 ==
LOC: ED 19:02 → AC 19:02
PROVIDERS: Emergency Medicine; Internal Medicine Gastroenterology; Surgery; Admitting Provider Internal Medicine; Emergency Provider Emergency Medicine; Family Provider Family Medicine; PCP Family Medicine; Referring Provider Emergency Medicine; Visit Provider Family Medicine
PROC: 0DJ08ZZ Inspection of Upper Intestinal Tract, Via Natural or Artificial Opening Endoscopic (ICD-10-PCS; CPT 43235; principal; 2024-01-22 09:30)
PROC: 0DJD8ZZ Inspection of Lower Intestinal Tract, Via Natural or Artificial Opening Endoscopic (ICD-10-PCS; CPT 45378; principal; 2024-01-23 16:30)
DX: K92.1 Melena (principal); D62 Acute posthemorrhagic anemia; I25.10 Atherosclerotic heart disease of native coronary artery without angina pectoris; I25.2 Old myocardial infarction; I10 Essential (primary) hypertension; E78.5 Hyperlipidemia, unspecified; I65.21 Occlusion and stenosis of right carotid artery; Z79.01 Long term (current) use of anticoagulants; Z79.02 Long term (current) use of antithrombotics/antiplatelets; I25.5 Ischemic cardiomyopathy; Z85.038 Personal history of other malignant neoplasm of large intestine; Z86.010 Personal history of colon polyps; Z86.73 Personal history of transient ischemic attack (TIA), and cerebral infarction without residual deficits; K57.90 Diverticulosis of intestine, part unspecified, without perforation or abscess without bleeding; Z82.49 Family history of ischemic heart disease and other diseases of the circulatory system; Z80.0 Family history of malignant neoplasm of digestive organs; Z82.3 Family history of stroke; K21.9 Gastro-esophageal reflux disease without esophagitis; Z88.7 Allergy status to serum and vaccine; N40.1 Benign prostatic hyperplasia with lower urinary tract symptoms; K44.9 Diaphragmatic hernia without obstruction or gangrene; Z86.16 Personal history of COVID-19
CPT/HCPCS: 36415; 36430; 45378; 80048; 80053; 81003; 85014; 85018; 85025; 85610; 85730; 86850; 86860; 86870; 86880; 86900; 86901; 86905; 86906; 93005; 93010; 96374; 99232; 99233; 99238; 99284; P9016; C9113; J2704; J3430; Q0138

== ENCOUNTER → 2024-01-29 06:58 | Outpatient (CLI) | payer MEDICARE, SELFPAY ==
[2024-01-21 20:36] VITALS: BMI 28.3
[2024-01-29 08:25] LABS: Cholesterol 96 mg/dL (140-199); HDL Cholesterol 31 mg/dL (40-60); LDL Cholesterol Calculated 49 mg/dL (<100); Triglycerides 79 mg/dL (35-150)
[2024-01-29 08:34] LABS: Add Manual Diff / Slide Review NO; Basophils Absolute Auto 0 /uL (0-100); Basophils Percent Auto 0.4 % (0-2); Eosinophils Absolute Auto 100 /uL (0-450); Hematocrit 28.6 % (41-53); Hemoglobin 9.2 g/dL (13.5-17.5); Lymphocytes Absolute Auto 900 /uL (1100-4500); Lymphocytes Percent Auto 10.6 % (25-40); Mean Corpuscular HGB Conc 32.3 % (30-36); Mean Corpuscular Volume 80.4 fL (80-100); Monocytes Absolute Auto 800 /uL (0-900); Monocytes Percent Auto 8.6 % (3-14); Neutrophils Absolute Auto 7100 /uL (1500-7000); Neutrophils Percent Auto 79.4 % (50-75); Platelet Count 276 X10^3/uL (150-400); Red Blood Cell Count 3.56 X10^6/uL (4.5-5.9); Red Cell Distribution Width 26.4 % (11.6-14.8); White Blood Cell Count 8.9 X10^3/uL (4.5-11.0)
[2024-01-29 08:35] LABS: Reticulocyte Count, Percent 5.8 % (0.9-2.6)
[2024-01-29 09:00] LABS: Anisocytosis 2+; Schistocytes 1+
== END ==
LOC: LAB 07:00
PROVIDERS: Specialist; Family Provider Family Medicine; PCP Family Medicine; Referring Provider Internal Medicine Cardiovascular Disease; Visit Provider Internal Medicine Cardiovascular Disease
DX: D50.0 Iron deficiency anemia secondary to blood loss (chronic) (principal); R97.20 Elevated prostate specific antigen [PSA]; E78.5 Hyperlipidemia, unspecified
CPT/HCPCS: 36415; 80061; 84153; 85025; 85045

== ENCOUNTER → 2024-01-31 13:51 | Outpatient (CLI) | payer MEDICARE, SELFPAY ==
[2024-01-21 20:36] VITALS: BMI 28.3
[2024-02-03 20:34] LABS: Fecal Immunochemical Test Positive (Negative)
== END ==
PROVIDERS: Family Provider Family Medicine; PCP Family Medicine; Referring Provider Family Medicine; Visit Provider Family Medicine
DX: Z12.11 Encounter for screening for malignant neoplasm of colon (principal)
CPT/HCPCS: 82274

== ENCOUNTER → 2024-02-14 13:28 | Outpatient (CLI) | payer MEDICARE, SELFPAY ==
[2024-01-21 20:36] VITALS: BMI 28.3
--- NOTE | 2024-02-14 13:30 | DI.RAD.S_ITS ---
PROCEDURE: XR CHEST 2V INDICATIONS: Persistent cough since December 2023 TECHNIQUE: 2 views of the chest were acquired. COMPARISON: [facility], , CHEST 1 VIEW, 09/02/2017, 16:49. FINDINGS: Surgical changes and devices: None. Lungs and pleura: Lungs are clear. No pleural effusions or pneumothorax. Mediastinum: Mediastinal contours are normal. Heart size is normal. Aortic arch is calcified and descending thoracic aorta is tortuous, indicating atherosclerosis. Bones and chest wall: No suspicious bony abnormalities. Soft tissues appear unremarkable. Degenerative changes of the spine. IMPRESSION: No acute cardiopulmonary process. Dictated by: Kale Bass M.D. on 02/14/2024 at 14:41 Approved by: Kale Bass M.D. on 02/14/2024 at 14:42
[2024-02-14 14:41] LABS: Hemoglobin 10.1 g/dL (13.5-17.5)
[2024-02-14 14:52] LABS: HEMOLYSIS < 15 (0-50); Iron 39 ug/dL (49-181)
[2024-02-14 15:03] LABS: Percent Iron Saturation 14 % (20-50); Total Iron Binding Capacity 280 ug/dL (261-462); Transferrin 193 mg/dL (206-381)
== END ==
PROVIDERS: Family Provider Family Medicine; PCP Family Medicine; Referring Provider Physician Assistant; Visit Provider Physician Assistant
DX: R05.9 Cough, unspecified (principal); I50.22 Chronic systolic (congestive) heart failure; I42.9 Cardiomyopathy, unspecified; D64.9 Anemia, unspecified; Z85.038 Personal history of other malignant neoplasm of large intestine; K92.2 Gastrointestinal hemorrhage, unspecified
CPT/HCPCS: 36415; 71046; 83540; 83550; 85014; 85018

== ENCOUNTER → 2024-02-15 08:23 | Outpatient (CLI) | payer MEDICARE, SELFPAY ==
[2024-01-21 20:36] VITALS: BMI 28.3
--- NOTE | 2024-02-15 08:25 | DI.CT.S_ITS ---
PROCEDURE: CT ABDOMEN PELVIS W CON INDICATIONS: persistent abdominal pain, possible ventral hernia TECHNIQUE: After the administration of intravenous contrast, axial sections acquired from the lung bases to the pubic symphysis. Coronal and sagittal reformats were performed. For radiation dose reduction, the following was used: automated exposure control, adjustment of mA and/or kV according to patient size. COMPARISON: [facility], CT, CT ABDOMEN PELVIS WITH CONTRAST, 12/11/2017, 13:20. [facility], CR, XR CHEST 2V, 02/14/2024, 13:30. [facility], CT, ABDOMEN/PELVIS WITH CONTRAST, 02/03/2016, 9:23. FINDINGS: Image quality: This examination is limited by involuntary motion artifact. Lower Chest: At least moderate coronary artery calcification can be seen. ABDOMEN: Liver: No solid mass. Gallbladder: No radiopaque gallstones or wall thickening. Biliary ducts: No biliary dilation. Pancreas: No ductal dilation. Spleen: Size is within normal limits. Adrenal Glands: No adrenal nodules. Kidneys and Ureters: No hydronephrosis. No solid mass. No complex renal cystic lesion which requires follow up. Stomach and Bowel: Prior right hemicolectomy change can be seen. The distal colon demonstrates generalized diverticulosis, without findings of active diverticulitis. Within the central lower abdomen, there is an irregular thick-walled focus that measures 8.1 x 7.7 cm in greatest axial dimension, with a craniocaudal extent of 9.4 cm. Surrounding inflammatory change can be seen. There is well contrast seen with in it. Peritoneum: No abnormal intraperitoneal fluid. No free air. Ventral Wall: A mild periumbilical hernia is seen, containing fat. Abdominal Nodes: No retroperitoneal or mesenteric adenopathy by size criteria. Vessels: Aorta and inferior vena cava are normal in size. PELVIS: Pelvic Organs: Unremarkable. Bladder: No bladder wall thickening, accounting for underdistention. Pelvic Nodes: No enlarged lymph nodes. Miscellaneous: No inguinal hernias are seen. Bones: No aggressive osseous abnormality. A stable apparent bone island can be seen within the anterior L4 vertebral body. Focal L5-S1 degenerative change is seen. IMPRESSION: Within the inferior mid abdomen, there is a thick-walled focus with surrounding inflammatory change, measuring up to 9.4 cm. Oral contrast can be seen within it. This is highly suspicious for recurrent colon cancer. - Surgical consultation is recommended. There is a trace fat containing periumbilical hernia. Additional findings: At least moderate coronary artery calcification L4 bone island Focal L5-S1 degenerative change Extensive distal colonic diverticulosis, without duane diverticulitis. Dictated by: Alejandro Cleveland M.D. on 02/15/2024 at 9:59 Approved by: Alejandro Cleveland M.D. on 02/15/2024 at 10:06
== END ==
PROVIDERS: Family Provider Family Medicine; PCP Family Medicine; Referring Provider Family Medicine; Visit Provider Family Medicine
DX: D64.9 Anemia, unspecified (principal); K57.91 Diverticulosis of intestine, part unspecified, without perforation or abscess with bleeding; R93.5 Abnormal findings on diagnostic imaging of other abdominal regions, including retroperitoneum; I25.10 Atherosclerotic heart disease of native coronary artery without angina pectoris; K42.9 Umbilical hernia without obstruction or gangrene; I42.9 Cardiomyopathy, unspecified; I50.22 Chronic systolic (congestive) heart failure; R05.3 Chronic cough; Z85.038 Personal history of other malignant neoplasm of large intestine; Z90.49 Acquired absence of other specified parts of digestive tract
CPT/HCPCS: 74177; Q9967

== ENCOUNTER → 2024-02-24 11:21 | Outpatient (CLI) | payer MEDICARE, SELFPAY ==
[2024-01-21 20:36] VITALS: BMI 28.3
[2024-02-24 12:28] LABS: Alanine Aminotransferase 14 IU/L (<50); Albumin Globulin Ratio 1.5 (1.0-2.8); Alkaline Phosphatase 64 U/L (38-126); Aspartate Aminotransferase 28 IU/L (17-59); BUN Creatinine Ratio 26.7 (6-22); Bilirubin Total 0.6 mg/dL (0.2-1.3); Blood Urea Nitrogen 23 mg/dL (9-20); Calcium 9.2 mg/dL (8.4-10.2); Carbon Dioxide 22 mmol/L (22-32); Chloride 105 mmol/L (98-107); Estimated Glomerular Filt Rate > 60 mL/min (>60); Globulin 2.6 g/dL (1.7-4.1); Glucose 97 mg/dL (80-110); HEMOLYSIS 19 (0-50); Potassium 4.5 mmol/L (3.4-5.1); Sodium 137 mmol/L (137-145); Total Protein 6.6 g/dL (6.3-8.2)
[2024-02-24 12:29] LABS: Add Manual Diff / Slide Review NO; Basophils Absolute Auto 0 /uL (0-100); Basophils Percent Auto 0.5 % (0-2); Eosinophils Absolute Auto 200 /uL (0-450); Eosinophils Percent Auto 1.7 % (2-4); Hematocrit 31.5 % (41-53); Hemoglobin 10.3 g/dL (13.5-17.5); Lymphocytes Absolute Auto 900 /uL (1100-4500); Lymphocytes Percent Auto 9.5 % (25-40); Mean Corpuscular HGB Conc 32.6 % (30-36); Mean Corpuscular Hemoglobin 25.9 PG (26-34); Mean Corpuscular Volume 79.4 fL (80-100); Monocytes Absolute Auto 700 /uL (0-900); Monocytes Percent Auto 7.6 % (3-14); Neutrophils Absolute Auto 7500 /uL (1500-7000); Neutrophils Percent Auto 80.7 % (50-75); Platelet Count 352 X10^3/uL (150-400); Red Blood Cell Count 3.97 X10^6/uL (4.5-5.9); Red Cell Distribution Width 23.8 % (11.6-14.8); White Blood Cell Count 9.3 X10^3/uL (4.5-11.0)
[2024-02-24 12:58] LABS: Burr Cells 2+; Carcinoembryonic Antigen 1.7 ng/mL (0.1-3.0); Platelet Estimate Adequate on smear; Poikilocytosis 2+
[2024-02-24 12:59] LABS: Anisocytosis 2+; Schistocytes 1+
== END ==
PROVIDERS: Family Provider Family Medicine; PCP Family Medicine; Referring Provider Surgery; Visit Provider Surgery
DX: D64.9 Anemia, unspecified (principal); K62.5 Hemorrhage of anus and rectum; R19.00 Intra-abdominal and pelvic swelling, mass and lump, unspecified site; Z85.038 Personal history of other malignant neoplasm of large intestine
CPT/HCPCS: 36415; 80053; 82378; 85025; 99213

== ENCOUNTER 2024-03-02 10:43 | Inpatient (IN) | payer MEDICARE, SELFPAY ==
[2024-01-21 20:36] VITALS: BMI 28.3
[2024-02-26 08:24] VITALS: BMI 26.8
[2024-03-02] VITALS (9 sets, daily range): BP systolic 94–122; BP diastolic 43–78; PULSE 78–92; RESP 12–19; TEMP 36.1–36.9; O2SAT 93–100; BMI 26.4
--- NOTE | 2024-03-02 | PATH_ITS ---
[facility] Accession Number: [id number] No. of containers..01 Tissue . 01 Material submitted: . small bowel - SMALL BOWEL MASS WITH SEGMENT OF SIGMOID COLON . 01 Diagnosis: SMALL BOWEL MASS WITH PORTION OF SIGMOID COLON, SMALL BOWEL SEGMENTAL RESECTION AND PARTIAL SIGMOIDECTOMY: -LARGE B-CELL LYMPHOMA, WITH AGGRESSIVE FEATURES AND KI67 EXPRESSION OF 70-80%, PENDING FISH RESULTS FOR FINAL DIAGNOSIS. -See comment and microscopic description. [facility] 03/05/2024 1654 Local . 01 Comment: Genetic studies for FISH evaluation for aggressive B cell lymphoma (MYC, BCL2 and BCL6 rearrangements) has been ordered and results will be issued in an addendum with an updated diagnosis. Lymphoma involves transmural wall of the small bowel including serosa, multiple lymph nodes, mesentery, and adhesed portion of sigmoid colon serosa not involving the sigmoid muscularis propria or mucosa. -The findings were discussed with Dr. Ford at 4:15 PM, on 03/05/2024. . 01 Electronically signed: . Jonah Leach MD, Pathologist NPI- [id number] . 01 Gross description: . Received in formalin with two identifiers and no additional designation, are two convoluted, adhesed segments of bowel. The identifiable portion of small bowel measures 19.2 cm in length by 2.6 cm in average diameter, while the adhesed section presumably consists of small bowel adherent to sigmoid colon per the requisition. Two stapled margins are identified at the same end of the adhesed portion while the opposite end is a loop of bowel. This adhesed portion measures 20.5 x 10.0 x 7.9 cm. . The serosa of the small bowel is cavanaugh with a small puckered are with a presumed suture measuring 0.4 x 0.4 cm, and is widely free from any margin. The remaining serosa has a small amount of possible exudate. The adhesed portion of serosa is pale cavanaugh and firm to hemorrhagic. The pale and hemorrhagic areas are located around the adhesed portion of bowel across an area measuring 11.3 x 8.2 cm. The remaining serosa is cavanaugh, intact, and unremarkable. A fourth staple line is identified and is possibly consistent with a short segment of sigmoid colon located on the adhesed area. This possible segment of colon measures 5.5 cm in length by 4.4 cm in diameter. . The identifiable small bowel margin is inked blue, the staple line possibly consistent with other small bowel margin is inked black, one possible sigmoid colon staple line is inked orange, while the opposite possible sigmoid colon staple line is inked green, and the mesenteric margin is inked yellow. The hemorrhagic cavanaugh and firm areas of serosa are inked , while the small puckered area of serosa on the small bowel is inked orange. . Opening the specimen reveals the small bowel to be adhesed to itself in a loop, while the short segment of sigmoid colon is separately adhesed to the loop of small bowel. The small bowel has a large ulcerated, annular mass measuring 11.1 x 8.4 cm, and is located 7.9 cm from the nearest black-inked small bowel margin. The mucosa on the opposite side of the loop adjacent to the adhesion is pale cavanaugh with firm thickened folds. The remaining mucosa of the small bowel and the mucosa of the portion of sigmoid colon is cavanaugh and velvety with normal-appearing folds and no additional lesions identified. The lesion obliterates the wall of the small bowel and extends into the adjacent adhesed portion of small bowel, and grossly approaches the mucosa. The lesion extends into the adjacent adipose with possible invasion into the wall of the sigmoid colon; however, the mucosa appears uninvolved. The lesion is widely free from the bowel margins and is 1.1 cm from the mesenteric margin, and grossly approaches the blue-inked serosa. The lesion is approximately 50% pale yellow soft tissue consistent with necrosis. . The uninvolved esposito average 0.2 cm thick. Severe diverticula are identified within the sigmoid colon measuring up to 0.9 cm deep. The sutured area of the small bowel is unremarkable. . Palpation reveals 19 cavanaugh lymph node candidates ranging from 0.3 to 2.5 cm in greatest dimension. . Unit Manager sections are submitted as follows: A1: Blue-inked small bowel margin en face. A2: Black-inked small bowel margin en face. A3: Unit Manager sigmoid colon margins en face. A4: Lesion with extension through the bowel wall into adjacent small bowel mucosa. A5: Lesion to yellow-inked mesenteric margin perpendicular. A6-A7: Lesion to serosa. A8-A9: Lesion to normal. A10: Lesion to sigmoid colon. A11: Unremarkable small bowel. A12: Unremarkable sigmoid colon with diverticula. A13: Four intact lymph node candidates. A14: Four intact lymph node candidates. A15: Three intact lymph node candidates. A16: Two intact lymph node candidates. A17: Two intact lymph node candidates. A18: Unit Manager section of single lymph node candidate. A19: Unit Manager section of single lymph node candidate. A20: Unit Manager section of single lymph node candidate. A21: Unit Manager section of single lymph node candidate. . Photographs taken. ([id number]) /RAYRAY 03/03/2024 1013 Local . 01 Microscopic: . - Histologic sections demonstrate small bowel with transmural involvement by sheets of pelcwzmbmarn-kn-urxcc atypical lymphoid cells with frequent mitotic figures, and individual and geographic necrosis. The neoplastic cells have irregular nuclear contours, and prominent mumdtk-li-erizhjdk nucleoli. They are present in the mesentery, serosa of the adhesed portion of sigmoid colon, and in multiple submitted lymph nodes. - Immunohistochemical stains were indicated and performed on block A6 with adequate controls. Neoplastic lymphoid cells are positive for CD20, PAX5, CD10, BCL-6, BCL-2, and C-MYC; while negative for CD5, Cyclin D1, MUM1, CD30, NASRIN, and MICHEL KEITH. CD21 shows weak focal nonspecific staining. Ki67 proliferation index is 70-80%. Background T-cells are highlighted by CD3, CD5, and BCL-2. The overall pattern is compatible with a large B-cell lymphoma with aggressive features. - As part of ongoing quality specialist, select slides were reviewed by Dr. Bhavani Gupta who agrees with the interpretation. Technical Note: The immunohistochemical stains reported were performed at [facility] ([address], [facility] [address]). They were developed and their performance characteristics determined by [employer] They have not been cleared or approved by the U.S. Food and Drug Administration, although such approval is not required for analyte-specific reagents of this type. . 01 Pathologist provided ICD-10: K57.92, C17.9 . 01 CPT . 267506, K71358, Y39867, 980431, [id number] Specimen Comment: A courtesy copy of this report has been sent to [phone] Performed at: [address], [place], [place] [id number] MD [place] MD Phone: [phone]
[2024-03-02] MEDS: LACTATED RINGERS 1,000 ML 42 ML IV ×2 (11:05→13:59)
--- NOTE | 2024-03-02 12:32 | PM.PREOP ---
Pre-operative Note COVID-19 COVID-19 status: Not tested Interval Note History & Physical reviewed/Exam performed by Physician: Yes Changes to H&P: No ASA Class (for procedural sedation): III
--- NOTE | 2024-03-02 13:49 | SUR.OPER ---
LOW Lithotomy on padded OR bed, head on pillow, arms secured on padded arm boards at <90 degrees abduction. Legs secured in padded yellow fins stirrups. CONFIRMED BY DR. POLO
--- NOTE | 2024-03-02 16:43 | P.OP_ITS ---
Operative Date/Time/Diagnoses Date of procedure: 03/02/24 Time of procedure: 16:43 Pre-op diagnosis: Abdominal mass Post-op diagnosis: same Procedure & Clinicians Procedure: Exploratory laparotomy EN bloc resection of small bowel mass and portion of the sigmoid colon Same procedure as scheduled: Yes Surgeon: Jw Ford Concrete Mason: Surya Morillo Anesthesia Type: General Operative Notes Procedure in detail: The patient is an 83-year-old man with a small-bowel mass on CT scan. He was consented for exploratory laparotomy. The patient was brought to the operating room, placed on the table in the supine position and general endotracheal anesthesia was induced. A Williamson catheter was placed. Was given Unasyn. A time-out was performed. We made a midline incision from about 4 fingerbreadths above the umbilicus to the top of the pubis. We entered the abdomen in the low midline. There were some adherent loops of small bowel and a serosal tear was noted which was repaired with 2 interrupted 3-0 silk sutures in a transverse fashion. We then lysed adhesions of small bowel to the anterior abdominal wall. There was a large mass in a segment of small bowel. There was no evidence of small-bowel obstruction. The mass was densely adherent to a loop of sigmoid colon. There was a loop of small bowel about 20 cm distal that was also adherent. We resected the small bowel mass including the distal adherent loop and a 10 cm segment of sigmoid colon EN bloc. The mesentery of the small bowel contained bulky lymphadenopathy all the way up to the root of the mesentery which could not be completely resected. We took down the mesentery with the impact LigaSure. It did appear that were coming across tumor at the highest point of the mesenteric resection. There was some venous bleeding from the mesenteric edge which was controlled with a single 3-0 silk stitch. We then laid some Surgicel over the cut edge of the small bowel mesentery which was quite thick at that point roughly 3 cm across. We then irrigated the abdomen in all quadrants. The liver right was palpated no obvious masses were felt. The left liver was not accessible due to adhesions from prior surgery. We then closed the mesenteric defect with a running 2-0 Vicryl stitch. The abdominal fascia was closed with a running 0 PDS suture reinforced with multiple interrupted 0 Vicryl internal retention sutures. The subcutaneous wound was irrigated and the skin was closed with js. Sterile dressings were applied. Tap blocks were administered by Valerie Blue CRNA. EBL: 50 mL Specimen: Small bowel mass with segment of adherent sigmoid colon Adonay MARTIN provided assistance with exposure, retraction and closure of incisions. Post-operative Condition: stable Disposition: PACU
[2024-03-02] MEDS: HYDROCODONE/ACET 5/325 TABLET 1 TAB PO (18:22)
[2024-03-02] MEDS: LACTATED RINGERS 1,000 ML 100 ML IV (18:24)
[2024-03-02] MEDS: TAMSULOSIN 0.4 MG CAPSULE 0.8 MG PO (20:27)
[2024-03-03] MEDS: HYDROCODONE/ACET 5/325 TABLET 1 TAB PO ×4 (02:46→21:20)
[2024-03-03] MEDS: LACTATED RINGERS 1,000 ML 100 ML IV ×2 (04:18→13:56)
[2024-03-03 04:45] VITALS: BP 103/59; PULSE 90; RESP 17; O2SAT 94
[2024-03-03 05:05] LABS: Add Manual Diff / Slide Review NO; Basophils Absolute Auto 0 /uL (0-100); Basophils Percent Auto 0.1 % (0-2); Eosinophils Absolute Auto 0 /uL (0-450); Hematocrit 26.4 % (41-53); Hemoglobin 8.8 g/dL (13.5-17.5); Lymphocytes Absolute Auto 600 /uL (1100-4500); Lymphocytes Percent Auto 5.3 % (25-40); Mean Corpuscular HGB Conc 33.2 % (30-36); Mean Corpuscular Volume 78.4 fL (80-100); Monocytes Absolute Auto 900 /uL (0-900); Monocytes Percent Auto 8.3 % (3-14); Neutrophils Absolute Auto 9200 /uL (1500-7000); Neutrophils Percent Auto 86.3 % (50-75); Platelet Count 355 X10^3/uL (150-400); Red Blood Cell Count 3.37 X10^6/uL (4.5-5.9); Red Cell Distribution Width 22.7 % (11.6-14.8); White Blood Cell Count 10.7 X10^3/uL (4.5-11.0)
[2024-03-03 05:48] LABS: BUN Creatinine Ratio 16.2 (6-22); Blood Urea Nitrogen 12 mg/dL (9-20); Calcium 7.8 mg/dL (8.4-10.2); Carbon Dioxide 26 mmol/L (22-32); Chloride 104 mmol/L (98-107); Estimated Glomerular Filt Rate > 60 mL/min (>60); Glucose 142 mg/dL (80-110); HEMOLYSIS < 15 (0-50); Sodium 134 mmol/L (137-145)
[2024-03-03 05:52] LABS: Anisocytosis 2+; Microcytosis 1+; Poikilocytosis 2+
[2024-03-03 05:53] LABS: Platelet Estimate Adequate on smear; Schistocytes 1+
[2024-03-03] MEDS: PANTOPRAZOLE DR 40 MG TABLET PO (06:23)
--- NOTE | 2024-03-03 08:19 | PM.CN ---
History of Present Illness Consult details Date Patient Seen: 03/03/24 Time Patient Seen: 08:19 Chief complaint: Small-bowel sigmoid mass Reason for consult: Medical management Narrative: Mr. 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 Patient has had evaluation of this a number of times over the years. Most recently admitted to the hospital 1 month ago. Where he had an upper and lower endoscopy which showed no significant source of bleeding his anticoagulation was stopped during his workup inpatient an outpatient CT scan was done which showed a mass in his lower pelvis area. Patient had a follow-up surgical consultation as an outpatient and was not admitted to the hospital for removal of this mass. I am seeing the patient today for medical management. Patient says he is feeling well. Has a little bit of pain. He had some jello last night which cause some mild nausea. Patient has Williamson catheter in with good urine output. His vital signs have been stable patient is without fever. He is mildly hypotensive with a blood pressure of 103/59. His saturation as well. This morning his labs show hemoglobin 8.8 and an MCV is 78. Patient is and has been iron deficient anemic due to ongoing chronic blood loss. Surgical operation note was reviewed. Labs are seeing this morning is sodium is a little bit no low has normal kidney function his blood glucose is normal. Patient does not appear to be in heart failure. He is off anticoagulation his pain is well controlled. He hopes to ambulate today. Meds Home Medications and Allergies Home Medications Medication Instructions Recorded Confirmed Type multivitamin (Multiple Vitamins 1 tab PO QDAY ##0 08/15/11 03/02/24 History tablet) omega 7-fpb-few-fish oil 1,000 mg 1,000 mg PO BID ##0 08/20/11 02/26/24 History (120 mg-180 mg) capsule (Fish Oil) rosuvastatin 10 mg tablet 10 mg PO QDAY ##0 09/02/17 03/02/24 History cholecalciferol (vitamin D3) 50 2,000 unit PO DAILY 06/25/18 03/02/24 History mcg (2,000 unit) capsule ascorbic acid (vitamin C) 250 mg 250 mg PO DAILY #90 tabs 11/09/21 03/02/24 Rx tablet spironolactone 25 mg tablet 12.5 mg PO DAILY 08/30/22 03/02/24 History tamsulosin 0.4 mg capsule 0.8 mg (2 x 0.4 mg) PO BEDTIME 12/10/22 03/02/24 Rx #180 caps losartan 50 mg tablet 75 mg PO DAILY 01/21/24 03/02/24 History metoprolol succinate 25 mg 25 mg PO BID 01/21/24 03/02/24 History tablet,extended release 24 hr ferrous sulfate 325 mg (65 mg 325 mg PO DAILY #90 tabs 01/24/24 02/26/24 Rx iron) tablet pantoprazole 40 mg tablet,delayed 40 mg PO DAILY #30 tabs 02/13/24 03/02/24 Rx release finasteride 5 mg tablet 5 mg PO DAILY #90 tabs 02/18/24 03/02/24 Rx metronidazole 500 mg tablet 500 mg PO TID #3 tabs 02/24/24 03/02/24 Rx neomycin 500 mg tablet 1 g (2 x 500 mg) PO TID 3 doses #6 02/24/24 03/02/24 Rx tabs Allergies Allergy/AdvReac Type Severity Reaction Status Date / Time Influenza Virus Vaccines Allergy Unknown Verified 03/02/24 11:17 [INFLUENZA VIRUS VACCINES] Exam Vital Signs (past 8 hours): - 03/03/24 04:45 Pulse Rate 90 Respiratory Rate 17 Blood Pressure 103/59 L Pulse Oximetry 94 Oxygen Flow Rate 0 Oxygen Delivery Method Room Air Oxygen Flow Rate 0 Narrative Exam Narrative: Gen.: Alert good historian HEENT: Pupils equal round and reactive or mucosa is moist neck is supple Cardio: S1-S2 irregular rate and rhythm Respiratory: Lungs are clear normal respiratory effort Abdomen: Incision clean dry and intact abdominal tenderness Extremities: Full range of motion no significant weakness Neurologic: Patient has difficulty with speech at times Objective Labs 03/03/24 04:32 03/03/24 04:32 Labs: Laboratory Results - last 24 hr 03/03/24 04:32 WBC 10.7 RBC 3.37 L Hgb 8.8 L Hct 26.4 L MCV 78.4 L MCH 26.0 MCHC 33.2 RDW 22.7 H Plt Count 355 Neut % (Auto) 86.3 H Lymph % (Auto) 5.3 L [place] % (Auto) 8.3 Eos % (Auto) 0.0 L Baso % (Auto) 0.1 Neut # (Auto) 9200 H Lymph # (Auto) 600 L [place] # (Auto) 900 Eos # (Auto) 0 Baso # (Auto) 0 Platelet Estimate Adequate on smear RBC Morphology See below Poikilocytosis 2+ H Anisocytosis 2+ H Microcytosis 1+ H Schistocytes 1+ H Sodium 134 L Potassium 4.0 Chloride 104 Carbon Dioxide 26 BUN 12 Creatinine 0.74 Estimated GFR > 60 BUN/Creatinine Ratio 16.2 Glucose 142 H Calcium 7.8 L PFSH Medical History (Updated 03/03/24 @ 08:26 by Amandeep Olson MD) Chronic systolic heart failure Colon cancer BPH w urinary obs/LUTS Neurological disease High blood pressure Anticoagulation goal of INR 2 to 3 Dark stools Ischemic cardiomyopathy 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 infarction GERD (gastroesophageal reflux disease) Diverticular disease (2003) Foot pain (2013) Colorectal cancer (1990) Colon polyps (2009) Cataract Hearing loss (2012) Measles Rubella 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) 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 Peripheral neuropathy (2001) LV (left ventricular) mural thrombus (2016) Heart failure, diastolic (1996) Myocardial infarction (1996) CAD (coronary artery disease) Occipital cerebral infarction (09/06/17) 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 (09/06/17) Influenza B Scrotal swelling Epididymitis Diverticulitis large intestine Diverticulitis Surgical History History of hernia repair Anesthesia Status post coronary artery stent placement (01/2008) Status post tonsillectomy and adenoidectomy (2011) Status post colonoscopy (2012) Status post colectomy (1990) Family History Father Heart disease Colon cancer Hearing impairment Mother Stroke Heart disease Heart attack Social History marital status: number of children: 3 household members: spouse Tobacco & Substance Use Smoking Status: Never smoker alcohol intake: former substance use type: does not use Assessment & Plan Assessment and plan (1) Colonic mass: Status: Acute Plan Colonic and small bowel mass. Surgical procedure done yesterday. Patient is doing well this morning communicating has minimal pain trying some clear liquid. Has a Williamson catheter in place. He wanted know about findings of the mass and what is next. We discussed with him the pathology takes a number of days to come back. Surgical management to our general surgeons. Acute on chronic blood loss anemia. Hemoglobin is stable. Patient needs to be on iron supplementation as he is iron deficient. Will continue to monitor his hemoglobin hematocrit and add iron supplementation. Coronary artery disease history of myocardial infarction. Continue with home medications once tolerating Crestor metoprolol and Plavix. Atrial fibrillation. Patient has atrial fibrillation he is chronically anticoagulated has a history of mural thrombus. His warfarin is on hold because of the bleeding. Cerebrovascular accident. Patient has not late effects. No new symptoms continue with statin blood pressure management. Chronic systolic congestive heart failure appears to be euvolemic at this point and not fluid overloaded. Carotid artery stenosis chronic BPH. Without history of previous obstruction. Will continue with patient's Flomax and finasteride. Will follow along while patient is in the hospital and manage his medical problems.
[2024-03-03] MEDS: ATORVASTATIN 20 MG TABLET PO (08:29)
[2024-03-03 08:30] VITALS: BP 105/58
[2024-03-03] MEDS: METOPROLOL ER 25 MG TABLET PO ×2 (08:30→21:20)
[2024-03-03] MEDS: SPIRONOLACTONE 25 MG TABLET 12.5 MG PO (08:30)
[2024-03-03] MEDS: FINASTERIDE 5 MG TABLET PO (08:30)
[2024-03-03] MEDS: LOSARTAN 25 MG TABLET 75 MG PO (08:30)
[2024-03-03 08:43] VITALS: BP 105/58; PULSE 89; RESP 19; TEMP 36.6; O2SAT 95
--- NOTE | 2024-03-03 09:08 | PM.PN.1 ---
Subjective Subjective Date Patient Seen: 03/03/24 Time Patient Seen: 09:08 Interval history: Cody has abdominal discomfort and occasional spasms but overall feels well. Tolerating his clear liquid diet. Exam Vital Signs (past 8 hours): - 03/03/24 04:45 03/03/24 08:30 03/03/24 08:30 Temperature Pulse Rate 90 Respiratory Rate 17 Blood Pressure 103/59 L 105/58 L 105/58 L Pulse Oximetry 94 Oxygen Flow Rate 0 03/03/24 08:43 Temperature 97.8 F Pulse Rate 89 Respiratory Rate 19 Blood Pressure 105/58 L Pulse Oximetry 95 Oxygen Flow Rate 0 Oxygen Delivery Method Room Air Oxygen Flow Rate 0 Const General: No acute distress Resp Effort & Inspection: normal respiratory effort GI Other: Dressings over the midline wound are in place Objective Labs 03/03/24 04:32 03/03/24 04:32 Labs: Laboratory Results - last 24 hr 03/03/24 04:32 WBC 10.7 RBC 3.37 L Hgb 8.8 L Hct 26.4 L MCV 78.4 L MCH 26.0 MCHC 33.2 RDW 22.7 H Plt Count 355 Neut % (Auto) 86.3 H Lymph % (Auto) 5.[address] [place] % (Auto) 8.3 Eos % (Auto) 0.0 L Baso % (Auto) 0.1 Neut # (Auto) 9200 H Lymph # (Auto) [address] [place] # (Auto) 900 Eos # (Auto) 0 Baso # (Auto) 0 Platelet Estimate Adequate on smear RBC Morphology See below Poikilocytosis 2+ H Anisocytosis 2+ H Microcytosis 1+ H Schistocytes 1+ H Sodium 134 L Potassium 4.0 Chloride 104 Carbon Dioxide 26 BUN 12 Creatinine 0.74 Estimated GFR > 60 BUN/Creatinine Ratio 16.2 Glucose 142 H Calcium 7.8 L PFSH Medical History (Updated 03/03/24 @ 09:09 by Jw Ford MD) Chronic systolic heart failure Colon cancer BPH w urinary obs/LUTS Neurological disease High blood pressure Anticoagulation goal of INR 2 to 3 Dark stools Ischemic cardiomyopathy 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 infarction GERD (gastroesophageal reflux disease) Diverticular disease (2003) Foot pain (2013) Colorectal cancer (1990) Colon polyps (2009) Cataract Hearing loss (2012) Measles Rubella Guillain-[place] syndrome (~2001) 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 Peripheral neuropathy (2001) LV (left ventricular) mural thrombus (2016) Heart failure, diastolic (1996) Myocardial infarction (1996) CAD (coronary artery disease) Occipital cerebral infarction (09/06/17) 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 (09/06/17) Influenza B Scrotal swelling Epididymitis Diverticulitis large intestine Diverticulitis Surgical History History of hernia repair Anesthesia Status post coronary artery stent placement (01/2008) Status post tonsillectomy and adenoidectomy (2011) Status post colonoscopy (2012) Status post colectomy (1990) Family History Father Heart disease Colon cancer Hearing impairment Mother Stroke Heart disease Heart attack Social History marital status: number of children: 3 household members: spouse Smoking Status: Never smoker alcohol intake: former substance use type: does not use Assessment & Plan Assessment and plan (1) Postoperative examination: Status: Acute Plan DC Williamson Mobilize We will transfuse if he becomes tachycardic Quality VTE Deep Vein Thrombosis/Pulmonary Embolism Present on Admission: No
[2024-03-03] MEDS: ONDANSETRON 4 MG/2 ML INJ IV (13:30)
--- NOTE | 2024-03-03 15:26 | CM.DANOTE ---
DCP Assessment Note Pt is a 83yo M here following exploratory laparotomy with Dr. Ford on 03/02/24. Pt is POD1. PCP dr. [facility] and self pay INFORMATICS EDUCATOR reviewed EMR. Pt was recently admitted 01/22/24-01/24/24 for anemia. Discharged home with spouse support. Currently surgery is follow up for that admission. Pt had small bowel mass removed. Per surgeon PN, pt tolerating clear liquid diet. Per RN, pt overall doing well. Likely diet will advance slowly. No obvious CM needs at this time, no current ambulation concerns. INFORMATICS EDUCATOR entered room and introduced self and role. Pt confirms living in [place] with spouse Kat. Pt is normally indep/active at baseline. Pt reports he's been having stomach cramps today but is hopeful to get out of bed and moving around. Pt denies CM/DCP needs at this time. Plan: anticipate home with spouse at this time. No barriers identified to safe dc home with spouse to assist. CM team will continue to follow closely in case DCP needs arise. SHAMIKA Watson Discharge Planning/Care Management CM Discharge Assessment Start: 03/03/24 15:23 Freq: Status: Active Protocol: Document 03/03/24 15:23 (Rec: 03/03/24 15:26 [id number]) Discharge Planning Assessment Assigned Head Of Transport Logistics SHAMIKA Ko DPOA/Assigned Designee Name paul Stephens Contact Information [phone] Advance Directives? Yes Advance Directives on File Yes: states DNR History Provided By Patient Prior Living Arrangements House Household Members spouse Type of transporation used prior to Drives own vehicle admit Independent with ADL's Yes Is patient alert and oriented? Yes Barriers to Discharge No Discharge Plan Home Transportation Arrangement Family Referrals Initiated None needed Whiteboard Updated in Patient Room with Yes name and ext. # of Head Of Transport Logistics Review Status In Process Please Provide Date Initial DC 03/03/24 Assessment Was Performed Next Review Type Continued Stay Review Pre-Anesthesia Assessment Start: 02/26/24 08:24 Freq: Status: Active Protocol: Document 02/26/24 08:24 CAB (Rec: 02/26/24 09:17 CAB [id number]) Pre-Anesthesia Assessment Preferred Name Cody Patient Information Reviewed Via Phone Assessment Assessment Completed With Patient Primary Care Provider Amanedep Olson Seen Specialist in Last 12 Months Yes Specialist Seen Referral Manager,General surgeon, Other Primary Language Tajik Preferred Language Tajik Slack Line Yarder Required No Height 182.88 cm Weight 89.811 kg Body Mass Index (BMI) 26.8 Hearing Ability Hearing Impaired,Use of Hearing Aid Visual Assist Magnifying Glass Dentition Type Teeth, Natural Present Barriers to Learning Auditory Hx Anesthesia Reactions No Hx Family Anesthesia Reaction No Hx Malignant Hyperthermia No Hx Blood Transfusions Yes: r/t GI bleed-admit to [facility] 01/21/24-02/05/24 Hx Blood Transfusion Reaction No Anesthesia Review Requested No Engine Repairer Service No alcohol intake former Smoking Status Never smoker Substance Use Type does not use Pain Present Pain Reported Comment Abdominal History of Falling (Recent or History of No ) Patient is completely paralyzed or No completely immobile Mental Status Oriented to own ability Is patient on oxygen? No Does patient have VALENCIA/SOB No Hx Sleep Apnea No CPAP/BIPAP use not prescribed Currently Taking a Beta Christy Yes: Metoprolol Can You Climb a Flight of Stairs Without Yes SOB Hx Chest Pain No Hx SOB No Hx Syncope or Dizziness No Anti-Coagulant Therapy No Has a Referral Manager Yes: Last visit 01/28/[address] Turner Cardiac Testing No Hx Pacemaker/ICD No Pacemaker Rep Required? No Cardiac Clearance Received No Comment Cardiac records scanned and in surgery folder Diet Type At Home Regular Dysphagia No Gastrointestinal Symptoms Abdominal Pain,Blood in Stool, Change in Stool Characteristics,Constipation Genitourinary Symptoms Difficulty Urinating Bladder Pattern Frequency,Nocturia,Urgency Urinary Catheter Present No Hx Urinary Self Catheterization No Diabetes No Hx Drug Resistant Organism No Presence of External or Internal Medical Yes: Cardiac stent Devices Received a COVID vaccine? Yes: x3 Marital Status Lives With spouse Current Living Arrangements House Number of Floors (Floors) One Floor Support System Spouse Does the Patient Have Assistance After Yes Surgery Patient Discharge Plan Description Return Home Comment Pt not advised on length of stay per surgeon Feels Safe in Current Environment Yes Been Physically Hurt or Threatened By a No Person in Current Environment Do you have thoughts of harming yourself None or others? Are you currently considering suicide? No Do you have a plan to hurt yourself or No Plan others? Do You Have Any Spiritual Beliefs That No May Affect Your HC Choices? Do You Have Any Cultural Practices That No May Affect Your HC Choices? Comment Episcopal Who Can We Speak to About Patient's Care Family, friends Identifying Code for Release of Patient Declines to issue Information Health Care Proxy/Next of Kin Kat () Health Care Proxy or [phone] Emergency Contact Name Kat Franco Emergency Contact Advance Directives? Yes Advance Directives on File Yes: states DNR Power of Conche Loader And Unloader No PAC Instructions Durable medical equipment, Medications to take/avoid,No ETOH/petroleum product on skin DOS,NPO,Post-op transportation,Pre-op antibiotic,Pre-surgical wash, Sturdy shoes/comfortable clothes,Do not bring valuables and remove jewelry
[2024-03-03] MEDS: TAMSULOSIN 0.4 MG CAPSULE 0.8 MG PO (21:20)
[2024-03-03 22:24] VITALS: BP 120/59; PULSE 70; RESP 17; TEMP 36.4; O2SAT 90
[2024-03-04 05:46] LABS: Hematocrit 25.2 % (41-53); Hemoglobin 8.1 g/dL (13.5-17.5)
[2024-03-04] MEDS: PANTOPRAZOLE DR 40 MG TABLET PO (05:50)
[2024-03-04 05:56] LABS: BUN Creatinine Ratio 10.3 (6-22); Blood Urea Nitrogen 8 mg/dL (9-20); Calcium 7.8 mg/dL (8.4-10.2); Carbon Dioxide 27 mmol/L (22-32); Chloride 106 mmol/L (98-107); Estimated Glomerular Filt Rate > 60 mL/min (>60); Glucose 108 mg/dL (80-110); HEMOLYSIS < 15 (0-50); Potassium 3.8 mmol/L (3.4-5.1); Sodium 135 mmol/L (137-145)
[2024-03-04 08:33] VITALS: BP 155/77
[2024-03-04] MEDS: LOSARTAN 25 MG TABLET 75 MG PO (08:33)
[2024-03-04 08:34] VITALS: BP 155/77
[2024-03-04] MEDS: ATORVASTATIN 20 MG TABLET PO (08:34)
[2024-03-04] MEDS: FINASTERIDE 5 MG TABLET PO (08:34)
[2024-03-04] MEDS: SPIRONOLACTONE 25 MG TABLET 12.5 MG PO (08:34)
[2024-03-04] MEDS: METOPROLOL ER 25 MG TABLET PO ×2 (08:34→22:04)
[2024-03-04] MEDS: HYDROCODONE/ACET 5/325 TABLET 1 TAB PO (08:41)
[2024-03-04 08:56] VITALS: BP 114/58; PULSE 75; RESP 16; TEMP 36.6; O2SAT 95
--- NOTE | 2024-03-04 10:10 | P.PN_ITS ---
Subjective Subjective Date Patient Seen: 03/04/24 Time Patient Seen: 10:10 Interval history: Feeling slightly better today. Still no flatus. Tolerating some clear liquids. Exam Vital Signs (past 8 hours): - 03/04/24 08:33 03/04/24 08:34 03/04/24 08:56 Temperature 97.9 F Pulse Rate 75 Respiratory Rate 16 Blood Pressure 155/77 H 155/77 H 114/58 L Pulse Oximetry 95 Oxygen Delivery Method Room Air Oxygen Flow Rate 0 Narrative Exam Narrative: Incision is clean without erythema or drainage Objective Labs 03/04/24 05:11 03/04/24 05:11 Labs: Laboratory Results - last 24 hr 03/04/24 05:11 Hgb 8.1 L Hct 25.2 L Sodium 135 L Potassium 3.8 Chloride 106 Carbon Dioxide 27 BUN 8 L Creatinine 0.78 Estimated GFR > 60 BUN/Creatinine Ratio 10.3 Glucose 108 Calcium 7.8 L PFSH Medical History (Updated 03/03/24 @ 09:09 by Jw Ford MD) Chronic systolic heart failure Colon cancer BPH w urinary obs/LUTS Neurological disease High blood pressure Anticoagulation goal of INR 2 to 3 Dark stools Ischemic cardiomyopathy 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 infarction GERD (gastroesophageal reflux disease) Diverticular disease (2003) Foot pain (2013) Colorectal cancer (1990) Colon polyps (2009) Cataract Hearing loss (2012) Measles Rubella Guillain-[place] syndrome (~2001) 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 Peripheral neuropathy (2001) LV (left ventricular) mural thrombus (2016) Heart failure, diastolic (1996) Myocardial infarction (1996) CAD (coronary artery disease) Occipital cerebral infarction (09/06/17) 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 (09/06/17) Influenza B Scrotal swelling Epididymitis Diverticulitis large intestine Diverticulitis Surgical History History of hernia repair Anesthesia Status post coronary artery stent placement (01/2008) Status post tonsillectomy and adenoidectomy (2011) Status post colonoscopy (2012) Status post colectomy (1990) Family History Father Heart disease Colon cancer Hearing impairment Mother Stroke Heart disease Heart attack Social History marital status: number of children: 3 household members: spouse Smoking Status: Never smoker alcohol intake: former substance use type: does not use Assessment & Plan Assessment and plan (1) Postoperative examination: Status: Acute Plan Doing well. We will advance diet once passing gas Quality VTE Deep Vein Thrombosis/Pulmonary Embolism Present on Admission: No
--- NOTE | 2024-03-04 10:40 | P.PN_ITS ---
Subjective Subjective Date Patient Seen: 03/04/24 Time Patient Seen: 10:40 Interval history: Patient seen and evaluated at bedside. Patient said did well overnight bed was quite uncomfortable had to get up into the chair which is probably good. Tolerating a little bit of diet. No bowel movement does not think he is passing gas yet. Williamson catheter and IV or removed. He is up ambulating with assistance. He does well moving around the room. He says starting to feel little bit hungry and feels like if he eats things will start moving through. No complaints of pain. No irregular heartbeat no shortness of breath. No significant palpitations. His blood counts and electrolytes were reviewed this morning which are stable. Exam Vital Signs (past 8 hours): - 03/04/24 08:33 03/04/24 08:34 03/04/24 08:56 Temperature 97.9 F Pulse Rate 75 Respiratory Rate 16 Blood Pressure 155/77 H 155/77 H 114/58 L Pulse Oximetry 95 Oxygen Delivery Method Room Air Oxygen Flow Rate 0 Narrative Exam Narrative: Gen.: Alert good historian mildly aphasic HEENT: Pupils equal round and reactive or mucosa is moist Cardio: S1-S2 irregular rhythm Respiratory: Normal respiratory effort lungs are clear Abdomen: Soft. Incision is clean dry and intact. Dressing has been removed Extremities: Full range of motion with no significant edema Objective Labs 03/04/24 05:11 03/04/24 05:11 Labs: Laboratory Results - last 24 hr 03/04/24 05:11 Hgb 8.1 L Hct 25.2 L Sodium 135 L Potassium 3.8 Chloride 106 Carbon Dioxide 27 BUN 8 L Creatinine 0.78 Estimated GFR > 60 BUN/Creatinine Ratio 10.3 Glucose 108 Calcium 7.8 L [facility] Medical History (Updated 03/03/24 @ 09:09 by Jw Ford MD) Chronic systolic heart failure Colon cancer BPH w urinary obs/LUTS Neurological disease High blood pressure Anticoagulation goal of INR 2 to 3 Dark stools Ischemic cardiomyopathy 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 infarction GERD (gastroesophageal reflux disease) Diverticular disease (2003) Foot pain (2013) Colorectal cancer (1990) Colon polyps (2009) Cataract Hearing loss (2012) Measles Rubella Guillain-[place] syndrome (~2001) 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 Peripheral neuropathy (2001) LV (left ventricular) mural thrombus (2016) Heart failure, diastolic (1996) Myocardial infarction (1996) CAD (coronary artery disease) Occipital cerebral infarction (09/06/17) 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 (09/06/17) Influenza B Scrotal swelling Epididymitis Diverticulitis large intestine Diverticulitis Surgical History History of hernia repair Anesthesia Status post coronary artery stent placement (01/2008) Status post tonsillectomy and adenoidectomy (2011) Status post colonoscopy (2012) Status post colectomy (1990) Family History Father Heart disease Colon cancer Hearing impairment Mother Stroke Heart disease Heart attack Social History marital status: number of children: 3 household members: spouse Smoking Status: Never smoker alcohol intake: former substance use type: does not use Assessment & Plan Assessment and plan (1) Colonic mass: Status: Acute Plan Postoperative day 2 removal of colonic and small bowel mass. Pathology pending. Patient's recovery course being monitored by General surgery. He has been up ambulating Williamson catheter has been removed IV fluids of stopped he is starting clear liquid. Not a lot of bowel activity yet. Pain is well controlled. Acute on chronic blood-loss anemia. Patient's hemoglobin hematocrit stable today. Will hold off on additional blood draws tomorrow and recheck as appropriate. Coronary artery disease with history of myocardial infarction without current underlying myocardial ischemia continue with beta-varghese statin and Plavix. Atrial fibrillation chronic. Patient off anticoagulation. Once he is recovered from surgery will start patient back on Eliquis. He has had multiple episodes of gastrointestinal intestinal bleeding which I am assuming his from this mass so we will go ahead and restart that once appropriate. Cerebrovascular accident. Patient with late affects of aphasia. Patient also had carotid artery stenosis. No current new neurological symptoms Chronic systolic congestive heart failure with cardiomyopathy. Fluid status appears to be stable. No signs of acute heart failure exacerbation BPH. Patient is voiding without obstruction continue with Flomax and finasteride Disposition and plan. Patient is doing well surgically and medically. Continue with post surgical ambulation advancing diet etc.. Quality VTE Deep Vein Thrombosis/Pulmonary Embolism Present on Admission: No PROFEE Charge codes Subsequent inpatient/observation care: [id number]
[2024-03-04] MEDS: ENOXAPARIN 40 MG/0.4 ML SYRINGE SUBCUT (10:47)
--- NOTE | 2024-03-04 11:29 | CM.DPNOTE ---
DCP Note FINE ARTS INSTRUCTOR reviewed EMR. Pt is POD2 of removing colon/small bowel mass. Per RN report, pt movnig and voiding well. Clears today, no nausea. Able to tolerate bone broth better today. Per provider PN, pt will dc once able to advance diet. Plan: anticipate home with spouse when medically stable. No barriers identified to safe dc home with spouse to assist. CM team will continue to follow closely in case DCP needs arise. SHAMIKA Watson
--- NOTE | 2024-03-04 11:29 | PC.NURSE ---
Pt up to br to void and now walking in acosta with SBA. Pt is steady on his feet and denies nausea.
--- NOTE | 2024-03-04 15:38 | DIET.CONS ---
Dietary Consultation Note Admission Date: 03/02/2024 10:43 Assessment: 83 y M admitted following exploratory laparotomy. Nutrition screened for low MNA. Met with pt and spouse at bedside. Reports a decrease in appetite/ increased satiety at meals since December after being sick with COVID, this year, with noted 15 lb weight loss. Pt reports his goal weight is 200 lb (90.9 kg). Spouse prepares meals. Diet recall: B-oatmeal or eggs L-sandwich or leftovers D-meat, carb, veg Nutrition focused physical exam performed, no significant results. Ht: 182.88 cm Wt: 88.451 kg BMI: 26.4 UBW: 95.2 kg in January, 97.296 kg in Oct (-5% weight loss in 1 month, severe, -7% weight loss in 4 months) Last BM: 03/03/24 (03/03/24 06:00) MNA: 7 Geovany Score: 20 Diet: 03/02/24 Dinner Clear Liquid Diet Diet Modifications: Nutrition Percent Meal Consumed 50% 03/04/24 15:04 Percent Meal Consumed 50% 03/03/24 18:35 Percent Meal Consumed 50% 03/03/24 10:54 Labs: RBC 3.37 X10^6/uL (4.5-5.9) L 03/03/24 04:32 Hgb 8.1 g/dL (13.5-17.5) L 03/04/24 05:11 Hct 25.2 % (41-53) L 03/04/24 05:11 Creatinine 0.78 mg/dL (0.66-1.25) 03/04/24 05:11 Nutrition Diagnosis: Unintended weight loss r/t decreased appetite w/ altercations in the GI tract aeb 5% weight loss in 1 month, severe Interventions: 1. Will monitor for diet advancement and protein supplementation prn 2. When diet is advanced and tolerated, encouraged return to normal, adequate meals EER: [id number] kcals (20-23 kcals/kg per BMI) 85-95 g protein (1-1.1 g/kg post op, age) Monitoring/Evaluations: Electronically Signed by: Nani Hancock 03/04/24 15:38 Clinical Dietitian [address] [id number]
[2024-03-04 20:53] VITALS: BP 120/60; PULSE 80; RESP 19; TEMP 36.6; O2SAT 96
[2024-03-04 22:04] VITALS: BP 120/60; PULSE 80
[2024-03-04] MEDS: TAMSULOSIN 0.4 MG CAPSULE 0.8 MG PO (22:04)
[2024-03-04 23:00] VITALS: BP 118/64; PULSE 80
[2024-03-05 07:37] VITALS: BP 121/69; PULSE 85; RESP 21; TEMP 36.4; O2SAT 97
[2024-03-05] MEDS: PANTOPRAZOLE DR 40 MG TABLET PO (07:37)
[2024-03-05] MEDS: ONDANSETRON 4 MG/2 ML INJ IV (07:43)
[2024-03-05 11:29] LABS: Add Manual Diff / Slide Review NO; Basophils Absolute Auto 0 /uL (0-100); Basophils Percent Auto 0.3 % (0-2); Eosinophils Absolute Auto 0 /uL (0-450); Eosinophils Percent Auto 0.4 % (2-4); Hematocrit 28.5 % (41-53); Hemoglobin 9.2 g/dL (13.5-17.5); Lymphocytes Absolute Auto 400 /uL (1100-4500); Lymphocytes Percent Auto 4.1 % (25-40); Mean Corpuscular HGB Conc 32.3 % (30-36); Mean Corpuscular Hemoglobin 25.4 PG (26-34); Mean Corpuscular Volume 78.6 fL (80-100); Monocytes Absolute Auto 600 /uL (0-900); Monocytes Percent Auto 6.5 % (3-14); Neutrophils Absolute Auto 8700 /uL (1500-7000); Neutrophils Percent Auto 88.7 % (50-75); Platelet Count 354 X10^3/uL (150-400); Red Blood Cell Count 3.62 X10^6/uL (4.5-5.9); Red Cell Distribution Width 22.4 % (11.6-14.8); White Blood Cell Count 9.9 X10^3/uL (4.5-11.0)
[2024-03-05 11:43] LABS: Anisocytosis 2+
[2024-03-05 11:44] LABS: Schistocytes 1+
[2024-03-05 11:45] LABS: Poikilocytosis 1+
[2024-03-05] MEDS: ENOXAPARIN 40 MG/0.4 ML SYRINGE SUBCUT (11:46)
[2024-03-05 11:49] LABS: BUN Creatinine Ratio 12.9 (6-22); Blood Urea Nitrogen 9 mg/dL (9-20); Carbon Dioxide 24 mmol/L (22-32); Chloride 102 mmol/L (98-107); Estimated Glomerular Filt Rate > 60 mL/min (>60); Glucose 111 mg/dL (80-110); HEMOLYSIS < 15 (0-50); Potassium 3.7 mmol/L (3.4-5.1); Sodium 135 mmol/L (137-145)
--- NOTE | 2024-03-05 12:19 | PC.NURSE ---
Addendum entered by Fabiola Hamm R.N. 03/05/24 13:55: Patients tube flushed with water, and he had 300cc out of pig tail that was thick, chunky, and green. Patient has had a total of about 1400cc out all together from his tube. Addendum entered by Fabiola Hamm R.N. 03/05/24 13:44: NG tube placed, 16f to LIS, patient is getting a cxr now to confirm placment. He tolerated procedure well. He has had 1100mls of light green bile out of his tube. Original Note: Assess- Patient is alert and oriented x4, He threw up about 50cc total this morning and states that he feels full. Given zofran and helpful with nausea. called and is aware that he threw up. Stated that we could place an NG Tube if needed. Gathered all supplies for NG tube and patient started to burp and pass gas, so he wanted to wait. He also ambulated in the halls with his and he is resting comfortably now. ML incision with js, all well approximated and cdi. He is watching television now and waiting to see the
--- NOTE | 2024-03-05 13:36 | DI.RAD.S_ITS ---
PROCEDURE: XR CHEST 1V INDICATIONS: NG tube placement TECHNIQUE: One view of the chest was acquired. COMPARISON: [facility], SERA, XR CHEST 2V, 02/14/2024, 13:30. [facility], SERA, CHEST 1 VIEW, 09/02/2017, 16:49. FINDINGS: Surgical changes and devices: Enteric tube loops in the stomach and terminates in the fundus. Lungs and pleura: Low lung volumes. Bibasilar scarring or atelectasis. Mediastinum: Normal heart size. Prominent gas-filled loops of bowel are present. Bones and chest wall: Degenerative changes. IMPRESSION: Enteric tube turns in the stomach and terminates at the fundus. Dictated by: Geovani Whiting M.D. on 03/05/2024 at 14:16 Approved by: Geovani Whiting M.D. on 03/05/2024 at 14:26
--- NOTE | 2024-03-05 13:52 | CM.DPC ---
DCP Continued: Reviewed EMR and team rounds for pt?s medical status. Pt is POD3 of removing colonic/small bowel mass. Per provider, pt will dc once able to advance diet. Per RN, pt had an episode of emesis this morning and not tolerating fluids well. RN stated an NG tube will be placed shortly, pt still not stable to dc home. Plan: Anticipating dc home with spouse when medically stable. No barriers identified at this time. CM Team will continue to follow for coordination of discharge plans. ANY Barney
[2024-03-05] MEDS: HYDROMORPHONE 0.5 MG INJ IV ×3 (14:41→22:16)
[2024-03-05] MEDS: SODIUM CHLORIDE 0.9% 1,000 ML 100 ML IV (14:50)
--- NOTE | 2024-03-05 15:03 | PM.PN.1 ---
Subjective Subjective Date Patient Seen: 03/05/24 Time Patient Seen: 15:03 Interval history: Andrae has had some nausea and vomiting today. Labs are normal. Exam Vital Signs (past 8 hours): - 03/05/24 07:37 Temperature 97.5 F L Pulse Rate 85 Respiratory Rate 21 Blood Pressure 121/69 Pulse Oximetry 97 Oxygen Flow Rate 0 Oxygen Delivery Method Room Air Oxygen Flow Rate 0 Narrative Exam Narrative: Abdomen is soft Incision clean dry and intact Objective Labs 03/05/24 11:15 03/05/24 11:15 Labs: Laboratory Results - last 24 hr 03/05/24 11:15 WBC 9.9 RBC 3.62 L Hgb 9.2 L Hct 28.5 L MCV 78.6 L MCH 25.4 L MCHC 32.3 RDW 22.4 H Plt Count 354 Neut % (Auto) 88.7 H Lymph % (Auto) 4.1 L Rolette % (Auto) 6.5 Eos % (Auto) 0.4 L Baso % (Auto) 0.3 Neut # (Auto) 8700 H Lymph # (Auto) 400 L Rolette # (Auto) 600 Eos # (Auto) 0 Baso # (Auto) 0 RBC Morphology See below Poikilocytosis 1+ H Anisocytosis 2+ H Schistocytes 1+ H Sodium 135 L Potassium 3.7 Chloride 102 Carbon Dioxide 24 BUN 9 Creatinine 0.70 Estimated GFR > 60 BUN/Creatinine Ratio 12.9 Glucose 111 H Calcium 8.0 L PFSH Medical History (Updated 03/03/24 @ 09:09 by Jw Ford MD) Chronic systolic heart failure Colon cancer BPH w urinary obs/LUTS Neurological disease High blood pressure Anticoagulation goal of INR 2 to 3 Dark stools Ischemic cardiomyopathy 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 infarction GERD (gastroesophageal reflux disease) Diverticular disease (2003) Foot pain (2013) Colorectal cancer (1990) Colon polyps (2009) Cataract Hearing loss (2012) Measles Rubella Guillain-[place] syndrome (~2001) 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 Peripheral neuropathy (2001) LV (left ventricular) mural thrombus (2016) Heart failure, diastolic (1996) Myocardial infarction (1996) CAD (coronary artery disease) Occipital cerebral infarction (09/06/17) 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 (09/06/17) Influenza B Scrotal swelling Epididymitis Diverticulitis large intestine Diverticulitis Surgical History History of hernia repair Anesthesia Status post coronary artery stent placement (01/2008) Status post tonsillectomy and adenoidectomy (2011) Status post colonoscopy (2012) Status post colectomy (1990) Family History Father Heart disease Colon cancer Hearing impairment Mother Stroke Heart disease Heart attack Social History marital status: number of children: 3 household members: spouse Smoking Status: Never smoker alcohol intake: former substance use type: does not use Assessment & Plan Assessment and plan (1) Postoperative examination: Status: Acute Plan Likely ileus Place NG tube Quality VTE Deep Vein Thrombosis/Pulmonary Embolism Present on Admission: No
[2024-03-06] MEDS: SODIUM CHLORIDE 0.9% 1,000 ML 100 ML IV (01:05)
[2024-03-06 01:07] VITALS: BP 124/54; PULSE 81; RESP 17; TEMP 36.2; O2SAT 98
[2024-03-06 05:56] LABS: Basophils Absolute Auto 0 /uL (0-100); Basophils Percent Auto 0.4 % (0-2); Eosinophils Absolute Auto 100 /uL (0-450); Eosinophils Percent Auto 2.4 % (2-4); Hematocrit 24.8 % (41-53); Hemoglobin 8.1 g/dL (13.5-17.5); Lymphocytes Absolute Auto 400 /uL (1100-4500); Lymphocytes Percent Auto 6.8 % (25-40); Mean Corpuscular HGB Conc 32.5 % (30-36); Mean Corpuscular Hemoglobin 25.4 PG (26-34); Mean Corpuscular Volume 78.2 fL (80-100); Monocytes Absolute Auto 500 /uL (0-900); Monocytes Percent Auto 8.1 % (3-14); Neutrophils Absolute Auto 5100 /uL (1500-7000); Neutrophils Percent Auto 82.3 % (50-75); Platelet Count 299 X10^3/uL (150-400); Red Blood Cell Count 3.17 X10^6/uL (4.5-5.9); White Blood Cell Count 6.2 X10^3/uL (4.5-11.0)
[2024-03-06 06:03] LABS: Add Manual Diff / Slide Review SLIDE REVIEW
--- NOTE | 2024-03-06 06:09 | PC.NURSE ---
Notified Dr. Ford @ [id number] due to patient accidentally pulling out Nasogastric tube. The patient is requesting to not have another one inserted due to having no abdominal pain or nausea. Dr. Ford states, okay to leave out for now, but keep the patient NPO.
[2024-03-06 06:30] LABS: Anisocytosis 2+; Microcytosis 1+
--- NOTE | 2024-03-06 08:11 | PM.PNPO.1 ---
Subjective Subjective Date Patient Seen: 03/06/24 Time Patient Seen: 08:11 Interval history: today he feels like eating eggs. Had NGT in briefly last evening due to distension but it got pulled out. no nausea Exam Vital Signs (past 8 hours): - 03/06/24 01:07 Temperature 97.1 F L Pulse Rate 81 Respiratory Rate 17 Blood Pressure 124/54 L Pulse Oximetry 98 Oxygen Delivery Method Room Air Oxygen Flow Rate 0 Const General: comfortable and No in distress Nutritional Appearance: average body habitus [facility] Head: normal to inspection, normocephalic and atraumatic Eyes Periorbital: periorbital findings normal Neck Neck: trachea midline Resp Effort & Inspection: normal respiratory effort and able to speak in complete sentences Cardio Rate: regular rate Rhythm: regular rhythm GI Palpation: soft and No tender Skin General: turgor normal and atrophy Neuro General: patient alert, patient awake and patient oriented x3 Cognition: normal cognition Extrem General: normal to inspection Psych Appearance: grossly normal Mental Status: mental status grossly normal Judgment: judgment good Objective Labs 03/06/24 05:25 03/05/24 11:15 Labs: Laboratory Results - last 24 hr 03/05/24 03/06/24 11:15 05:25 WBC 9.9 6.2 RBC 3.62 L 3.17 L Hgb 9.2 L 8.1 L Hct 28.5 L 24.8 L MCV 78.6 L 78.2 L MCH 25.4 L 25.4 L MCHC 32.3 32.5 RDW 22.4 H 22.0 H Plt Count 354 299 Neut % (Auto) 88.7 H 82.3 H Lymph % (Auto) 4.1 L 6.8 L [place] % (Auto) 6.5 8.1 Eos % (Auto) 0.4 L 2.4 Baso % (Auto) 0.3 0.4 Neut # (Auto) 8700 H 5100 Lymph # (Auto) 400 L 400 L [place] # (Auto) 600 500 Eos # (Auto) 0 100 Baso # (Auto) 0 0 RBC Morphology See below See below Poikilocytosis 1+ H Anisocytosis 2+ H 2+ H Microcytosis 1+ H Schistocytes 1+ H Sodium 135 L Potassium 3.7 Chloride 102 Carbon Dioxide 24 BUN 9 Creatinine 0.70 Estimated GFR > 60 BUN/Creatinine Ratio 12.9 Glucose 111 H Calcium 8.0 L [facility] Medical History (Updated 03/03/24 @ 09:09 by Jw Ford MD) Chronic systolic heart failure Colon cancer BPH w urinary obs/LUTS Neurological disease High blood pressure Anticoagulation goal of INR 2 to 3 Dark stools Ischemic cardiomyopathy 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 infarction GERD (gastroesophageal reflux disease) Diverticular disease (2003) Foot pain (2013) Colorectal cancer (1990) Colon polyps (2009) Cataract Hearing loss (2012) Measles Rubella Guillain-[place] syndrome (~2001) 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 Peripheral neuropathy (2001) LV (left ventricular) mural thrombus (2016) Heart failure, diastolic (1996) Myocardial infarction (1996) CAD (coronary artery disease) Occipital cerebral infarction (09/06/17) 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 (09/06/17) Influenza B Scrotal swelling Epididymitis Diverticulitis large intestine Diverticulitis Surgical History History of hernia repair Anesthesia Status post coronary artery stent placement (01/2008) Status post tonsillectomy and adenoidectomy (2011) Status post colonoscopy (2012) Status post colectomy (1990) Family History Father Heart disease Colon cancer Hearing impairment Mother Stroke Heart disease Heart attack Social History marital status: number of children: 3 household members: spouse Smoking Status: Never smoker alcohol intake: former substance use type: does not use Assessment & Plan Post-op Postoperative Procedures: Procedures Operation Date: 03/02/24 12:30 Actual Procedure Side Surgeon p SMALL BOWEL RESECTION, SIGMOID COLON RESECTION Jw Ford MD Postoperative status: doing well and post-op ileus Postoperative plan: advance diet Time Spent With Patient Time with patient: less than 15 minutes Quality VTE Deep Vein Thrombosis/Pulmonary Embolism Present on Admission: No
--- NOTE | 2024-03-06 08:43 | PC.NURSE ---
Patient is awake and he denies pain, abdomen is soft and non tender. Patient has bowel tones to his quadrants x4, hypoactive. He is tolerating his general diet thus far and denies any discomfort. Patients incision is open to air with js cdi.
--- NOTE | 2024-03-06 09:29 | PM.PN.1 ---
Subjective Subjective Date Patient Seen: 03/06/24 Time Patient Seen: 09:29 Interval history: Patient seen and evaluated this morning. NG tube came out in the middle of the night while he was sleeping. Patient states he feels much better this morning in fact he is eating breakfast. Having increased bowel activity he is hungry. Tolerating his diet looks and feels much better. Discussed care with the general surgeon this morning. Preliminary pathology results have come back as B-cell lymphoma. Reviewed the diagnosis with the patient and his today. Exam Vital Signs (past 8 hours): Oxygen Delivery Method Room Air Oxygen Flow Rate 0 Narrative Exam Narrative: Gen.: Alert oriented good historian difficulty with word finding HEENT: Pupils equal round and reactive or mucosa is moist neck is supple Cardio: S1-S2 regular rate and rhythm no murmurs appreciated. Respiratory: Lungs are clear to auscultation no wheezes or crackles normal respiratory effort. Abdomen: Incision is clean dry and intact nondistended. Extremities: Full range of motion no appreciable weakness no cyanosis or edema. Objective Labs 03/06/24 05:25 03/05/24 11:15 Labs: Laboratory Results - last 24 hr 03/05/24 03/06/24 11:15 05:25 WBC 9.9 6.2 RBC 3.62 L 3.17 L Hgb 9.2 L 8.1 L Hct 28.5 L 24.8 L MCV 78.6 L 78.2 L MCH 25.4 L 25.4 L MCHC 32.3 32.5 RDW 22.4 H 22.0 H Plt Count 354 299 Neut % (Auto) 88.7 H 82.3 H Lymph % (Auto) 4.1 L 6.8 L [place] % (Auto) 6.5 8.1 Eos % (Auto) 0.4 L 2.4 Baso % (Auto) 0.3 0.4 Neut # (Auto) 8700 H 5100 Lymph # (Auto) 400 L 400 L [place] # (Auto) 600 500 Eos # (Auto) 0 100 Baso # (Auto) 0 0 RBC Morphology See below See below Poikilocytosis 1+ H Anisocytosis 2+ H 2+ H Microcytosis 1+ H Schistocytes 1+ H Sodium 135 L Potassium 3.7 Chloride 102 Carbon Dioxide 24 BUN 9 Creatinine 0.70 Estimated GFR > 60 BUN/Creatinine Ratio 12.9 Glucose 111 H Calcium 8.0 L [facility] Medical History (Updated 03/06/24 @ 09:35 by Amandeep Olson MD) Chronic systolic heart failure Colon cancer BPH w urinary obs/LUTS Neurological disease High blood pressure Anticoagulation goal of INR 2 to 3 Dark stools Ischemic cardiomyopathy 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 infarction GERD (gastroesophageal reflux disease) Diverticular disease (2003) Foot pain (2013) Colorectal cancer (1990) Colon polyps (2009) Cataract Hearing loss (2012) Measles Rubella Guillain-[place] syndrome (~2001) 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 Peripheral neuropathy (2001) LV (left ventricular) mural thrombus (2016) Heart failure, diastolic (1996) Myocardial infarction (1996) CAD (coronary artery disease) Occipital cerebral infarction (09/06/17) 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 (09/06/17) Influenza B Scrotal swelling Epididymitis Diverticulitis large intestine Diverticulitis Surgical History History of hernia repair Anesthesia Status post coronary artery stent placement (01/2008) Status post tonsillectomy and adenoidectomy (2011) Status post colonoscopy (2012) Status post colectomy (1990) Family History Father Heart disease Colon cancer Hearing impairment Mother Stroke Heart disease Heart attack Social History marital status: number of children: 3 household members: spouse Smoking Status: Never smoker alcohol intake: former substance use type: does not use Assessment & Plan Assessment and plan (1) B-cell lymphoma of intra-abdominal lymph nodes: Qualifiers: B-cell lymphoma type: unspecified B-cell Qualified Code(s): C85.13 - Unspecified B-cell lymphoma, intra-abdominal lymph nodes Status: Acute Plan Postop day 4 Removal of colonic and small bowel mass. Preliminary pathology results were given to the surgeon which showed B-cell lymphoma. Reviewed the diagnosis with patient and today about B-cell lymphoma. Patient has a history of colon cancer many years ago underwent treatment with chemotherapy no radiation. Says cancers common and his siblings especially colon cancer. We will arrange for outpatient further workup and oncology referral for lymphoma. Await official pathology results. Postoperative ileus resolved Acute on chronic blood-loss anemia. Patient's hemoglobin hematocrit stable. Patient needs to be back on his iron supplementation. Coronary artery disease with history of myocardial infarction without current underlying myocardial ischemia continue with beta-varghese statin and Plavix. Atrial fibrillation chronic. Patient off anticoagulation. Re-engage anticoagulation when blood counts are more stable and recovered from surgery. Cerebrovascular accident history of patient off anticoagulation he is on Plavix. He has no neurological symptoms which are new has a known history of carotid artery stenosis Chronic systolic congestive heart failure with cardiomyopathy. Stop IV fluids. BPH. Patient is voiding without obstruction continue with Flomax and finasteride Disposition and plan. Ambulate DC IV fluids pain is well controlled medically stable for discharge tomorrow Quality VTE Deep Vein Thrombosis/Pulmonary Embolism Present on Admission: No
[2024-03-06] MEDS: SPIRONOLACTONE 25 MG TABLET 12.5 MG PO (09:32)
[2024-03-06] MEDS: METOPROLOL ER 25 MG TABLET PO ×2 (09:33→21:07)
[2024-03-06] MEDS: ENOXAPARIN 40 MG/0.4 ML SYRINGE SUBCUT (09:33)
[2024-03-06] MEDS: ATORVASTATIN 20 MG TABLET PO (09:33)
[2024-03-06] MEDS: FINASTERIDE 5 MG TABLET PO (09:33)
[2024-03-06 12:50] VITALS: BP 124/62; PULSE 96; RESP 18; TEMP 36.5; O2SAT 99
[2024-03-06] MEDS: ASCORBIC ACID 500 MG TABLET 250 MG PO (15:39)
[2024-03-06] MEDS: FERROUS SULFATE 325 MG TABLET PO (15:39)
[2024-03-06 20:42] VITALS: BP 125/77; PULSE 91; RESP 15; TEMP 36.4; O2SAT 97
[2024-03-06] MEDS: TAMSULOSIN 0.4 MG CAPSULE 0.8 MG PO (21:07)
[2024-03-06] MEDS: MELATONIN 3 MG TABLET PO (21:07)
[2024-03-06 21:50] VITALS: BP 127/74
[2024-03-07 07:55] LABS: Hematocrit 24.7 % (41-53); Hemoglobin 8.1 g/dL (13.5-17.5); Mean Corpuscular HGB Conc 32.9 % (30-36); Mean Corpuscular Hemoglobin 25.6 PG (26-34); Platelet Count 330 X10^3/uL (150-400); Red Blood Cell Count 3.17 X10^6/uL (4.5-5.9); White Blood Cell Count 7.2 X10^3/uL (4.5-11.0)
[2024-03-07 08:02] LABS: BUN Creatinine Ratio 18.8 (6-22); Blood Urea Nitrogen 12 mg/dL (9-20); Calcium 7.6 mg/dL (8.4-10.2); Carbon Dioxide 22 mmol/L (22-32); Chloride 108 mmol/L (98-107); Estimated Glomerular Filt Rate > 60 mL/min (>60); Glucose 94 mg/dL (80-110); HEMOLYSIS < 15 (0-50); Potassium 3.3 mmol/L (3.4-5.1); Sodium 136 mmol/L (137-145)
[2024-03-07 08:15] VITALS: BP 124/88; PULSE 73; RESP 18; TEMP 36.2; O2SAT 97
[2024-03-07 08:24] VITALS: BP 124/88; PULSE 74
[2024-03-07] MEDS: LOSARTAN 25 MG TABLET 75 MG PO (08:24)
[2024-03-07] MEDS: ENOXAPARIN 40 MG/0.4 ML SYRINGE SUBCUT (08:24)
[2024-03-07] MEDS: SPIRONOLACTONE 25 MG TABLET 12.5 MG PO (08:24)
[2024-03-07] MEDS: ATORVASTATIN 20 MG TABLET PO (08:25)
[2024-03-07] MEDS: POTASSIUM CHLORIDE 20 MEQ TAB 40 MEQ PO (08:25)
[2024-03-07] MEDS: ASCORBIC ACID 500 MG TABLET 250 MG PO (08:25)
[2024-03-07 08:26] VITALS: BP 124/88; PULSE 74
[2024-03-07] MEDS: METOPROLOL ER 25 MG TABLET PO (08:26)
[2024-03-07] MEDS: FINASTERIDE 5 MG TABLET PO (08:27)
[2024-03-07] MEDS: FERROUS SULFATE 325 MG TABLET PO (08:28)
--- NOTE | 2024-03-07 12:56 | CM.DPNOTE ---
DC Note Patient is being discharged home today by Dr Arredondo. Met with patient and spouse to review discharge plan. Discussed home health services. Patient/spouse feel it is a good idea. Reviewed MCR choice list, no HH preference. According to calendar rotation; [facility] in line for the referral although RN is not available for another week and half. Referral, including completed F2F, HH order, face sheet, OP note and Dr Olson's consult note emailed to Barbara at [facility] (next agency on rotation), awaiting feedback on acceptance. Plan: Discharge home with spouse, services. Close outpatient follow up. KASEY
--- NOTE | 2024-03-10 12:06 | CM.DPNOTE ---
DCP Note From Barbara at [facility], able to accept pt for services. Working on getting him on the schedule now. REBECCA
--- NOTE | 2024-03-15 10:17 | PM.DS.1 ---
History of Present Illness History of Present Illness Date Patient Seen: 03/15/24 Time Patient Seen: 10:17 Chief complaint: Small-bowel sigmoid mass Narrative: S/p partial colectomy and small bowel resection for sigmoid mass. No complications. Post op ileus resolved. Discharge Providers Provider Date of admission: 03/02/24 10:43 Discharge Date: 03/13/24 Primary care physician: Amandeep Olson MD Consults: 03/07/24 13:03 Consult to Home Health Routine Comment: Reason For Exam: Home health services upon discharge Discharge provider: Shi Rueda MD Summary Hospital Course Discharge Diagnosis: lymphoma. s/p combined partial colectomy and small bowel resection. Hospital Course: S/p sigmoid colectomy and portion of small bowel. Has post op ileus o/w no complications. Doing well and ready for discharge Status at Discharge Cognitive/behavioral status at discharge: at baseline, oriented Functional status at discharge: independent ambulation Overall status at discharge: patient is progressing back to baseline Time Spent with Patient Time spent: Less than 30 minutes Exam Vital Signs (past 8 hours): Oxygen Delivery Method Room Air Oxygen Flow Rate 0 Objective Labs 03/07/24 07:43 03/07/24 07:43 [facility] Medical History Chronic systolic heart failure Colon cancer BPH w urinary obs/LUTS Neurological disease High blood pressure Anticoagulation goal of INR 2 to 3 Dark stools Ischemic cardiomyopathy 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 infarction GERD (gastroesophageal reflux disease) Diverticular disease (2003) Foot pain (2013) Colorectal cancer (1990) Colon polyps (2009) Cataract Hearing loss (2012) Measles Rubella Guillain-[place] syndrome (~2001) 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 Peripheral neuropathy (2001) LV (left ventricular) mural thrombus (2016) Heart failure, diastolic (1996) Myocardial infarction (1996) CAD (coronary artery disease) Occipital cerebral infarction (09/06/17) 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 (09/06/17) Influenza B Scrotal swelling Epididymitis Diverticulitis large intestine Diverticulitis Surgical History History of hernia repair Anesthesia Status post coronary artery stent placement (01/2008) Status post tonsillectomy and adenoidectomy (2011) Status post colonoscopy (2012) Status post colectomy (1990) Family History Father Heart disease Colon cancer Hearing impairment Mother Stroke Heart disease Heart attack Social History marital status: number of children: 3 household members: spouse Smoking Status: Never smoker alcohol intake: former substance use type: does not use Discharge Plan Discharge Plan Patient Disposition: Home Health Service Discharge orders & Medications Prescriptions: New hydrocodone-acetaminophen 5-325 mg Tablet 1 tab PO Q4H PRN (Reason: Pain, Moderate (4-6)) Qty: 20 0RF Continued ascorbic acid (vitamin C) 250 mg tablet 250 mg PO DAILY Qty: 90 3RF spironolactone 25 mg tablet 12.5 mg PO DAILY multivitamin [Multiple Vitamins] 1 EACH tablet 1 tab PO QDAY Qty: 0 rosuvastatin 10 MG tablet 10 mg PO QDAY Qty: 0 tamsulosin 0.4 mg capsule 0.8 mg PO BEDTIME Qty: 180 3RF finasteride 5 mg tablet 5 mg PO DAILY Qty: 90 3RF cholecalciferol (vitamin D3) 2,000 unit capsule 2,000 unit PO DAILY pantoprazole 40 mg tablet,delayed release (DR/EC) 40 mg PO DAILY Qty: 30 3RF losartan 50 mg tablet 75 mg PO DAILY Patient Comments: 25mg qam, 50mg qbedtime Rx Instructions: 1/2 in the morning and 1 tablet in the evening for total daily dose of 75mg/day metoprolol succinate 25 mg tablet extended release 24 hr 25 mg PO BID ferrous sulfate 325 mg (65 mg iron) tablet 325 mg PO DAILY Qty: 90 0RF Follow up/Referrals: Jw Ford MD [Physician] - Amandeep Olson MD [Primary Care Provider] - Diet/Activity/Treatments Diet: Diet as Tolerated Activity: no lifting greater than 15 lbs for 4 weeks Skin/Wound/Dressing Care Report to your healthcare provider any signs of infection, such as:: chills, fever, increased pain, unusual drainage and unusual redness Visit Report/Discharge Packet Instructions: DI for Colectomy, DI for Prescription Opioid Use, [facility]: Wound Care Stand Alone Forms: Patient Portal/API, Stroke Signs & Symptoms, Surgery Discharge Discharge Data Primary Care Provider: Amandeep Olson VTE Deep Vein Thrombosis/Pulmonary Embolism Present on Admission: No
== END 2024-03-07 12:27 | disposition home health service (06) | DRG 821 ==
PROVIDERS: Hospitalist; Admitting Provider Surgery; Family Provider Family Medicine; PCP Family Medicine; Referring Provider Surgery; Visit Provider Surgery
PROC: 0DBN0ZZ Excision of Sigmoid Colon, Open Approach (ICD-10-PCS; CPT 44140; principal; 2024-03-02 12:30)
DX: C85.13 Unspecified B-cell lymphoma, intra-abdominal lymph nodes (principal); D62 Acute posthemorrhagic anemia; I50.22 Chronic systolic (congestive) heart failure; K92.2 Gastrointestinal hemorrhage, unspecified; I48.20 Chronic atrial fibrillation, unspecified; K91.89 Other postprocedural complications and disorders of digestive system; K56.7 Ileus, unspecified; I25.10 Atherosclerotic heart disease of native coronary artery without angina pectoris; I25.2 Old myocardial infarction; I65.29 Occlusion and stenosis of unspecified carotid artery; N40.0 Benign prostatic hyperplasia without lower urinary tract symptoms; K21.9 Gastro-esophageal reflux disease without esophagitis; Z86.73 Personal history of transient ischemic attack (TIA), and cerebral infarction without residual deficits; Z85.038 Personal history of other malignant neoplasm of large intestine
CPT/HCPCS: 36415; 71045; 80048; 85014; 85018; 85025; 85027; 93005; 99232; 99233; J0330; J1100; J1170; J1650; J2405; J2704; J3010

== ENCOUNTER → 2024-03-19 13:43 | Outpatient (CLI) | payer MEDICARE, SELFPAY ==
[2024-03-02 10:53] VITALS: BMI 26.4
[2024-03-19 16:18] LABS: Prostate Specific Antigen 2.93 ng/mL (0.10-4.00)
== END ==
LOC: LAB 13:43
PROVIDERS: Family Provider Family Medicine; PCP Family Medicine; Referring Provider Specialist; Visit Provider Specialist
DX: N40.1 Benign prostatic hyperplasia with lower urinary tract symptoms (principal); N13.8 Other obstructive and reflux uropathy
CPT/HCPCS: 36415; 84153

== ENCOUNTER → 2024-03-28 10:29 | Outpatient (CLI) | payer MEDICARE, SELFPAY ==
[2024-03-02 10:53] VITALS: BMI 26.4
[2024-03-28 11:25] LABS: Add Manual Diff / Slide Review NO; Basophils Absolute Auto 100 /uL (0-100); Basophils Percent Auto 0.7 % (0-2); Eosinophils Absolute Auto 200 /uL (0-450); Eosinophils Percent Auto 2.6 % (2-4); Hematocrit 29.8 % (41-53); Hemoglobin 9.6 g/dL (13.5-17.5); Lymphocytes Absolute Auto 700 /uL (1100-4500); Lymphocytes Percent Auto 10.2 % (25-40); Mean Corpuscular HGB Conc 32.2 % (30-36); Mean Corpuscular Hemoglobin 24.6 PG (26-34); Mean Corpuscular Volume 76.4 fL (80-100); Monocytes Absolute Auto 700 /uL (0-900); Monocytes Percent Auto 9.8 % (3-14); Neutrophils Absolute Auto 5600 /uL (1500-7000); Neutrophils Percent Auto 76.7 % (50-75); Platelet Count 288 X10^3/uL (150-400); Red Cell Distribution Width 20.8 % (11.6-14.8); White Blood Cell Count 7.3 X10^3/uL (4.5-11.0)
[2024-03-28 11:40] LABS: Iron 23 ug/dL (49-181)
[2024-03-28 12:05] LABS: Acanthocytes 1+; Anisocytosis 2+
[2024-03-28 12:07] LABS: Microcytosis 1+
== END ==
PROVIDERS: Family Provider Family Medicine; PCP Family Medicine; Referring Provider Physician Assistant; Visit Provider Physician Assistant
DX: D50.9 Iron deficiency anemia, unspecified (principal); C85.13 Unspecified B-cell lymphoma, intra-abdominal lymph nodes
CPT/HCPCS: 36415; 83540; 85025

== ENCOUNTER 2024-03-31 11:33 | Emergency (ER) | payer MEDICARE, SELFPAY ==
[2024-03-02 10:53] VITALS: BMI 26.4
[2024-03-31] VITALS (8 sets, daily range): BP systolic 107–158; BP diastolic 59–69; PULSE 56–93; RESP 17–18; TEMP 35.8; O2SAT 97–100; BMI 25.3
--- NOTE | 2024-03-31 11:49 | ED.ABDPAIN ---
HPI - Abdominal Pain General Chief Complaint: Abdominal Pain Stated Complaint: Both Sides Abd Pain, No appetite Time Seen by Provider: 03/31/24 11:38 Source: patient and family Mode of arrival: Wheelchair History of Present Illness HPI narrative: 83-year-old male with history of recently diagnosed B-cell lymphoma presents by private vehicle for generalized lower abdominal pain and decreased p.o. intake. Patient underwent resection mass in his abdomen on 03/02/[address] Ford in order to debulk some of the disease burden. Patient states that he was initially recovering well but approximately 2 weeks ago he began to have a return of pain. Approximately 4 days ago his pain worsened and he eventually decided today to seek evaluation in the emergency department. He is pending an appointment with oncology next week. He is not currently on any chemo or radiation treatments. Related Data Home Medications Medication Instructions Recorded Confirmed multivitamin (Multiple Vitamins 1 tab PO QDAY ##0 08/15/11 03/24/24 tablet) rosuvastatin 10 mg tablet 10 mg PO QDAY ##0 09/02/17 03/24/24 cholecalciferol (vitamin D3) 50 2,000 unit PO DAILY 06/25/18 03/24/24 mcg (2,000 unit) capsule spironolactone 25 mg tablet 12.5 mg PO DAILY 08/30/22 03/24/24 losartan 50 mg tablet 75 mg PO DAILY 01/21/24 03/24/24 metoprolol succinate 25 mg 25 mg PO BID 01/21/24 03/24/24 tablet,extended release 24 hr Previous Rx's Medication Instructions Recorded ascorbic acid (vitamin C) 250 mg 250 mg PO DAILY #90 tabs 11/09/21 tablet ferrous sulfate 325 mg (65 mg 325 mg PO DAILY #90 tabs 01/24/24 iron) tablet pantoprazole 40 mg tablet,delayed 40 mg PO DAILY #30 tabs 02/13/24 release finasteride 5 mg tablet 5 mg PO DAILY #90 tabs 02/18/24 hydrocodone 5 mg-acetaminophen 325 1 tab PO Q4H PRN Pain, Moderate 03/07/24 mg tablet (4-6) #20 tabs tamsulosin 0.4 mg capsule 0.8 mg (2 x 0.4 mg) PO ONCE PM #20 03/16/24 caps oxycodone-acetaminophen 5 mg-325 1 tab PO Q4-6H PRN pain #20 tabs 03/31/24 mg tablet Allergies Allergy/AdvReac Type Severity Reaction Status Date / Time Influenza Virus Vaccines Allergy Unknown Verified 03/31/24 11:48 [INFLUENZA VIRUS VACCINES] Patient History Medical History Family history of prostate cancer in father Chronic systolic heart failure Colon cancer BPH w urinary obs/LUTS Neurological disease High blood pressure Anticoagulation goal of INR 2 to 3 Dark stools Ischemic cardiomyopathy 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 infarction GERD (gastroesophageal reflux disease) Diverticular disease (2003) Foot pain (2013) Colorectal cancer (1990) Colon polyps (2009) Cataract Hearing loss (2012) Measles Rubella Guillain-Barton syndrome (~2001) 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 Peripheral neuropathy (2001) LV (left ventricular) mural thrombus (2016) Heart failure, diastolic (1996) Myocardial infarction (1996) CAD (coronary artery disease) Occipital cerebral infarction (09/06/17) 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 (09/06/17) Influenza B Scrotal swelling Epididymitis Diverticulitis large intestine Diverticulitis Surgical History History of hernia repair Anesthesia Status post coronary artery stent placement (01/2008) Status post tonsillectomy and adenoidectomy (2011) Status post colonoscopy (2012) Status post colectomy (1990) Family History Father Heart disease Colon cancer Hearing impairment Mother Stroke Heart disease Heart attack Social History marital status: number of children: 3 household members: spouse Smoking Status: Never smoker alcohol intake: former substance use type: does not use Smoking Status: Never smoker Substance Use Type: does not use Exam Initial Vital Signs Initial Vital Signs: Vital Signs Pulse Rate 93 H 03/31/24 11:41 Pulse Oximetry 99 03/31/24 11:41 Const: Awake, alert, no acute distress, frail, appears chronically unwell Cardiac: regular rate, regular rhythm RESP: unlabored, clear bilaterally, no wheezing GI: Soft, generalized lower abdominal tenderness to deep palpation without rebound or guarding Skin: Surgical site clean, dry, well healed Neuro: AO x3, CN II-XII grossly intact, moves all extremities Course Orders Ordered: Discontinued Medications Sodium Chloride (Normal Saline 0.9%) 1,000 mls @ 1,000 mls/hr IV BOLUS ONE Stop: 03/31/24 12:45 Last Infusion: 03/31/24 13:38 Dose: Infused Documented By: Admin: 03/31/24 12:06 Dose: 1,000 mls/hr Documented By: SHAILESH Morphine Sulfate (Morphine 4 Mg/Ml Inj) 4 mg IV NOW ONE Stop: 03/31/24 11:47 Last Admin: 03/31/24 12:06 Dose: 4 mg Documented By: SHAILESH Vital Signs Vital signs: Vital Signs - 8 hr 03/31/24 11:41 03/31/24 11:44 03/31/24 12:00 Temperature 96.5 F L Pulse Rate 93 H 87 78 Respiratory Rate 18 Blood Pressure 158/63 H Pulse Oximetry 99 97 98 Oxygen Delivery Method Room Air 03/31/24 12:01 03/31/24 12:01 03/31/24 12:30 Temperature Pulse Rate 79 56 L Respiratory Rate Blood Pressure 107/59 L Pulse Oximetry 98 98 Oxygen Delivery Method 03/31/24 12:30 03/31/24 13:00 03/31/24 13:30 Temperature Pulse Rate 78 74 Respiratory Rate Blood Pressure 132/61 Pulse Oximetry 100 98 Oxygen Delivery Method 03/31/24 13:57 Temperature Pulse Rate 75 Respiratory Rate 17 Blood Pressure 133/69 Pulse Oximetry 99 Oxygen Delivery Method Room Air MDM - Abdominal Pain Differential Diagnosis Differential diagnosis: Likely abdominal pain, acute appendicitis and calculus of kidney Lab Data 03/31/24 11:55 03/31/24 11:55 Labs: Lab Results 03/31/24 03/31/24 Range/Units 11:55 13:40 WBC 8.4 (4.5-11.0) X10^3/uL RBC 4.08 L (4.5-5.9) X10^6/uL Hgb 9.9 L (13.5-17.5) g/dL Hct 31.2 L (41-53) % MCV 76.4 L (80-100) fL MCH 24.3 L (26-34) PG MCHC 31.8 (30-36) % RDW 20.6 H (11.6-14.8) % Plt Count 296 (150-400) X10^3/uL Neut % (Auto) 77.2 H (50-75) % Lymph % (Auto) 11.1 L (25-40) % [place] % (Auto) 8.8 (3-14) % Eos % (Auto) 2.3 (2-4) % Baso % (Auto) 0.6 (0-2) % Neut # (Auto) 6500 (7682-8444) /uL Lymph # (Auto) 900 L (4269-4560) /uL [place] # (Auto) 700 (0-900) /uL Eos # (Auto) 200 (0-450) /uL Baso # (Auto) 100 (0-100) /uL RBC Morphology See below Anisocytosis 2+ H Microcytosis 1+ H Schistocytes 1+ H Sodium 137 (137-145) mmol/L Potassium 3.8 (3.4-5.1) mmol/L Chloride 105 (98-107) mmol/L Carbon Dioxide 26 (22-32) mmol/L BUN 20 (9-20) mg/dL Creatinine 0.79 (0.66-1.25) mg/dL Estimated GFR > 60 (>60) mL/min BUN/Creatinine Ratio 25.3 H (6-22) Glucose 96 (80-110) mg/dL Lactate 2.3 H 1.5 (0.7-2.1) mmol/L Calcium 9.5 (8.4-10.2) mg/dL Total Bilirubin 0.5 (0.2-1.3) mg/dL AST 22 (17-59) IU/L ALT 14 (<50) IU/L Alkaline Phosphatase 77 (38-126) U/L Total Protein 6.1 L (6.3-8.2) g/dL Albumin 3.7 (3.5-5.0) g/dL Globulin 2.4 (1.7-4.1) g/dL Albumin/Globulin Ratio 1.5 (1.0-2.8) Imaging Data CT scan - abdomen/pelvis: Radiologist's Impression: PROCEDURE: CT ABDOMEN PELVIS W CON INDICATIONS: RLQ PAIN X 2 WKS, RECENT COLECTOMY TECHNIQUE: After the administration of intravenous contrast, axial sections acquired from the lung bases to the pubic symphysis. Coronal and sagittal reformats were performed. For radiation dose reduction, the following was used: automated exposure control, adjustment of mA and/or kV according to patient size. COMPARISON: [facility], CT, CT ABDOMEN PELVIS W CON, 02/15/2024, 9:47. FINDINGS: Image quality: Diagnostic. Lower Chest: No significant findings. ABDOMEN: Liver: No solid mass. Gallbladder: No radiopaque gallstones or wall thickening. Biliary ducts: No biliary dilation. Pancreas: No ductal dilation. Spleen: Size is within normal limits. Adrenal Glands: No adrenal nodules. Kidneys and Ureters: No hydronephrosis. No solid mass. No complex renal cystic lesion which requires follow up. Stomach and Bowel: Postsurgical changes reflecting partial colectomy are noted. Colonic diverticular present without inflammatory change. In the interval since the prior exam of 02/15/2024, there has been development of multiple soft tissue densities within the abdomen. The largest is identified anteriorly measuring 8.4 x 9.3 cm. In addition soft tissue densities are also present in the aortocaval and periaortic region the largest in the left periaortic measuring 4.8 x 5.2 cm. Anterior lower pelvic mass is present measuring 6.6 x 5.4 cm on series 2, image 77 located at the site of the previously identified colonic malignancy. It has overall decreased in size compared to prior exam, at which time it measured 9.1 x 6.8 cm. In addition, soft tissue mass is present in the retrocrural region on series 2, image 28 measuring 2.8 x 3.0 cm. Hounsfield units of multiple areas of soft tissue density range from 50-60. Minimal dependent fluid is present in the pelvis. Ventral Wall: No significant ventral hernia. Abdominal Nodes: No retroperitoneal or mesenteric adenopathy by size criteria. Vessels: Aorta and inferior vena cava are normal in size. PELVIS: Pelvic Organs: Unremarkable. Bladder: No bladder wall thickening, accounting for underdistention. Pelvic Nodes: No enlarged lymph nodes. Miscellaneous: No inguinal hernias are seen. Bones: No aggressive osseous abnormality. IMPRESSION: Interval development of multiple soft tissue masses within the abdomen pelvis including areas in the mesentery as well as aortocaval and periaortic regions. Overall appearance is highly suspicious for interval progression of metastatic disease. However, given Hounsfield units of some lesions hovering within the range of hematoma, postoperative hematoma should also be considered particularly the largest anterior mesenteric lesion. Dictated by: Candace Desir M.D. on 03/31/2024 at 12:56 Approved by: Candace Desir M.D. on 03/31/2024 at 13:04 MDM Narrative Medical decision making narrative: Initial improvement in abdominal pain after resection surgery, however now progressively worsening, especially so in the last 4 days. Abdomen is soft but is diffusely tender in the lower quadrants. Based on patient's recent surgical history laboratory work and CT imaging will be ordered. Laboratory work significant for WBC count 8.4, hemoglobin 9.9, platelets 296, sodium 137, potassium 3.8, creatinine 0.79, normal liver enzymes. CT of the abdomen and pelvis shows extensive soft tissue masses in the abdomen and pelvis. One of the masses could possibly be hematoma based on Hounsfield units. Discussed with general surgeon Dr. Ford, who reviewed the films and states that this is likely a progression of patient's cancer. I sat down at bedside with the patient and his . I relayed the results of the CT scan as well as the likely very aggressive return of soft tissue masses. I recommended calling the oncology office to expedite their follow up appointment. Pain medications sent to pharmacy of choice. Discharge Plan Departure Patient Disposition: Home Clinical Impression: Abdominal pain, Abdominal mass Instructions: DI for Abdominal Pain-Adult Activity Restrictions/Additional Instructions: Unfortunately your CT today showed that there are multiple soft tissue masses that have grown in the place of your previous surgery. This is highly concerning for worsening of your lymphoma. Call your oncology office to see if you can expedite your appointment. Pain medication has been sent to the [facility] in [place]. Take this with laxatives as it may cause constipation Prescriptions: New oxycodone-acetaminophen 5-325 mg tablet 1 tab PO Q4-6H PRN (Reason: pain) Qty: 20 0RF No Action ascorbic acid (vitamin C) 250 mg tablet 250 mg PO DAILY Qty: 90 3RF spironolactone 25 mg tablet 12.5 mg PO DAILY multivitamin [Multiple Vitamins] 1 EACH tablet 1 tab PO QDAY Qty: 0 rosuvastatin 10 MG tablet 10 mg PO QDAY Qty: 0 finasteride 5 mg tablet 5 mg PO DAILY Qty: 90 3RF tamsulosin 0.4 mg capsule 0.8 mg PO ONCE PM Qty: 20 0RF cholecalciferol (vitamin D3) 2,000 unit capsule 2,000 unit PO DAILY pantoprazole 40 mg tablet,delayed release (DR/EC) 40 mg PO DAILY Qty: 30 3RF losartan 50 mg tablet 75 mg PO DAILY Patient Comments: 25mg qam, 50mg qbedtime Rx Instructions: 1/2 in the morning and 1 tablet in the evening for total daily dose of 75mg/day metoprolol succinate 25 mg tablet extended release 24 hr 25 mg PO BID ferrous sulfate 325 mg (65 mg iron) tablet 325 mg PO DAILY Qty: 90 0RF hydrocodone-acetaminophen 5-325 mg Tablet 1 tab PO Q4H PRN (Reason: Pain, Moderate (4-6)) Qty: 20 0RF Referrals: Amandeep Olson MD [Primary Care Provider] - Stand Alone Forms: Patient Portal/API
[2024-03-31 12:06] LABS: Add Manual Diff / Slide Review NO; Basophils Absolute Auto 100 /uL (0-100); Basophils Percent Auto 0.6 % (0-2); Eosinophils Absolute Auto 200 /uL (0-450); Eosinophils Percent Auto 2.3 % (2-4); Hematocrit 31.2 % (41-53); Hemoglobin 9.9 g/dL (13.5-17.5); Lymphocytes Absolute Auto 900 /uL (1100-4500); Lymphocytes Percent Auto 11.1 % (25-40); Mean Corpuscular HGB Conc 31.8 % (30-36); Mean Corpuscular Hemoglobin 24.3 PG (26-34); Mean Corpuscular Volume 76.4 fL (80-100); Monocytes Absolute Auto 700 /uL (0-900); Monocytes Percent Auto 8.8 % (3-14); Neutrophils Absolute Auto 6500 /uL (1500-7000); Neutrophils Percent Auto 77.2 % (50-75); Platelet Count 296 X10^3/uL (150-400); Red Blood Cell Count 4.08 X10^6/uL (4.5-5.9); Red Cell Distribution Width 20.6 % (11.6-14.8); White Blood Cell Count 8.4 X10^3/uL (4.5-11.0)
[2024-03-31] MEDS: MORPHINE 4 MG/ML INJ IV (12:06)
[2024-03-31] MEDS: SODIUM CHLORIDE 0.9% 1,000 ML 1000 ML IV (12:06)
--- NOTE | 2024-03-31 12:08 | EKG_ITS ---
[place] [id number] [address] [place] [id number] Test Date: 2024-03-31 Pat Name: Cody Franco Department: [facility] Room: Gender: Male Still Tender: ELVIRA : 1940 Requested By: Order Number: [id number] Reading MD: Josep Rodriguez Measurements Intervals [place] Rate: 77 P: 27 MN: 184 QRS: -35 QRSD: 106 T: 9 QT: 384 QTc: 434 Interpretive Statements Sinus rhythm with premature supraventricular complexes and with occasional premature ventricular complexes Left axis deviation Low voltage QRS Inferior infarct , age undetermined Cannot rule out Anterior infarct , age undetermined Electronically Signed On 04-01-2024 18:38:07 PDT by Josep Rodriguez
[2024-03-31 12:14] LABS: Lactate (Lactic Acid) 2.3 mmol/L (0.7-2.1)
[2024-03-31 12:25] LABS: Anisocytosis 2+; Microcytosis 1+
[2024-03-31 12:26] LABS: Alanine Aminotransferase 14 IU/L (<50); Albumin 3.7 g/dL (3.5-5.0); Albumin Globulin Ratio 1.5 (1.0-2.8); Alkaline Phosphatase 77 U/L (38-126); Aspartate Aminotransferase 22 IU/L (17-59); BUN Creatinine Ratio 25.3 (6-22); Bilirubin Total 0.5 mg/dL (0.2-1.3); Blood Urea Nitrogen 20 mg/dL (9-20); Calcium 9.5 mg/dL (8.4-10.2); Carbon Dioxide 26 mmol/L (22-32); Chloride 105 mmol/L (98-107); Estimated Glomerular Filt Rate > 60 mL/min (>60); Globulin 2.4 g/dL (1.7-4.1); Glucose 96 mg/dL (80-110); HEMOLYSIS < 15 (0-50); Potassium 3.8 mmol/L (3.4-5.1); Sodium 137 mmol/L (137-145); Total Protein 6.1 g/dL (6.3-8.2)
[2024-03-31 12:30] LABS: Schistocytes 1+
--- NOTE | 2024-03-31 13:00 | DI.CT.S_ITS ---
PROCEDURE: CT ABDOMEN PELVIS W CON INDICATIONS: RLQ PAIN X 2 WKS, RECENT COLECTOMY TECHNIQUE: After the administration of intravenous contrast, axial sections acquired from the lung bases to the pubic symphysis. Coronal and sagittal reformats were performed. For radiation dose reduction, the following was used: automated exposure control, adjustment of mA and/or kV according to patient size. COMPARISON: [facility], CT, CT ABDOMEN PELVIS W CON, 02/15/2024, 9:47. FINDINGS: Image quality: Diagnostic. Lower Chest: No significant findings. ABDOMEN: Liver: No solid mass. Gallbladder: No radiopaque gallstones or wall thickening. Biliary ducts: No biliary dilation. Pancreas: No ductal dilation. Spleen: Size is within normal limits. Adrenal Glands: No adrenal nodules. Kidneys and Ureters: No hydronephrosis. No solid mass. No complex renal cystic lesion which requires follow up. Stomach and Bowel: Postsurgical changes reflecting partial colectomy are noted. Colonic diverticular present without inflammatory change. In the interval since the prior exam of 02/15/2024, there has been development of multiple soft tissue densities within the abdomen. The largest is identified anteriorly measuring 8.4 x 9.3 cm. In addition soft tissue densities are also present in the aortocaval and periaortic region the largest in the left periaortic measuring 4.8 x 5.2 cm. Anterior lower pelvic mass is present measuring 6.6 x 5.4 cm on series 2, image 77 located at the site of the previously identified colonic malignancy. It has overall decreased in size compared to prior exam, at which time it measured 9.1 x 6.8 cm. In addition, soft tissue mass is present in the retrocrural region on series 2, image 28 measuring 2.8 x 3.0 cm. Hounsfield units of multiple areas of soft tissue density range from 50-60. Minimal dependent fluid is present in the pelvis. Ventral Wall: No significant ventral hernia. Abdominal Nodes: No retroperitoneal or mesenteric adenopathy by size criteria. Vessels: Aorta and inferior vena cava are normal in size. PELVIS: Pelvic Organs: Unremarkable. Bladder: No bladder wall thickening, accounting for underdistention. Pelvic Nodes: No enlarged lymph nodes. Miscellaneous: No inguinal hernias are seen. Bones: No aggressive osseous abnormality. IMPRESSION: Interval development of multiple soft tissue masses within the abdomen pelvis including areas in the mesentery as well as aortocaval and periaortic regions. Overall appearance is highly suspicious for interval progression of metastatic disease. However, given Hounsfield units of some lesions hovering within the range of hematoma, postoperative hematoma should also be considered particularly the largest anterior mesenteric lesion. Dictated by: Candace Desir M.D. on 03/31/2024 at 12:56 Approved by: Candace Desir M.D. on 03/31/2024 at 13:04
[2024-03-31 13:35] LABS: Reflexed Lactate in 2 Hours Y
[2024-03-31 13:57] LABS: Lactate 2HR (Lactic Acid Rflx) 1.5 mmol/L (0.7-2.1)
== END 2024-03-31 14:11 | disposition home or self-care (01) ==
PROVIDERS: Emergency Provider Emergency Medicine; Family Provider Family Medicine; PCP Family Medicine
DX: R10.30 Lower abdominal pain, unspecified (principal); R19.00 Intra-abdominal and pelvic swelling, mass and lump, unspecified site
CPT/HCPCS: 36415; 74177; 80053; 83605; 85025; 93005; 96374; 99284; J2270; Q9967